=== PATIENT | male | born 1950 | race Caucasian/White ===

== ENCOUNTER → 2016-07-23 | Outpatient (CLI) | payer BC ==
[~2016-07-23] MED LIST: IOPAMIDOL (ISOVUE-300) 100 ML BTL IV ONE
[2016-07-23 15:09] LABS: CREATININE 1.2 mg/dL (0.7-1.3); GLOMERULAR FILTRATION RATE > 60
== END ==
LOC: FIMAGING 14:29
PROVIDERS: ATTEND Surgery
DX: K57.32 Diverticulitis of large intestine without perforation or abscess without bleeding (principal)
CPT/HCPCS: Q9967

== ENCOUNTER 2016-08-06 07:21 | Day surgery (SDC) | payer BC ==
[2016-08-06] MEDS ORDERED: LIDOCAINE 1% 5 ML SDV ONE (07:43)
[2016-08-06] MEDS ORDERED: fentaNYL 100 MCG/2 ML INJ ONE (08:21)
[2016-08-06] MEDS ORDERED: MIDAZOLAM 2 MG/2 ML VIAL ONE (08:21)
--- NOTE | 2016-09-04 05:10 | GOP ---
[f rep st] OPERATIVE REPORT DATE OF OPERATION: 08/06/2016 SURGEON: Lj Matias MD PREOPERATIVE DIAGNOSIS: Diverticulitis status post colostomy. POSTOPERATIVE DIAGNOSIS: Diverticulitis status post colostomy. PROCEDURE PERFORMED: Flexible sigmoidoscopy. FINDINGS: Patient was found to have an adequate rectum with no evidence of ongoing diverticulitis f or the anastomosis. DESCRIPTION OF PROCEDURE: Patient was taken to the special procedure room where he received IV bridgette tion with fentanyl and Versed. He was placed in left lateral decubitus position. The anus was well lubricated, and a flexible sig was introduced and passed approximately 15 cm. Mucosa appeared to b e intact with no evidence of ongoing active disease. Scope was removed. He tolerated procedure wel l, was taken to the recovery room in good condition. There were no complications. /[id number]/MODL
== END 2016-08-06 09:33 | disposition home health service (06) ==
LOC: FSGY 07:21
PROVIDERS: ATTEND Surgery
PROC: 0DJD8ZZ Inspection of Lower Intestinal Tract, Via Natural or Artificial Opening Endoscopic (ICD-10-PCS; principal; 2016-08-06 08:15)
DX: K57.92 Diverticulitis of intestine, part unspecified, without perforation or abscess without bleeding (principal)
CPT/HCPCS: J2250; J3010

== ENCOUNTER 2016-08-07 09:49 | Inpatient (IN) | payer BC ==
[~2016-08-07 09:49] MED LIST changes: +BUPIVACAINE 0.5% 30 ML SDV ONE; -IOPAMIDOL (ISOVUE-300) 100 ML BTL IV ONE; +cefOXitin SODIUM 1 GM in D5W 50 ML IV ONE
[2016-08-07] MEDS ORDERED: LIDOCAINE 1% 5 ML SDV ONE (10:17)
[2016-08-07] MEDS ORDERED: LIDOCAINE 1% 5 ML SDV ID PRN (10:30)
[2016-08-07] MEDS ORDERED: LR 1,000 ML IV ONE (10:30)
[2016-08-07] MEDS ORDERED: MIDAZOLAM 2 MG/2 ML VIAL ONE (12:53)
[2016-08-07] MEDS ORDERED: ROCURONIUM 100 MG/10 ML VIAL ONE (13:06)
[2016-08-07] MEDS ORDERED: LIDOCAINE 2% 100 MG/5 ML SYR ONE (13:06)
[2016-08-07] MEDS ORDERED: PROPOFOL 200 MG/20 ML VIAL ONE (13:06)
[2016-08-07] MEDS ORDERED: METOCLOPRAMIDE 10 MG/2 ML VIAL ONE (13:06)
[2016-08-07] MEDS ORDERED: fentaNYL 250 MCG/5 ML INJ ONE (13:06)
[2016-08-07] MEDS ORDERED: morphINE *ANESTHESIA ONLY* 10 MG/ML VIAL ONE (13:06)
[2016-08-07] MEDS ORDERED: DEXAMETHASONE 4 MG/ML VIAL ONE ×2 (13:06)
[2016-08-07] MEDS ORDERED: fentaNYL 100 MCG/2 ML INJ ONE ×3 (14:53→17:18)
[2016-08-07] MEDS ORDERED: SKIN ADHESIVE (DERMABOND) 1 EACH TP ONE (16:00)
[2016-08-07] MEDS ORDERED: SUGAMMADEX SODIUM 200 MG/2 ML VIAL IVP ONE (16:06)
[2016-08-07] MEDS ORDERED: hydrALAZINE 20 MG/ML VIAL ONE (16:11)
--- NOTE | 2016-08-07 16:43 | POSTOPPROG ---
Post Op Note Date of Operation: 08/07/16 Surgeon: Lj Matias Cytology Manager: Brenda Monsalve PA-C, SONDRA Peterson MS, Jennifer Mora MS Anesthesiologist: Girma Nolasco MD Anesthesia: GET(General Endotracheal) Pre-op Diagnosis: diverting colostomy, history of diverticulitis Post-op Diagnosis: same Procedure: Ex laparotomy, colostomy takedown Inf/Abcess present in the surg proc area at time of surgery?: No EBL: Minimal Complications: none Drains: Darron Rico, [place] Specimen(s): colostomy sent to pathology
[2016-08-07] MEDS ORDERED: NALOXONE HCL 0.4 MG/ML INJ IVP PRN (16:44)
[2016-08-07] MEDS ORDERED: MEPERIDINE 25 MG/ML SYR ONE (16:55)
[2016-08-07] MEDS ORDERED: HYDROmorphONE/DILAUDID 1 MG/ML SYR ONE (17:41)
[2016-08-07] MEDS: NS W/ 20 KCl/L 1,000 ML IV SCH (18:47)
[2016-08-07] MEDS: HYDROmorphONE/DILAUDID 6 MG/30 ML PCA IV PRN (18:48)
[2016-08-07] MEDS: cefOXitin SODIUM 2 GM in D5W 100 ML IV SCH ×2 (18:52→23:49)
[2016-08-07] MEDS: diphenhydrAMINE 25 MG CAP PO PRN (20:23)
[2016-08-08] MEDS: diphenhydrAMINE 25 MG CAP PO PRN ×3 (01:57→15:31)
[2016-08-08] MEDS: cefOXitin SODIUM 2 GM in D5W 100 ML IV SCH ×4 (05:31→23:54)
[2016-08-08 05:35] LABS: HEMATOCRIT 42.7 % (40.0-51.0); MEAN CELL HEMOGLOBIN 32.1 pg (27.9-34.1); MEAN CELL HEMOGLOBIN CONCENTR. 35.1 g/dL (32.4-36.7); MEAN CELL VOLUME 91.4 fL (81.5-99.8); RED BLOOD CELL COUNT 4.67 10^6/uL (4.40-6.38); RED CELL DISTRIBUTION WIDTH 12.5 % (11.5-15.2)
[2016-08-08 05:41] LABS: ANION GAP 9 mEq/L (8-16); CALCIUM 8.6 mg/dL (8.5-10.4); CARBON DIOXIDE 22 mEq/l (22-31); CHLORIDE 103 mEq/L (97-110); CREATININE 1.2 mg/dL (0.7-1.3); GLOMERULAR FILTRATION RATE > 60; GLUCOSE 109 mg/dL (70-100); POTASSIUM 4.7 mEq/L (3.5-5.2); SODIUM 134 mEq/L (134-144)
[2016-08-08] MEDS: HYDROmorphONE/DILAUDID 6 MG/30 ML PCA IV PRN (07:42)
[2016-08-08] MEDS: ENOXAPARIN 40 MG/0.4 ML SYR SC SCH (07:59)
[2016-08-08] MEDS: NS W/ 20 KCl/L 1,000 ML IV SCH (11:18)
[2016-08-08] MEDS: ACETAMINOPHEN 325 MG TAB PO PRN ×2 (15:30→23:56)
--- NOTE | 2016-08-08 17:13 | SOAPPROG ---
SOAP Progress Note Assessment/Plan: Assessment/plan: 66 Y M s/p colostomy takedown, POD#1. Pain controlled, +itching. Benedryl helping. Does not want to try morphine--didn 't help in past. Cr 1.2, cannot give toradol. Ok to add PO tylenol. Afebrile. Wounds intact. Drainage and uop ok. Continue routine post op care. Consider advancing to clears later today. S: Itchy. Pain mostly controlled. No n/v. O: alert, nad mmm no wob, clear anteriorly rrr abd soft, +BS, inc dried sanguinous drainage inferiorly, MIREYA serosanguinous 08/08/16 17:08 Objective: Vital Signs Temp Pulse Resp BP Pulse Ox 37.3 C 109 H 20 156/83 H 91 L 08/08/16 15:38 08/08/16 15:38 08/08/16 15:38 08/08/16 15:38 08/08/16 15:38 Laboratory Results 08/08/16 05:02 08/08/16 05:02 08/07/16 08/08/16 08/09/16 05:59 05:59 05:59 Intake Total 1650 Output Total 1740 1510 Balance -90 -1510 ICD10 Worksheet Patient Problems: Problems Problem Status Onset Diverticulitis large intestine Acute
[2016-08-08] MEDS ORDERED: PNEUMOC 13-VAL CONJ-DIP CRM/PF 0.5 ML SYR IM ONE (18:13)
[2016-08-08] MEDS: ONDANSETRON 4 MG/2 ML VIAL IVP PRN (18:36)
[2016-08-09] MEDS: HYDROmorphONE/DILAUDID 6 MG/30 ML PCA IV PRN (04:24)
[2016-08-09] MEDS: cefOXitin SODIUM 2 GM in D5W 100 ML IV SCH ×4 (05:44→23:14)
[2016-08-09] MEDS: ACETAMINOPHEN 325 MG TAB PO PRN (05:50)
[2016-08-09] MEDS: ENOXAPARIN 40 MG/0.4 ML SYR SC SCH (08:12)
[2016-08-09] MEDS ORDERED: KETOROLAC 15 MG/1 ML SDV IVP SCH (12:00)
[2016-08-09] MEDS ORDERED: NAPROXEN SODIUM 220 MG TAB PO PRN (12:28)
--- NOTE | 2016-08-09 12:30 | SOAPPROG ---
SOAP Progress Note Assessment/Plan: Assessment: 66yo male s/p colostomy takedown, laparotomy (extensive adhesions) Still having some itching likely secondary to pain meds. Tolerating small amount of clears/sips PE awake alert comfortable abdomen drain in place with serosag drainage, nondistended, soft Plan: awaiting further bowel function saw pt with Dr Matias 08/09/16 12:28 Objective: Vital Signs Temp Pulse Resp BP Pulse Ox 37.2 C 98 16 134/83 H 96 08/09/16 11:43 08/09/16 11:43 08/09/16 11:43 08/09/16 11:43 08/09/16 11:43 Laboratory Results 08/08/16 05:02 08/08/16 05:02 08/08/16 08/09/16 08/10/16 05:59 05:59 05:59 Intake Total 1650 4960 300 Output Total 1740 2790 970 Balance -90 2170 -670 ICD10 Worksheet Patient Problems: Problems Problem Status Onset Diverticulitis large intestine Acute
[2016-08-09] MEDS ORDERED: KETOROLAC 15 MG/1 ML SDV IVP ONE (13:00)
[2016-08-09] MEDS: NS W/ 20 KCl/L 1,000 ML IV SCH ×2 (14:22→23:07)
[2016-08-09] MEDS: KETOROLAC 15 MG/1 ML SDV IVP SCH ×2 (18:51→23:14)
[2016-08-09] MEDS: ONDANSETRON 4 MG/2 ML VIAL IVP PRN (22:25)
[2016-08-09] MEDS: diphenhydrAMINE 25 MG CAP PO PRN (22:31)
[2016-08-10] MEDS: KETOROLAC 15 MG/1 ML SDV IVP SCH (05:47)
[2016-08-10] MEDS: cefOXitin SODIUM 2 GM in D5W 100 ML IV SCH ×2 (05:47→12:47)
[2016-08-10] MEDS: ONDANSETRON 4 MG/2 ML VIAL IVP PRN ×2 (05:50→10:40)
[2016-08-10] MEDS: ENOXAPARIN 40 MG/0.4 ML SYR SC SCH (08:14)
[2016-08-10] MEDS ORDERED: NAPROXEN SODIUM 220 MG TAB PO PRN (12:00)
--- NOTE | 2016-08-10 12:04 | SOAPPROG ---
SOAP Progress Note Assessment/Plan: Assessment: DOING WELL POSTOP/ AFEBRILE/ +FLATUS/ WOUND OK Plan:HOME 1-2 DAYS/ ADVANCE DIET 09/03/16 20:48 Objective: Vital Signs Temp Pulse Resp BP Pulse Ox 37 C 99 16 127/78 H 93 08/10/16 10:00 08/10/16 10:00 08/10/16 10:00 08/10/16 10:00 08/10/16 10:00 Laboratory Results 08/08/16 05:02 08/08/16 05:02 08/09/16 08/10/16 08/11/16 05:59 05:59 05:59 Intake Total 3046 5700 Output Total 7530 0874 Balance 2174 794 ICD10 Worksheet Patient Problems: Problems Problem Status Onset Anastomotic leak of intestine Acute Complication of colostomy Acute Diverticulitis large intestine Acute
[2016-08-10] MEDS ORDERED: ONDANSETRON DISINTEGRATING 4 MG TAB PO PRN (12:28)
[2016-08-10] MEDS ORDERED: OXYCODONE/APAP 5/325 TAB PO PRN (12:28)
[2016-08-10] MEDS: HYDROCODONE/APAP 5/325 TAB PO PRN (12:59)
--- NOTE | 2016-08-10 13:07 | SOAPPROG ---
SOAP Progress Note Assessment/Plan: Assessment: 66yo male s/p colostomy takedown, laparotomy (extensive adhesions) Patient is out of bed, sitting in chair comfortably. Was able to walk the hallways this morning with his . Has been able to pass gas. Did remark that he has some difficulty sleeping and would like to start taking Trazodone. PE awake, alert, nad ctab rrr abdominal incisions CDI, no erythema or drainage Plan: Catheter may be removed. Can take home med of trazodone 100 mg po to help him sleep. Percocet and [place] PO prn pain if needed. Possible discharge on Saturday. 08/10/16 12:59 Objective: Vital Signs Temp Pulse Resp BP Pulse Ox 37 C 95 16 118/62 98 08/10/16 12:00 08/10/16 12:00 08/10/16 12:00 08/10/16 12:00 08/10/16 12:00 Laboratory Results 08/08/16 05:02 08/08/16 05:02 08/09/16 08/10/16 08/11/16 05:59 05:59 05:59 Intake Total 4960 3437 Output Total 5682 0118 Balance 2170 792 ICD10 Worksheet Patient Problems: Problems Problem Status Onset Diverticulitis large intestine Acute
[2016-08-10] MEDS ORDERED: BISACODYL 10 MG SUPP PR PRN (13:19)
[2016-08-10] MEDS ORDERED: MAGNESIUM HYDROXIDE 30 ML UDCUP PO PRN (13:19)
[2016-08-10] MEDS ORDERED: POLYETHYLENE GLYCOL 3350 17 GM PKT PO PRN (13:19)
[2016-08-10] MEDS ORDERED: LACTULOSE 20 GM/30 ML UDCUP PO PRN (13:19)
[2016-08-10] MEDS: SENNOSIDES/DOCUSATE SODIUM TAB PO SCH (20:45)
[2016-08-10] MEDS: traZODone 100 MG TAB PO PRN (20:45)
[2016-08-11] MEDS: NS W/ 20 KCl/L 1,000 ML IV SCH ×2 (00:12→08:11)
[2016-08-11] MEDS: HYDROCODONE/APAP 5/325 TAB PO PRN ×4 (04:59→14:54)
[2016-08-11 06:47] LABS: % IMMATURE GRANULYOCYTES 0.5 % (0.0-1.1); ABSOLUTE IMMATURE GRANULOCYTES 0.04 10^3/uL (0.00-0.10); ADD DIFF? NO; ADD MORPH? NO; ADD SCAN? NO; ATYPICAL LYMPHOCYTE FLAG 20 (0-99); FRAGMENT RBC FLAG 0 (0-99); HEMATOCRIT 36.4 % (40.0-51.0); HEMOGLOBIN 13.1 g/dL (13.7-17.5); LEFT SHIFT FLG 0 (0-99); LIPEMIA HEMOLYSIS FLAG 90 (0-99); MEAN CELL HEMOGLOBIN 32.4 pg (27.9-34.1); MEAN CELL VOLUME 90.1 fL (81.5-99.8); MEAN PLATELET VOLUME 9.1 fL (8.7-11.7); PLATELET CLUMPS FLAG 10 (0-99); PLATELET COUNT 160 10^3/uL (150-400); RED BLOOD CELL COUNT 4.04 10^6/uL (4.40-6.38); RED CELL DISTRIBUTION WIDTH 12.2 % (11.5-15.2)
[2016-08-11 06:51] LABS: INR 1.14 (0.83-1.16); PROTIME(PATIENT) 14.5 SEC (12.0-15.0)
[2016-08-11 06:52] LABS: APTT 33.1 SEC (23.0-38.0)
[2016-08-11 07:04] LABS: ANION GAP 10 mEq/L (8-16); CALCIUM 7.9 mg/dL (8.5-10.4); CARBON DIOXIDE 19 mEq/l (22-31); CHLORIDE 106 mEq/L (97-110); CREATININE 0.8 mg/dL (0.7-1.3); GLOMERULAR FILTRATION RATE > 60; GLUCOSE 94 mg/dL (70-100); POTASSIUM 4.3 mEq/L (3.5-5.2); SODIUM 135 mEq/L (134-144)
[2016-08-11] MEDS: ENOXAPARIN 40 MG/0.4 ML SYR SC SCH (08:20)
[2016-08-11] MEDS: SENNOSIDES/DOCUSATE SODIUM TAB PO SCH ×2 (08:21→21:03)
--- NOTE | 2016-08-11 12:42 | SOAPPROG ---
SOAP Progress Note Assessment/Plan: Assessment: s/p colostomy takedown. Flatus but no BM yet. Regular diet Maybe home tomorrow S: Pain controlled O: Sitting in chair. CTAB no increased work of breathing Regular rate BS present. Incision cdi Plan: 08/11/16 12:41 Objective: Vital Signs Temp Pulse Resp BP Pulse Ox 36.8 C 93 16 125/75 H 92 08/11/16 10:54 08/11/16 10:54 08/11/16 10:54 08/11/16 10:54 08/11/16 10:54 Laboratory Results 08/11/16 06:30 08/11/16 06:30 08/10/16 08/11/16 08/12/16 05:59 05:59 05:59 Intake Total 3326 0722 Output Total 6912 6897 Balance 792 454 PT 14.5 SEC (12.0-15.0) 08/11/16 06:30 INR 1.14 (0.83-1.16) 08/11/16 06:30 ICD10 Worksheet Patient Problems: Problems Problem Status Onset Diverticulitis large intestine Acute
[2016-08-11] MEDS: traZODone 100 MG TAB PO PRN (21:03)
[2016-08-12 07:54] VITALS: BP 138/84; PULSE 94; RESP 14; TEMP 98.1; O2SAT 94
[2016-08-12] MEDS: ENOXAPARIN 40 MG/0.4 ML SYR SC SCH (08:20)
[2016-08-12] MEDS: SENNOSIDES/DOCUSATE SODIUM TAB PO SCH (08:22)
--- NOTE | 2016-08-12 09:56 | SOAPPROG ---
SOAP Progress Note Assessment/Plan: Assessment: s/p colostomy takedown. Flatus and BM Regular diet Home today S: Pain controlled O: Sitting in chair. CTAB no increased work of breathing Regular rate BS present. Incision cdi MIREYA with serosang fluid [place] in place Plan: 08/11/16 12:41 08/12/16 09:56 Objective: Vital Signs Temp Pulse Resp BP Pulse Ox 36.7 C 94 14 138/84 H 94 08/12/16 07:53 08/12/16 07:53 08/12/16 07:53 08/12/16 07:53 08/12/16 07:53 Laboratory Results 08/11/16 06:30 08/11/16 06:30 08/11/16 08/12/16 08/13/16 05:59 05:59 05:59 Intake Total 3939 1360 Output Total 3485 2930 75 Balance 454 -1570 -75 PT 14.5 SEC (12.0-15.0) 08/11/16 06:30 INR 1.14 (0.83-1.16) 08/11/16 06:30 ICD10 Worksheet Patient Problems: Problems Problem Status Onset Diverticulitis large intestine Acute
[2016-08-12] MEDS: HYDROCODONE/APAP 5/325 TAB PO PRN (11:33)
--- NOTE | 2016-08-13 21:32 | GDS ---
[f rep st] DISCHARGE SUMMARY REASON FOR ADMISSION: Elective surgery for colostomy takedown. HOSPITAL COURSE: The patient is a pleasant 66-year-old male who came in for elective colostomy take down surgery. He had previous surgery for diverticulitis. He underwent surgery with Dr. Matias on 0 08/07/2016, laparotomy with ostomy takedown. The patient tolerated the surgery well, and his hospita l course was fairly unremarkable, as he eventually regained bowel function. He is instructed to follow up at our office in approximately 10 days. No heavy lifting for 6 weeks. Regular diet. Pathology from the surgery was benign. /[id number]/MODL
--- NOTE | 2016-09-04 05:20 | GOP ---
[f rep st] OPERATIVE REPORT DATE OF OPERATION: 08/07/2016 SURGEON: Lj Matias MD RELIGIOUS HEALER: JULIA Cabral. ANESTHESIOLOGIST: Dr. Micah Nolasco. PREOPERATIVE DIAGNOSIS: Status post perforated diverticulitis with diverting colostomy. POSTOPERATIVE DIAGNOSIS: Status post perforated diverticulitis with diverting colostomy. PROCEDURE PERFORMED: 1. Laparoscopy, exploratory laparotomy with colostomy takedown and low anterior anastomosis. 2. Splenic flexure mobilization. FINDINGS: Patient was found with extensive adhesions preventing a laparoscopic approach and viable colon that would reach to the pelvis. The rectal stump, however, was quite fixed in the pelvis and difficult to dissect free. DESCRIPTION OF PROCEDURE: Patient was taken to the operating room where he received satisfactory ge neral endotracheal anesthesia by Dr. Nolasco, placed in supine position in low stirrups, prepped an d draped in the usual sterile fashion. A short incision was made in the left lower quadrant. A Titi ess needle was inserted. Pneumoperitoneum was established. A trocar was introduced. Adequate visu alization was obtained. As the adhesions were quite extensive in the abdomen it was elected to proc eed with laparotomy. Midline incision was made through the previous old scar and carried carefully through the linea alba. Multiple adhesions were taken down until the pelvis was freed of small nereida l which could be retracted up to the upper abdomen. The colostomy was freed up internally and the l ateral attachments of the descending colon were mobilized up around the splenic flexure. A circulat ion skin incision was then made freeing up the colostomy from the skin level and down through the melendez bcutaneous tissue down to the fascia where it was freed up and dissected free and then reduced into the abdomen. The distal portion of the colon was excised with a LULA stapler and the proximal colon was then mobilized down to the pelvis and appeared to reach adequately. The rectal stump was then f cris up. It was dissected free as best we could from the pelvic area where it was frozen to both la teral monae. Both ureters were identified and spared from injury. As much of the stump as possible was freed up, it did not appear that we could reach it transanally with the EEA stapler. At that p oint, it was elected to open the stump and to a hand-sewn end-to-end anastomosis. This was then com pleted with interrupted single layer of 3-0 silk sutures around the entire circumference of the anas tomosis which was then covered with some adjacent fatty tissue and some tissue glue. The anastomosi s was tested under water and appeared to be quite airtight with no particular difficulties. At that point, a 15 mm MIREYA drain was brought out through one of the trocar sites and placed in the pelvis. The linea alba was closed with a running #1 PDS suture. Wound was infiltrated with 0.5% Marcaine. Skin was closed with skin aaliyah. The colostomy site was closed in 2 layers with 0 Vicryl for the peritoneal layer and #1 PDS for the fascial layer. Skin was closed over a MIREYA drain with skin staple s. That wound was also infiltrated with 0.5% Marcaine. He tolerated procedure well, was taken to [facility] recovery room in satisfactory condition. Blood loss was negligible. /[id number]/MODL
== END 2016-08-12 11:56 | disposition home or self-care (01) | DRG 346 ==
LOC: F3N 09:49 → F3E 15:00
PROVIDERS: ADMIT Surgery; ATTEND Surgery
PROC: 0DSM0ZZ Reposition Descending Colon, Open Approach (ICD-10-PCS; principal; 2016-08-07 14:00)
DX: Z43.3 Encounter for attention to colostomy (principal); L29.8 Other pruritus; T40.605A Adverse effect of unspecified narcotics, initial encounter; Z53.31 Laparoscopic surgical procedure converted to open procedure
CPT/HCPCS: G0009; J0360; J0694; J0697; J1100; J1170; J1200; J1650; J1885; J2001; J2250; J2405; J2704; J2765; J3010

== ENCOUNTER 2016-08-16 09:19 | Inpatient (IN) | payer BC ==
--- NOTE | 2016-08-16 09:27 | EDPHY ---
H & P HPI/ROS: CHIEF COMPLAINT: Stool coming out of colostomy reversal incision. HISTORY OF PRESENT ILLNESS: The patient is a 66-year-old male status-post colostomy reversal on 08/07 who presents with stool exuding from the colostomy incision. He reports that he noticed a small amount of stool coming out of the incision this morning during breakfast. Colostomy had been performed for diverticulitis. When he sat down to go to the bathroom "a bunch of stool started puking out." He admits associated abdominal pain. He denies fever, vomiting. He had a small bowel movement yesterday. He drank Miralax today as he felt constipated. REVIEW OF SYSTEMS: A ten point review of systems was performed and is negative with the exception of the items mentioned in the HPI. 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 psh: Colostomy reversal, Colostomy for diverticulitis, BACK [id number], LEFT PELVIS FX, L ORIF elbow, - Social History Smoking Status: Former smoker Additional Social History: 1. Former smoker 2. Lives with - Physical Exam Exam: General Appearance: Alert. Vital signs reviewed. HR 120. Blood pressure 159/ 91. Afebrile. He appears ill. Eyes: Pupils equal and round, no conjunctival injection, no discharge. Anicteric. ENT, Mouth: Mucous membranes are moist, no oropharyngeal erythema or edema. Neck: No lymphadenopathy, supple. Respiratory: Lungs are clear to auscultation; no wheezes, rales, or rhonchi. Slightly increased respiratory rate. Cardiovascular: Tachycardic. Gastrointestinal: Abdomen is soft and mildly tender tender, no masses or organomegaly, bowel sounds present. Stool from midline vertical abdominal incision, aaliyah intact. Skin: Warm and dry, no rashes on exposed skin, normal color. Back: Nontender to palpation over the thoracolumbar spine. No CVAT. Extremities: No lower extremity edema, no calf tenderness or swelling. Neurological: Alert and oriented. Moving all four extremities easily and equally. Psychiatric: Normal affect. Constitutional: Initial Vital Signs Temperature (C) 36.5 C 08/16/16 09:20 Heart Rate 125 H 08/16/16 09:20 Respiratory Rate 24 H 08/16/16 09:20 Blood Pressure 159/91 H 08/16/16 09:20 O2 Sat (%) 99 08/16/16 09:20 O2 Delivery Mode Nasal Cannula O2 (L/minute) 1 Allergies/Adverse Reactions: gluten Allergy (Severe, Verified 08/02/16 14:14) Other-Enter Comments codeine Allergy (Verified 08/02/16 14:14) Rash Home Medications: Medication Instructions Recorded traZODone [traZODONE 100MG (*)] 100 mg PO HS PRN 03/27/16 Naproxen Sodium [Aleve 220 MG (*)] 220 - 440 mg PO DAILY PRN 08/02/16 Hydrocodone/APAP 5/325 [[place] 1 - 2 tab PO Q4HRS PRN 08/16/16 5/325 (*)] Medical Decision Making ED Course/Re-evaluation: I reviewed the patient's past medical records. He initially had surgery 2015 for perforated diverticulitis and had a colostomy placed. He had the colostomy reversed 08/07 and was discharged from the hospital 08/13. Patient surgical incision appears intact, without dehiscence, but he has stool oozing from his abdominal incision, indicative of anastomotic breakdown and intra-abdominal contamination. The differential diagnosis is limited in this setting, as it is clear what has occurred. He will require surgery. 0955: Consulted with Dr. Matias, surgery. He is on his way to visit the patient. 1023: Dr. Matias is in the ED and has completed his evaluation of the patient. Surgery planned. - Data Points Laboratory Results: Laboratory Results 08/16/16 09:50 08/16/16 09:50 08/16/16 08/16/16 08/16/16 09:50 09:50 09:50 WBC 13.91 10^3/uL H 10^3/uL (3.80-9.50) RBC 4.22 10^6/uL L 10^6/uL (4.40-6.38) Hgb 13.9 g/dL g/dL (13.7-17.5) Hct 37.6 % L % (40.0-51.0) MCV 89.1 fL fL (81.5-99.8) MCH 32.9 pg pg (27.9-34.1) MCHC 37.0 g/dL H g/dL (32.4-36.7) RDW 12.3 % % (11.5-15.2) Plt Count 350 10^3/uL 10^3/uL (150-400) MPV 8.8 fL fL (8.7-11.7) Neut % (Auto) 92.4 % H % (39.3-74.2) Lymph % (Auto) 2.7 % L % (15.0-45.0) [place] % (Auto) 3.8 % L % (4.5-13.0) Eos % (Auto) 0.2 % L % (0.6-7.6) Baso % (Auto) 0.3 % % (0.3-1.7) Nucleat RBC Rel Count 0.0 % % (0.0-0.2) Absolute Neuts (auto) 12.85 10^3/uL H 10^3/uL (1.70-6.50) Absolute Lymphs (auto) 0.37 10^3/uL L 10^3/uL (1.00-3.00) Absolute Monos (auto) 0.53 10^3/uL 10^3/uL (0.30-0.80) Absolute Eos (auto) 0.03 10^3/uL 10^3/uL (0.03-0.40) Absolute Basos (auto) 0.04 10^3/uL 10^3/uL (0.02-0.10) Absolute Nucleated RBC 0.00 10^3/uL 10^3/uL (0-0.01) Immature Gran % 0.6 % % (0.0-1.1) Seg Neutrophils % 85 % % Band Neutrophils % 6 % % Lymphocytes % 6 % % Monocytes % 3 % % Immature Gran # 0.09 10^3/uL 10^3/uL (0.00-0.10) Absolute Seg Neuts 11.82 10^/uL H 10^/uL (1.70-6.50) Absolute Band Neuts 0.83 10^3/uL H 10^3/uL (0.00-0.70) Absolute Lymphocytes 0.83 10^3/uL L 10^3/uL (1.00-3.00) Absolute Monocytes 0.42 10^3/uL 10^3/uL (0.30-0.80) RBC/WBC/PLT Morphology NORMAL (NORMAL) Toxic Granulation PRESENT H Platelet Estimate ADEQUATE (ADEQ) Sodium 131 mEq/L L mEq/L (134-144) Potassium 3.9 mEq/L mEq/L (3.5-5.2) Chloride 96 mEq/L L mEq/L (97-110) Carbon Dioxide 17 mEq/l L mEq/l (22-31) Anion Gap 18 mEq/L H mEq/L (8-16) BUN 16 mg/dL mg/dL (7-23) Creatinine 1.0 mg/dL mg/dL (0.7-1.3) Estimated GFR > 60 Glucose 118 mg/dL H mg/dL (70-100) Calcium 8.8 mg/dL mg/dL (8.5-10.4) Total Bilirubin 1.6 mg/dL H mg/dL (0.1-1.4) AST 39 IU/L IU/L (17-59) ALT 47 IU/L IU/L (21-72) Alkaline Phosphatase 144 IU/L H IU/L (38-126) Total Protein 7.5 g/dL g/dL (6.3-8.2) Albumin 3.6 g/dL g/dL (3.5-5.0) Patient ABO/Rh O POSITIVE Antibody Screen NEGATIVE Medications Given: Discontinued Medications Sodium Chloride (Ns) 1,000 mls @ 0 mls/hr IV ONCE ONE PRN Reason: Wide Open Stop: 08/16/16 10:02 Last Admin: 08/16/16 09:20 Dose: 1,000 mls Sodium Chloride (Ns) 1,000 mls @ 0 mls/hr IV ONCE ONE PRN Reason: Wide Open Stop: 08/16/16 10:30 Last Admin: 08/16/16 10:36 Dose: 1,000 mls Morphine Sulfate (Morphine) 6 mg IVP EDNOW ONE Stop: 08/16/16 09:56 Last Admin: 08/16/16 10:00 Dose: 6 mg Departure - Departure Disposition: [facility] Inpatient Acute Clinical Impression: Complication of colostomy, Anastomotic leak of intestine Condition: Fair Report Scribed for: Kate Aguilera Report Scribed by: Ronni Claudio Date of Report: 08/16/16 Time of Report: 09:35 Physician Review and Approval Statement: 08/16/16 09:27 Portions of this note were transcribed by the medical cost consultant. I, Dr. Kate Aguilera, personally performed the history, physical exam, and medical decision- making; and confirmed the accuracy of the information in the transcribed note.
[2016-08-16] MEDS ORDERED: NS 1,000 ML IV ONE ×2 (10:01→10:29)
[2016-08-16 10:07] LABS: % IMMATURE GRANULYOCYTES 0.6 % (0.0-1.1); ABSOLUTE IMMATURE GRANULOCYTES 0.09 10^3/uL (0.00-0.10); ADD DIFF? NO; ADD MORPH? NO; ADD SCAN? YES; ATYPICAL LYMPHOCYTE FLAG 20 (0-99); FRAGMENT RBC FLAG 0 (0-99); HEMATOCRIT 37.6 % (40.0-51.0); HEMOGLOBIN 13.9 g/dL (13.7-17.5); LIPEMIA HEMOLYSIS FLAG 90 (0-99); MEAN CELL HEMOGLOBIN 32.9 pg (27.9-34.1); MEAN CELL VOLUME 89.1 fL (81.5-99.8); MEAN PLATELET VOLUME 8.8 fL (8.7-11.7); PLATELET CLUMPS FLAG 0 (0-99); PLATELET COUNT 350 10^3/uL (150-400); RED BLOOD CELL COUNT 4.22 10^6/uL (4.40-6.38); RED CELL DISTRIBUTION WIDTH 12.3 % (11.5-15.2)
[2016-08-16 10:16] LABS: LEFT SHIFT FLG 170 (0-99)
[2016-08-16 10:19] LABS: ALANINE AMINOTRANSFERASE 47 IU/L (21-72); ALBUMIN 3.6 g/dL (3.5-5.0); ALKALINE PHOSPHATASE 144 IU/L (38-126); ANION GAP 18 mEq/L (8-16); ASPARTATE AMINOTRANSFERASE 39 IU/L (17-59); BILIRUBIN,TOTAL 1.6 mg/dL (0.1-1.4); CALCIUM 8.8 mg/dL (8.5-10.4); CARBON DIOXIDE 17 mEq/l (22-31); CHLORIDE 96 mEq/L (97-110); GLOMERULAR FILTRATION RATE > 60; GLUCOSE 118 mg/dL (70-100); POTASSIUM 3.9 mEq/L (3.5-5.2); SODIUM 131 mEq/L (134-144); TOTAL PROTEIN 7.5 g/dL (6.3-8.2)
[2016-08-16] MEDS ORDERED: ERTAPENEM 1 GM in NS 100 ML IV ONE (10:29)
[2016-08-16 10:42] LABS: SCAN POSITIVE
[2016-08-16] MEDS ORDERED: OXYCODONE/APAP 5/325 TAB PO PRN (10:57)
[2016-08-16] MEDS ORDERED: HYDROCODONE/APAP 5/325 TAB PO PRN ×2 (10:57→14:22)
[2016-08-16] MEDS ORDERED: ACETAMINOPHEN 325 MG TAB PO PRN ×2 (10:57→14:22)
[2016-08-16] MEDS ORDERED: HYDROmorphONE/DILAUDID 1 MG/ML SYR IVP PRN (10:57)
[2016-08-16] MEDS ORDERED: ONDANSETRON 4 MG/2 ML VIAL IVP PRN ×2 (10:57→14:22)
[2016-08-16] MEDS ORDERED: NS 1,000 ML IV SCH (11:00)
[2016-08-16] MEDS ORDERED: NALOXONE HCL 0.4 MG/ML INJ IVP PRN ×3 (11:03→17:10)
[2016-08-16 11:21] LABS: PLATELET ESTIMATE ADEQUATE (ADEQ)
[2016-08-16 11:29] LABS: TOXIC GRANULATION PRESENT
[2016-08-16] MEDS ORDERED: MIDAZOLAM 2 MG/2 ML VIAL ONE (12:10)
[2016-08-16] MEDS ORDERED: morphINE *ANESTHESIA ONLY* 10 MG/ML VIAL ONE (12:20)
[2016-08-16] MEDS ORDERED: DEXAMETHASONE 4 MG/ML VIAL ONE (12:21)
[2016-08-16] MEDS ORDERED: fentaNYL 100 MCG/2 ML INJ ONE ×2 (12:21→15:27)
[2016-08-16] MEDS ORDERED: ONDANSETRON 4 MG/2 ML VIAL ONE (12:21)
[2016-08-16] MEDS ORDERED: PROPOFOL/EMULSION 500 MG/50 ML BOTTLE IV ONE (12:21)
[2016-08-16] MEDS ORDERED: LIDOCAINE 2% 100 MG/5 ML SYR ONE (12:21)
[2016-08-16] MEDS ORDERED: ROCURONIUM 50 MG/5 ML VIAL ONE ×2 (12:21→13:24)
[2016-08-16] MEDS ORDERED: LIDOCAINE 2% JELLY 5 ML TUBE ONE (12:50)
[2016-08-16] MEDS ORDERED: LIDOCAINE HCL 160 MG/4 ML LTA KIT TP ONE (12:50)
[2016-08-16] MEDS ORDERED: PHENYLEPHRINE 0.5% NASAL 15 ML SPRAY ONE (12:55)
[2016-08-16] MEDS ORDERED: PROPOFOL 200 MG/20 ML VIAL ONE (14:03)
[2016-08-16] MEDS ORDERED: SUGAMMADEX SODIUM 200 MG/2 ML VIAL IVP ONE (14:25)
--- NOTE | 2016-08-16 14:43 | POSTOPPROG ---
Post Op Note Date of Operation: 08/16/16 Surgeon: Lj Matias Guest Relations Executive: Hitesh Torres MD, SONDRA Peterson MS Anesthesiologist: NANDINI ALDRIDGE Anesthesia: GET(General Endotracheal) Pre-op Diagnosis: perforated colon Post-op Diagnosis: same with anastomotic breakdown Indication: peritonitis Procedure: lapartomy, colostomy, wound vac placement Findings: anastomotic breakdown, gross fecal contamination Inf/Abcess present in the surg proc area at time of surgery?: Yes Depth: Organ Space EBL: Minimal Complications: none Drains: Darron Rico, Wound Vac Specimen(s): colon sent to pathology
[2016-08-16] MEDS ORDERED: HYDROmorphONE/DILAUDID 1 MG/ML SYR ONE (15:27)
[2016-08-16] MEDS: HYDROmorphONE/DILAUDID 6 MG/30 ML PCA IV PRN (17:24)
--- NOTE | 2016-08-16 20:27 | SOAPPROG ---
SOAP Progress Note Assessment/Plan: Assessment: POSTOP DOING WELL WITH ADEQUATE URINE OUTPUT AND MINIMAL MIREYA DRAINAGE WOUND OKAY / AFEBRILE / OSTOMY 0 K Plan: JACQUE PERKINS AND A.MJames 08/16/16 20:26 Objective: Vital Signs Temp Pulse Resp BP Pulse Ox 37 C 112 H 16 123/76 H 96 08/16/16 19:53 08/16/16 19:53 08/16/16 19:53 08/16/16 19:53 08/16/16 19:53 08/15/16 08/16/16 08/17/16 05:59 05:59 05:59 Intake Total 2000 Output Total 330 Balance 1670 ICD10 Worksheet Patient Problems: Problems Problem Status Onset Anastomotic leak of intestine Acute Complication of colostomy Acute Diverticulitis large intestine Acute
[2016-08-17] MEDS: HYDROmorphONE/DILAUDID 6 MG/30 ML PCA IV PRN ×2 (01:03→07:46)
[2016-08-17 05:17] LABS: % IMMATURE GRANULYOCYTES 0.4 % (0.0-1.1); ABSOLUTE IMMATURE GRANULOCYTES 0.04 10^3/uL (0.00-0.10); ADD DIFF? NO; ADD MORPH? NO; ADD SCAN? YES; ATYPICAL LYMPHOCYTE FLAG 0 (0-99); FRAGMENT RBC FLAG 0 (0-99); HEMATOCRIT 31.1 % (40.0-51.0); HEMOGLOBIN 10.7 g/dL (13.7-17.5); LIPEMIA HEMOLYSIS FLAG 90 (0-99); MEAN CELL HEMOGLOBIN 31.9 pg (27.9-34.1); MEAN CELL HEMOGLOBIN CONCENTR. 34.4 g/dL (32.4-36.7); MEAN CELL VOLUME 92.8 fL (81.5-99.8); MEAN PLATELET VOLUME 8.8 fL (8.7-11.7); PLATELET CLUMPS FLAG 0 (0-99); PLATELET COUNT 341 10^3/uL (150-400); RED BLOOD CELL COUNT 3.35 10^6/uL (4.40-6.38); RED CELL DISTRIBUTION WIDTH 12.8 % (11.5-15.2)
[2016-08-17 05:22] LABS: LEFT SHIFT FLG 300 (0-99)
[2016-08-17 05:26] LABS: ANION GAP 10 mEq/L (8-16); CALCIUM 7.8 mg/dL (8.5-10.4); CARBON DIOXIDE 20 mEq/l (22-31); CHLORIDE 105 mEq/L (97-110); CREATININE 0.9 mg/dL (0.7-1.3); GLOMERULAR FILTRATION RATE > 60; GLUCOSE 115 mg/dL (70-100); POTASSIUM 4.6 mEq/L (3.5-5.2); SODIUM 135 mEq/L (134-144)
[2016-08-17 06:38] LABS: SCAN NEGATIVE
[2016-08-17] MEDS: NS 1,000 ML IV SCH ×2 (08:54→18:00)
[2016-08-17] MEDS ORDERED: ERTAPENEM 1 GM in NS 100 ML IV SCH (09:00)
[2016-08-17] MEDS: ERTAPENEM 1 GM in NS 100 ML IV SCH (09:08)
[2016-08-17] MEDS ORDERED: NALOXONE HCL 0.4 MG/ML INJ IVP PRN (10:56)
[2016-08-17] MEDS: morphINE PCA 30 MG/30 ML PCA IV PRN ×2 (11:13→23:48)
--- NOTE | 2016-08-17 12:55 | SOAPPROG ---
SOAP Progress Note Assessment/Plan: Assessment: 66yo male s/p laparotomy for leak/breakdown from recent colostomy takedown, new colostomy placed. Hx of diverticulitis. Pain controlled but itching continues, a problem pt has had after each surgery, wants to try morhine TRAP PULLER instead of dilaudid PE awake alert abdomen VAC in place, ostomy in place, abdomen soft Plan: keep NPO for now will discuss with Dr Matias 08/17/16 12:50 Objective: Vital Signs Temp Pulse Resp BP Pulse Ox 36.6 C 97 16 120/72 93 08/17/16 10:00 08/17/16 10:00 08/17/16 10:00 08/17/16 10:00 08/17/16 10:00 Laboratory Results 08/17/16 04:32 08/17/16 04:32 08/16/16 08/17/16 08/18/16 05:59 05:59 05:59 Intake Total 1999 Output Total 1790 Balance 210 ICD10 Worksheet Patient Problems: Problems Problem Status Onset Anastomotic leak of intestine Acute Complication of colostomy Acute Diverticulitis large intestine Acute
[2016-08-17] MEDS: FAMOTIDINE 20 MG TAB PO SCH (20:46)
[2016-08-17] MEDS: traZODone 100 MG TAB PO PRN (21:50)
[2016-08-18] MEDS: NS 1,000 ML IV SCH ×3 (02:05→18:13)
[2016-08-18] MEDS: FAMOTIDINE 20 MG TAB PO SCH (07:50)
[2016-08-18] MEDS: ERTAPENEM 1 GM in NS 100 ML IV SCH (07:50)
--- NOTE | 2016-08-18 09:52 | SOAPPROG ---
SOAP Progress Note Assessment/Plan: Assessment: 66yo male s/p laparotomy for leak/breakdown from recent colostomy takedown, new colostomy placed. Hx of diverticulitis. Pain controlled but itching improves on Morphine CONTINUOUS PROCESS TANNER ROTARY DRUM --- a problem pt has had after each surgery, wants to try clear liquids, reports some gas coming out of ostomy PE awake alert chest CTA B/L abdomen VAC in place, ostomy in place, abdomen soft, no significant bowel sounds , MIREYA drain with small amount of serosag drainage Plan: keep NPO for now might try trial if small amount of clears but will discuss with Dr Matias 08/17/16 12:50 08/18/16 09:51 Objective: Vital Signs Temp Pulse Resp BP Pulse Ox 36.9 C 92 16 133/71 H 96 08/18/16 08:00 08/18/16 08:00 08/18/16 08:00 08/18/16 08:00 08/18/16 08:00 Laboratory Results 08/17/16 04:32 08/17/16 04:32 08/17/16 08/18/16 08/19/16 05:59 05:59 05:59 Intake Total 1999 3097 Output Total 1790 1315 200 Balance 210 1782 -200 ICD10 Worksheet Patient Problems: Problems Problem Status Onset Anastomotic leak of intestine Acute Complication of colostomy Acute Diverticulitis large intestine Acute
[2016-08-18] MEDS: morphINE PCA 30 MG/30 ML PCA IV PRN (12:18)
[2016-08-18] MEDS: traZODone 100 MG TAB PO PRN (20:36)
[2016-08-18] MEDS ORDERED: POLYETHYLENE GLYCOL 3350 17 GM PKT PO PRN (21:15)
[2016-08-18] MEDS ORDERED: MAGNESIUM HYDROXIDE 30 ML UDCUP PO PRN (21:15)
[2016-08-18] MEDS ORDERED: BISACODYL 10 MG SUPP PR PRN (21:15)
[2016-08-19] MEDS: NS 1,000 ML IV SCH ×3 (02:18→17:24)
[2016-08-19] MEDS: morphINE PCA 30 MG/30 ML PCA IV PRN ×2 (04:29→16:55)
[2016-08-19] MEDS: SENNOSIDES/DOCUSATE SODIUM TAB PO SCH ×2 (08:35→20:41)
[2016-08-19] MEDS: FAMOTIDINE 20 MG TAB PO SCH (08:35)
[2016-08-19] MEDS: ERTAPENEM 1 GM in NS 100 ML IV SCH (08:36)
--- NOTE | 2016-08-19 11:15 | SOAPPROG ---
SOAP Progress Note Assessment/Plan: Assessment: 66yo male s/p laparotomy for leak/breakdown from recent colostomy takedown, new colostomy placed. Hx of diverticulitis. Pain controlled but itching improves on Morphine QUILLER HAND --- a problem pt has had after each surgery, on clear liquids, reports some gas coming out of ostomy. Nervous about having further surgery down the line in 6-12 months. PE awake alert chest CTA B/L abdomen VAC in place, ostomy in place, abdomen soft, no significant bowel sounds , MIREYA drain with small amount of serosag drainage Plan: keep clears for now until ostomy output. wound vac change Saturday, ordered wound care consult. will discuss with Dr Matias 08/17/16 12:50 08/18/16 09:51 08/19/16 11:13 Objective: Vital Signs Temp Pulse Resp BP Pulse Ox 36.7 C 99 16 144/82 H 95 08/19/16 09:58 08/19/16 09:58 08/19/16 09:58 08/19/16 09:58 08/19/16 09:58 Laboratory Results 08/17/16 04:32 08/17/16 04:32 08/18/16 08/19/16 08/20/16 05:59 05:59 05:59 Intake Total 0080 58727 Output Total 4288 2164 700 Balance 1782 9742 -700 ICD10 Worksheet Patient Problems: Problems Problem Status Onset Anastomotic leak of intestine Acute Complication of colostomy Acute Diverticulitis large intestine Acute
[2016-08-19] MEDS: traZODone 100 MG TAB PO PRN (20:42)
[2016-08-20 05:04] LABS: % IMMATURE GRANULYOCYTES 1.2 % (0.0-1.1); ABSOLUTE IMMATURE GRANULOCYTES 0.08 10^3/uL (0.00-0.10); ADD DIFF? NO; ADD MORPH? NO; ADD SCAN? YES; FRAGMENT RBC FLAG 0 (0-99); HEMATOCRIT 27.1 % (40.0-51.0); HEMOGLOBIN 9.7 g/dL (13.7-17.5); LEFT SHIFT FLG 30 (0-99); LIPEMIA HEMOLYSIS FLAG 90 (0-99); MEAN CELL HEMOGLOBIN 32.3 pg (27.9-34.1); MEAN CELL HEMOGLOBIN CONCENTR. 35.8 g/dL (32.4-36.7); MEAN CELL VOLUME 90.3 fL (81.5-99.8); MEAN PLATELET VOLUME 8.5 fL (8.7-11.7); PLATELET CLUMPS FLAG 0 (0-99); PLATELET COUNT 405 10^3/uL (150-400); RED CELL DISTRIBUTION WIDTH 12.6 % (11.5-15.2)
[2016-08-20 05:06] LABS: ATYPICAL LYMPHOCYTE FLAG 120 (0-99)
[2016-08-20 05:30] LABS: ANION GAP 8 mEq/L (8-16); CALCIUM 7.7 mg/dL (8.5-10.4); CARBON DIOXIDE 23 mEq/l (22-31); CHLORIDE 102 mEq/L (97-110); CREATININE 0.8 mg/dL (0.7-1.3); GLOMERULAR FILTRATION RATE > 60; GLUCOSE 86 mg/dL (70-100); SODIUM 133 mEq/L (134-144)
[2016-08-20 06:02] LABS: SCAN NEGATIVE
[2016-08-20] MEDS: SENNOSIDES/DOCUSATE SODIUM TAB PO SCH ×2 (08:44→21:18)
[2016-08-20] MEDS: ERTAPENEM 1 GM in NS 100 ML IV SCH (08:44)
[2016-08-20] MEDS: FAMOTIDINE 20 MG TAB PO SCH (08:44)
[2016-08-20] MEDS: NS 1,000 ML IV SCH ×2 (10:05→17:40)
[2016-08-20] MEDS ORDERED: LIDOCAINE 2% JELLY 5 ML TUBE ONE (11:46)
[2016-08-20] MEDS: morphINE PCA 30 MG/30 ML PCA IV PRN (11:48)
--- NOTE | 2016-08-20 12:21 | SOAPPROG ---
SOAP Progress Note Assessment/Plan: Assessment/Plan: 66 Y M s/p colostomy takedown with subsequent anastomotic leak , now with diverting colostomy and washout. Continue IV abx for peritonitis/anastomotic leak. Bernal is out. Pain control with Morphine DENTAL LAB TECHNICIAN. Not as effective as dilaudid, but this is patient's preference due to sever itching with dilaudid. No ostomy output. Continue clears only. Vac change today. S: afebrile. sore. O: alert, nontoxic but tired appearing no jaundice, mmm ctab rrr abd soft, rare BS, wound with vac to suction. drains scant serosanguinous 08/20/16 12:16 Objective: Vital Signs Temp Pulse Resp BP Pulse Ox 37.1 C 90 16 134/75 H 96 08/20/16 07:09 08/20/16 10:00 08/20/16 10:00 08/20/16 10:00 08/20/16 10:00 Laboratory Results 08/20/16 04:41 08/20/16 04:41 08/19/16 08/20/16 08/21/16 05:59 05:59 05:59 Intake Total 74412 2627 1920 Output Total 3625 4035 895 Balance 9742 -1408 1025 ICD10 Worksheet Patient Problems: Problems Problem Status Onset Anastomotic leak of intestine Acute Complication of colostomy Acute Diverticulitis large intestine Acute
--- NOTE | 2016-08-20 18:41 | WOCRNPDOC ---
[facility] Advanced Assessment Note - Skin Integrity Problem, Advanced Assess Midline Abdomen Surgical Wound/Incision Dressing Type: Black Vac Foam, Wound Vac Dressing Description: Clean/Dry, Intact Exudate Amount: Excessive Exudate Color: Reddish/Yellow Exudate Characteristic(s): Cloudy, Sanguinopurulent Integumentary Issue Intervention: Dressing Changed Susan Wound Tissue: Erythema (mild, at margin) Susan Wound Swelling: Mild Wound Bed Color: Red Wound Bed Constitution: Granulation Tissue, Subcutaneous Fat (minimally present) Wound Edges: Well Defined Site Odor: None (contained by VAC canister) Site Measurement - Head-to-Toe Length X Width X Depth (cm): 21 x 6 x 4 Skin Integrity Problem Comment: VAC dressing change per request to Dr. Matias via JULIA Carmona. 400cc sanguinopurulent drainage in original canister placed in OR: New canister placed in conjunction with dressing change. Education about tx provided verbally/discussion w/Patient and prior to and during care. Patient verbalized anxiety and pain during care, necesitating very slow, careful removal of original dressing drape and foam. RANDEE Francis in room providing additional assistance with pain medication during care. RANDEE Marcum ( float) assisted, clipped abd hair to reduce pulling during dressing removal, in addition to use of adhesive remover and subsequent application of skin prep. Communicated with JULIA Gutierrez proactively for 08/22 dressing change. Resumed tx at standard 125mm Hg neg pressure, continuous settings. - Colostomy Assessment, Advanced Left Abdomen Colostomy Stoma Colostomy Appliance Intact: Yes Colostomy Appliance Currently in Use: 2 07/14, Moldable Stoma Color: Red Stoma Turgor: Moist, Shiny Stoma Shape: Oval Stoma Height: Protruding Slightly Mucocutaneus Junction: Intact Colostomy Effluent: Serosangenous, Thin Colostomy Size - Head-to-Toe Length X Width X Depth (cm): 2.5 x 4.0 x 0.6 protuding profile Colostomy Details: End Peristomal Skin: Intact, Erythematic (mildly) Peristomal Skin Complications: Irritant Contact Dermatitis (mild: Applied skin prep for additional protection.) Colostomy Comment/Treatment Details: VAC drape was placed underneath skin barrier wafer. Removal of drape necessitated replacement of colostomy appliance. Modified medial margin of skin barrier tape to provide for separation between new VAC dressing and new appliance. Patient and verbalize confidence with pouching procedure at home and access to supplies, established following original surgery 4 months ago.
[2016-08-20] MEDS: traZODone 100 MG TAB PO PRN (21:18)
[2016-08-21] MEDS: NS 1,000 ML IV SCH (02:00)
[2016-08-21] MEDS: FAMOTIDINE 20 MG TAB PO SCH (07:56)
[2016-08-21] MEDS: ERTAPENEM 1 GM in NS 100 ML IV SCH (07:56)
[2016-08-21] MEDS ORDERED: HYDROmorphONE/DILAUDID 1 MG/ML SYR IVP ONE (10:27)
[2016-08-21] MEDS ORDERED: LORazepam 0.5 MG TAB PO PRN (10:27)
[2016-08-21] MEDS ORDERED: LIDOCAINE HCL 4% TOPICAL SOLN 50ML MM ONE (10:29)
[2016-08-21] MEDS ORDERED: LORazepam 2 MG/ML INJ IVP ONE ×2 (10:29→13:30)
[2016-08-21] MEDS: SENNOSIDES/DOCUSATE SODIUM TAB PO SCH ×2 (10:45→19:53)
--- NOTE | 2016-08-21 10:45 | SOAPPROG ---
SOAP Progress Note Assessment/Plan: Assessment/Plan: 66 Y M s/p colostomy takedown with subsequent anastomotic leak , now with diverting colostomy and washout. Continue IV abx for peritonitis/anastomotic leak. Ileus resolved. Regular diet. Buff cap IV. Transition to PO pain meds. Vac change tomorrow. Was difficult yesterday. He is anxious about tomorrow. Ativan, dilaudid, and viscous lidocaine ordered. Dispo: Might go home with vac after vac change on Saturday if wound not looking good enough for delayed closure. S: afebrile. +ostomy output. No n/v. vac change was painful yesterday. O: alert, nontoxic but tired appearing no jaundice, mmm ctab rrr abd soft, rare BS, wound with vac to suction. drains scant serosanguinous, soft brown stool in bag 08/21/16 10:42 Objective: Vital Signs Temp Pulse Resp BP Pulse Ox 36.8 C 92 16 140/78 H 96 08/21/16 10:00 08/21/16 10:00 08/21/16 10:00 08/21/16 10:00 08/21/16 10:00 Laboratory Results 08/20/16 04:41 08/20/16 04:41 08/20/16 08/21/16 08/22/16 05:59 05:59 05:59 Intake Total 2627 4197 1060 Output Total 4035 4035 270 Balance -1408 162 790 ICD10 Worksheet Patient Problems: Problems Problem Status Onset Anastomotic leak of intestine Acute Complication of colostomy Acute Diverticulitis large intestine Acute
[2016-08-21] MEDS: morphINE PCA 30 MG/30 ML PCA IV PRN (11:35)
--- NOTE | 2016-08-21 19:00 | SOAPPROG ---
SOAP Progress Note Assessment/Plan: Assessment: POSTOP DOING WELL WITH ADEQUATE URINE OUTPUT AND MINIMAL MIREYA DRAINAGE WOUND OKAY / AFEBRILE / OSTOMY 0 K Plan: JACQUE PERKINS AND A.MJames 08/16/16 20:26 08/21/16 18:59 AFEBRILE / EATING WELL/ OSTOMY OKAY WITH GOOD OUTPUT / HOME 1-2 DAYS Objective: Vital Signs Temp Pulse Resp BP Pulse Ox 36.6 C 99 16 155/88 H 96 08/21/16 18:00 08/21/16 18:00 08/21/16 18:00 08/21/16 18:00 08/21/16 18:00 Laboratory Results 08/20/16 04:41 08/20/16 04:41 08/20/16 08/21/16 08/22/16 05:59 05:59 05:59 Intake Total 2627 4197 1420 Output Total 4035 4035 2030 Balance -1408 162 -610 ICD10 Worksheet Patient Problems: Problems Problem Status Onset Anastomotic leak of intestine Acute Complication of colostomy Acute Diverticulitis large intestine Acute
[2016-08-21] MEDS: traZODone 100 MG TAB PO PRN (20:47)
[2016-08-22] MEDS: ERTAPENEM 1 GM in NS 100 ML IV SCH (08:00)
[2016-08-22] MEDS: FAMOTIDINE 20 MG TAB PO SCH (08:00)
[2016-08-22] MEDS: SENNOSIDES/DOCUSATE SODIUM TAB PO SCH ×2 (08:25→21:45)
--- NOTE | 2016-08-22 11:05 | SOAPPROG ---
SOAP Progress Note Assessment/Plan: Assessment/Plan: 66 Y M s/p colostomy takedown with subsequent anastomotic leak , now with diverting colostomy and washout. Continue IV abx for peritonitis/anastomotic leak. Ileus resolved. Regular diet. Buff cap IV. Transition to PO pain meds. Vac change today. Ativan, dilaudid, and viscous lidocaine ordered. Dispo: Pending appearance of wound at vac change today. Outpatient vac arrangements made if needed. S: afebrile. +ostomy output. No n/v. O: alert, nad no jaundice, mmm ctab rrr abd soft, rare BS, wound with vac to suction. drains serosanguinous with debri, soft brown stool in bag 08/22/16 11:04 Objective: Vital Signs Temp Pulse Resp BP Pulse Ox 36.7 C 92 16 138/74 H 94 08/22/16 10:00 08/22/16 10:00 08/22/16 10:00 08/22/16 10:00 08/22/16 10:00 Laboratory Results 08/20/16 04:41 08/20/16 04:41 08/21/16 08/22/16 08/23/16 05:59 05:59 05:59 Intake Total 4197 1920 Output Total 4035 3430 5 Balance 162 1510 -2024 ICD10 Worksheet Patient Problems: Problems Problem Status Onset Anastomotic leak of intestine Acute Complication of colostomy Acute Diverticulitis large intestine Acute
[2016-08-22] MEDS ORDERED: LORazepam 2 MG/ML INJ IVP ONE (12:00)
[2016-08-22] MEDS ORDERED: LIDOCAINE HCL 4% TOPICAL SOLN 50ML MM ONE (12:00)
[2016-08-22] MEDS ORDERED: HYDROmorphONE/DILAUDID 1 MG/ML SYR IVP ONE (13:30)
--- NOTE | 2016-08-22 13:57 | WOCRNPDOC ---
GUERRERO Advanced Assessment Note - Skin Integrity Problem, Advanced Assess Midline Abdomen Surgical Wound/Incision Dressing Type: Black Vac Foam, Wound Vac Dressing Description: Clean/Dry, Intact Exudate Amount: Minimal Exudate Characteristic(s): Serosanguinous Integumentary Issue Intervention: Dressing Changed Fariha Wound Swelling: Mild Wound Bed Constitution: Granulation Tissue (90%), Loose Slough (10%) Wound Edges: Attached Skin Integrity Problem Comment: Flushed with ns. Hair fariha wound clipped with clippers. Drape and skin prep applied fariha wound. x4 pieces of medium black foam used to fill wound bed. Vac restarted at -125 mm Hg continuous suction without leaks. Patient reported less pain than previous change with 25 ml of lidocain pre-treatment into vac foam. Student Arielle in room for care. Will round again Saturday. - Colostomy Assessment, Advanced Left Abdomen Colostomy Stoma Colostomy Appliance Intact: Yes Colostomy Appliance Currently in Use: Two Piece Flat, 2 3/4, Moldable Stoma Color: Red Stoma Turgor: Moist Stoma Shape: Oval Stoma Height: Protruding Mucocutaneus Junction: Intact Colostomy Effluent: Fecal Colostomy Size - Head-to-Toe Length X Width X Depth (cm): 2 3/4 Peristomal Skin: Intact
[2016-08-22] MEDS: morphINE PCA 30 MG/30 ML PCA IV PRN (21:41)
[2016-08-22] MEDS: traZODone 100 MG TAB PO PRN (21:45)
[2016-08-23] MEDS: NS 1,000 ML IV SCH (06:25)
[2016-08-23] MEDS: SENNOSIDES/DOCUSATE SODIUM TAB PO SCH ×2 (08:37→21:34)
[2016-08-23] MEDS: ERTAPENEM 1 GM in NS 100 ML IV SCH (08:37)
[2016-08-23] MEDS: FAMOTIDINE 20 MG TAB PO SCH (08:37)
--- NOTE | 2016-08-23 09:40 | SOAPPROG ---
SOAP Progress Note Assessment/Plan: Assessment: 66 Y M s/p colostomy takedown with subsequent anastomotic leak, now with diverting colostomy and washout. S: Comfortable in bed reading. Eating well. Gen: awake, alert, nad HEENT: mmm, nonicteric sclera Chest: ctab anteriorly, no wob; wearing NC at 2 L COR: rrr, no murmurs Abd: soft, non-distended; minimal soft brown stool in ostomy, wv with serosang output Plan: Continue regular diet. PO pain meds. Possible abd wound closure in the OR for tomorrow pending wound check in the AM. 08/23/16 09:41 08/23/16 12:35 Objective: Vital Signs Temp Pulse Resp BP Pulse Ox 36.6 C 98 18 126/72 H 95 08/23/16 07:39 08/23/16 07:39 08/23/16 07:39 08/23/16 07:39 08/23/16 07:39 Laboratory Results 08/20/16 04:41 08/20/16 04:41 08/22/16 08/23/16 08/24/16 05:59 05:59 05:59 Intake Total 1920 2500 420 Output Total 3430 4083 300 Balance -1510 1588 120 ICD10 Worksheet Patient Problems: Problems Problem Status Onset Anastomotic leak of intestine Acute Complication of colostomy Acute Diverticulitis large intestine Acute
[2016-08-23] MEDS: OXYCODONE/APAP 5/325 TAB PO PRN ×2 (12:42→16:50)
[2016-08-23] MEDS: diphenhydrAMINE 25 MG CAP PO PRN ×2 (12:42→18:26)
--- NOTE | 2016-08-23 12:44 | SOAPPROG ---
SOAP Progress Note Assessment/Plan: Assessment: 66 Y M s/p colostomy takedown with subsequent anastomotic leak, now with diverting colostomy and washout. S: Comfortable in bed reading. Eating well. Gen: awake, alert, nad HEENT: mmm, nonicteric sclera Chest: ctab anteriorly, no wob; wearing NC at 2 L COR: rrr, no murmurs Abd: soft, non-distended; minimal soft brown stool in ostomy, wv with serosang output Plan: Continue regular diet. PO pain meds. Possible abd wound closure in the OR for tomorrow pending wound check in the AM. 08/23/16 09:41 08/23/16 12:35 08/23/16 12:44 WOUND OKAY AFEBRILE/ OSTOMY OKAY/ POSITIVE BM/ PLAN IS THE WOUND CLOSURE IN THE A.M. Objective: Vital Signs Temp Pulse Resp BP Pulse Ox 36.7 C 88 16 105/65 97 08/23/16 11:31 08/23/16 11:31 08/23/16 11:31 08/23/16 11:31 08/23/16 11:31 Laboratory Results 08/20/16 04:41 08/20/16 04:41 08/22/16 08/23/16 08/24/16 05:59 05:59 05:59 Intake Total 1920 2500 420 Output Total 5800 4085 520 Balance -1510 -1585 -100 ICD10 Worksheet Patient Problems: Problems Problem Status Onset Anastomotic leak of intestine Acute Complication of colostomy Acute Diverticulitis large intestine Acute
[2016-08-23] MEDS: traZODone 100 MG TAB PO PRN (21:35)
[2016-08-24] MEDS: OXYCODONE/APAP 5/325 TAB PO PRN ×4 (01:16→21:12)
[2016-08-24] MEDS: diphenhydrAMINE 25 MG CAP PO PRN (01:19)
[2016-08-24] MEDS ORDERED: HYDROmorphONE/DILAUDID 1 MG/ML SYR ONE (07:41)
[2016-08-24] MEDS ORDERED: HYDROmorphONE/DILAUDID 1 MG/ML SYR IVP PRN (07:43)
[2016-08-24] MEDS ORDERED: HYDROmorphONE/DILAUDID 1 MG/ML SYR IVP ONE (08:00)
[2016-08-24] MEDS: ERTAPENEM 1 GM in NS 100 ML IV SCH (09:50)
[2016-08-24] MEDS: FAMOTIDINE 20 MG TAB PO SCH (09:50)
[2016-08-24] MEDS: SENNOSIDES/DOCUSATE SODIUM TAB PO SCH ×2 (09:50→21:12)
--- NOTE | 2016-08-24 10:26 | SOAPPROG ---
SOAP Progress Note Assessment/Plan: Assessment: 66 Y M s/p colostomy takedown with subsequent anastomotic leak, now with diverting colostomy and washout. S: Comfortable in bed reading. Eating well. Gen: awake, alert, nad HEENT: mmm, nonicteric sclera Chest: ctab anteriorly, no wob; wearing NC at 2 L COR: rrr, no murmurs Abd: soft, non-distended; minimal soft brown stool in ostomy, wv with serosang output Plan: Continue regular diet. PO pain meds. Possible abd wound closure in the OR for tomorrow pending wound check in the AM. 08/23/16 09:41 08/23/16 12:35 08/23/16 12:44 WOUND OKAY AFEBRILE/ OSTOMY OKAY/ POSITIVE BM/ PLAN IS THE WOUND CLOSURE IN THE A.M. 08/24/16 10:25 afebrile/ wound vac removed/ wound clean and grnulating well/ risks and options fully discussed/ will proceed with DPC Objective: Vital Signs Temp Pulse Resp BP Pulse Ox 36.8 C 89 16 127/79 H 93 08/24/16 07:56 08/24/16 07:56 08/24/16 07:56 08/24/16 07:56 08/24/16 07:56 Laboratory Results 08/20/16 04:41 08/20/16 04:41 08/23/16 08/24/16 08/25/16 05:59 05:59 05:59 Intake Total 2500 1660 Output Total 6195 2770 450 Balance -1585 -1110 -450 ICD10 Worksheet Patient Problems: Problems Problem Status Onset Anastomotic leak of intestine Acute Complication of colostomy Acute Diverticulitis large intestine Acute
[2016-08-24] MEDS ORDERED: BUPIVACAINE 0.5% 30 ML SDV ONE (11:54)
[2016-08-24] MEDS ORDERED: fentaNYL 250 MCG/5 ML INJ ONE (12:24)
[2016-08-24] MEDS ORDERED: PROPOFOL/EMULSION 500 MG/50 ML BOTTLE IV ONE (12:24)
[2016-08-24] MEDS ORDERED: MIDAZOLAM 2 MG/2 ML VIAL ONE (12:54)
[2016-08-24] MEDS ORDERED: CALCIUM CHLORIDE 1 GM/10 ML INJ ONE (13:21)
[2016-08-24] MEDS ORDERED: ONDANSETRON 4 MG/2 ML VIAL ONE (13:21)
[2016-08-24] MEDS ORDERED: ROCURONIUM 50 MG/5 ML VIAL ONE (13:21)
[2016-08-24] MEDS ORDERED: SUGAMMADEX SODIUM 200 MG/2 ML VIAL IVP ONE (13:21)
--- NOTE | 2016-08-24 13:59 | POSTOPPROG ---
Post Op Note Date of Operation: 08/24/16 Surgeon: Lj Matias Thermite Welder: SONDRA Peterson MS, Jennifer Mora MS Anesthesiologist: Meka Vargas MD Anesthesia: GET(General Endotracheal) Pre-op Diagnosis: Abdominal wound Post-op Diagnosis: same Procedure: Delayed primary abdominal wound closure Findings: Well-granulating wound Inf/Abcess present in the surg proc area at time of surgery?: Yes Depth: Superfical (Skin SQ) EBL: Minimal Complications: none Drains: Darron Rico Specimen(s): none
[2016-08-24] MEDS ORDERED: fentaNYL 100 MCG/2 ML INJ ONE (14:15)
[2016-08-24] MEDS ORDERED: OXYCODONE/APAP 5/325 TAB ONE (14:17)
--- NOTE | 2016-08-24 14:43 | GOP ---
[f rep st] OPERATIVE REPORT DATE OF OPERATION: 08/24/2016 SURGEON: Lj Matias MD ANESTHESIOLOGIST: Meka Vargas MD PREOPERATIVE DIAGNOSIS: Open abdominal wound. POSTOPERATIVE DIAGNOSIS: Open abdominal wound. PROCEDURE PERFORMED: Delayed primary wound closure. FINDINGS: DESCRIPTION OF PROCEDURE: Patient was taken to the operating room where he received satisfactory ge neral endotracheal anesthesia by Dr. Vargas. He was placed in supine position and prepped and drape d in usual sterile fashion. The wound was debrided. There was excellent granulation tissue through out. The skin edges were elevated up with electrocautery, and a 15 round MIREYA drain was brought out t hrough separate stab incision and placed in the base of the wound. The wound was infiltrated with 0 .5% Marcaine, and the wound was then closed with interrupted 2-0 Vicryl sutures. Skin was then adva nced and closed with skin aaliyah and interrupted 3-0 Prolene sutures. The drain was secured to the skin with a silk suture. He tolerated the procedure well. He was taken to the recovery room in go od condition. There were no complications. /[id number]/MODL
[2016-08-24] MEDS: traZODone 100 MG TAB PO PRN (21:12)
[2016-08-25] MEDS: OXYCODONE/APAP 5/325 TAB PO PRN ×4 (01:09→12:21)
[2016-08-25 05:26] VITALS: RESP 16
[2016-08-25] MEDS: FAMOTIDINE 20 MG TAB PO SCH (08:53)
[2016-08-25] MEDS: ERTAPENEM 1 GM in NS 100 ML IV SCH (08:53)
[2016-08-25] MEDS: SENNOSIDES/DOCUSATE SODIUM TAB PO SCH (08:53)
[2016-08-25 09:08] VITALS: BP 105/80; PULSE 111; TEMP 99.8; O2SAT 94
--- NOTE | 2016-08-25 10:27 | SOAPPROG ---
SOAP Progress Note Assessment/Plan: Assessment: s/p ostomy and wound closure for anastomotic breakdown pain controlled with percocet can dc home f/u office in 5 days for drain removal S: Feeling well, good return of bowel function O: Sitting in chair BS present Ostomy pink incision cdi ctab rrr Plan: 08/25/16 10:22 Objective: Vital Signs Temp Pulse Resp BP Pulse Ox 37.7 C 111 H 16 105/80 94 08/25/16 08:00 08/25/16 08:00 08/25/16 08:00 08/25/16 08:00 08/25/16 08:00 Laboratory Results 08/20/16 04:41 08/20/16 04:41 08/24/16 08/25/16 08/26/16 05:59 05:59 05:59 Intake Total 1660 750 Output Total 5340 1310 Balance -1110 -560 ICD10 Worksheet Patient Problems: Problems Problem Status Onset Anastomotic leak of intestine Acute Complication of colostomy Acute Diverticulitis large intestine Acute
--- NOTE | 2016-08-29 11:53 | GDS ---
[f rep st] DISCHARGE SUMMARY DISCHARGE DIAGNOSES: 1. Anastomotic breakdown with peritonitis. 2. Recent colostomy takedown. 3. History of diverting colostomy and sigmoid colectomy for acute diverticulitis. OTHER DIAGNOSES: 1. History of methicillin-resistant Staphylococcus aureus in 2013. 2. Celiac disease. 3. Lumbar spine surgery. 4. Left pelvic fracture. 5. Left elbow surgery. PROCEDURES: 1. Laparotomy and colostomy, with washout and wound VAC placement. 2. Delayed wound closure. HOSPITAL COURSE: The patient is a 66-year-old male with a history of a diverting colostomy and sigm oid colectomy for acute diverticulitis, who underwent a recent colostomy takedown. His postoperativ e course from that surgery was uneventful, and he was discharged to home in stable condition. He re turned to the emergency department with complaints of abdominal pain and feculent drainage from his wounds. He was brought to the operating room and underwent a laparotomy with washout of abdomen and a diverting colostomy. He was, in fact, found to have peritonitis and an anastomotic breakdown. T his procedure was uncomplicated and he tolerated well. He was left with an open wound, and a wound VAC was placed intraoperatively. The patient's postoperative course was relatively uneventful. He did have a difficult time with his first wound VAC change. He was premedicated with Ativan and Dilaudid for his second wound VAC kraft , which he tolerated well. His wound was granulating very well, and it was decided to take him ba ck to the operating room for delayed closure. This procedure was also uncomplicated and he tolerate d it well. DISCHARGE INSTRUCTIONS: Patient was discharged to home in stable condition, with plans for outpatie nt followup. He was discharged with his drain in place. Limitations were discussed prior to him go ing home. He is familiar with colostomy care. Please see medicine reconciliation for accurate disc harge medications . /[id number]/MODL
--- NOTE | 2016-09-22 12:52 | GOP ---
[f rep st] OPERATIVE REPORT DATE OF OPERATION: 08/16/2016 SURGEON: Lj Matias MD ON AIR PERSONALITY: Hitesh Torres MD. ANESTHESIOLOGIST: Shay Soliman MD. PREOPERATIVE DIAGNOSIS: Perforated colon. POSTOPERATIVE DIAGNOSIS: Perforated colon and anastomotic breakdown. PROCEDURE PERFORMED: Laparotomy with end colostomy and wound VAC placement, drainage of abscess, an d wound debridement. FINDINGS: The patient was found to have gross fecal contamination in the subcutaneous and subfascia l level of the pelvis. There was no gross intraabdominal contamination. The area was well walled o ff by the omentum, but it appeared to be the result of disruption of the anterolateral aspect to the suture line. INDICATIONS: The patient was developing localized peritonitis. DESCRIPTION OF PROCEDURE: The patient was taken to the operating room where he received satisfactor y general endotracheal anesthesia by Dr. Soliman. He was placed in a supine position, prepped and matt ped in the usual sterile fashion. A midline abdominal incision was opened and carried down to the s ubcutaneous tissue where contaminated fluid was encountered. The fascia was opened, the abdomen was entered, and a large amount of fecal contamination was encountered. This was suctioned clear and i rrigated clear until it completely resolved. Dissection extended down into the abdomen. The pelvis was walled off by the omentum down to the previous anastomosis. This appeared to have dehisced on the anterolateral side. This was all suctioned clear. The omentum was freed up and freed away. A portion of the omentum was resected for debridement's sake. The proximal colon was cross clamped wi th an atraumatic bowel clamp. Because of the gross contamination, it was not elected to try to repa ir this and the remaining portion of the anastomosis was opened and the bowel was retracted away for formation of a colostomy. A rectal stump was then oversewn with a running 3-0 Prolene suture. Bot h ends of the bowel appeared to have adequate blood supply and there was no obvious tension on the i ncision. The reason for the dehiscence is unclear. The majority of the suture line was intact. It had a single-layer interrupted suture anastomosis. Previous old colostomy site was opened back up, extended through the rectus sheath and the fascia. A 2 fingerbreadth opening was created. The pro ximal colon was brought up through this area and secured to the peritoneum with 3-0 Vicryl sutures a nd secured at the fascia with 3-0 Vicryl sutures. The abdominal wound was then heavily irrigated. The subcutaneous tissue was sharply debrided back to good clean tissue. A 15 round silicone MIREYA drai n was brought out through a separate stab incision and placed in the pelvis. The fascia was closed with a running #1 PDS suture. The wound was then packed open. /[id number]/MODL
== END 2016-08-25 12:33 | disposition home health service (06) | DRG 330 ==
LOC: EDUNIT# → FSGY 10:46 → F3E 16:33
PROVIDERS: ADMIT Surgery; ATTEND Surgery
PROC: 0D1K0Z4 Bypass Ascending Colon to Cutaneous, Open Approach (ICD-10-PCS; principal; 2016-08-16 14:15)
PROC: 0HQ7XZZ Repair Abdomen Skin, External Approach (ICD-10-PCS; 2016-08-24)
DX: K91.89 Other postprocedural complications and disorders of digestive system (principal); K57.20 Diverticulitis of large intestine with perforation and abscess without bleeding; Z86.14 Personal history of Methicillin resistant Staphylococcus aureus infection; Z87.891 Personal history of nicotine dependence
CPT/HCPCS: 96374; J1100; J1170; J1200; J1335; J2001; J2060; J2250; J2270; J2405; J2704; J3010

== ENCOUNTER 2016-09-06 02:35 | Inpatient (IN) | payer BC, OTHER ==
--- NOTE | 2016-09-06 02:58 | EDPHY ---
H & P Stated Complaint: Abdomial pain X 3 days post surgery Time Seen by Provider: 09/06/16 02:42 HPI/ROS: Chief complaint: Abdominal pain and wound discharged HPI: 66-year-old male had a complicated course after in ostomy placement for a complicated diverticulitis in March. Patient had a takedown of his ostomy August 07 but then developed a ostomy week. He is back in the hospital beginning of this month had a wound VAC placed and discharged home on the . He is having increasing bulging and pain at the lower aspect of his incision for the last 2 days. This morning he got up and noticed some drainage from the site. His pain is about a 5/10. No fevers or chills. No nausea or vomiting. Has had normal ostomy output. No urinary symptoms. ROS: 10 point Review of Systems is negative except as noted in the HPI. PMH: Diverticulitis status post ileostomy Medications: Naproxen trazodone Allergies: Codeine and gluten Social History: No smoking, occasional alcohol, occasional at able marijuana Family History: non-contributory Physical Exam: Gen: Awake, Alert, No Distress HEENT: Nose: no rhinorrhea Eyes: PERRLA, EOMI Mouth: Moist mucosa Neck: Supple, no JVD Chest: nontender, lungs clear to auscultation Heart: S1, S2 normal, no murmur Abd: Soft, has a stapled laparotomy scar with moderate crusting and some discharged in the inferior aspect. There is no surrounding erythema. It is tender to touch on the inferior aspect. Mild guarding around the incision. Back: no CVA tenderness, no midline tenderness Ext: no edema, non-tender Skin: no rash Neuro: CN II-XII intact, Sensation grossly intact, Strength 5/5 in bilateral upper and lower extremities - Personal History Current Tetanus/Diphtheria Vaccine: Yes Current Tetanus Diphtheria and Acellular Pertussis (TDAP): Yes Tetanus Vaccine Date: < 10 YRS - Medical/Surgical History Hx Asthma: No Hx Chronic Respiratory Disease: No Hx Diabetes: No Hx Cardiac Disease: No Hx Renal Disease: No Hx Cirrhosis: No Hx Alcoholism: No Hx HIV/AIDS: No Hx Splenectomy or Spleen Trauma: No Other PMH: pmh: MRSA IN LEG(OPEN WOUND)2013, CELIAC, diverticulitis. psh: Colostomy reversal, Colostomy for diverticulitis, BACK [id number], LEFT PELVIS FX, L ORIF elbow, - Social History Smoking Status: Former smoker Constitutional: Initial Vital Signs Temperature (C) 36.5 C 09/06/16 02:36 Heart Rate 103 H 09/06/16 02:36 Respiratory Rate 16 09/06/16 02:36 Blood Pressure 121/72 H 09/06/16 02:36 O2 Sat (%) 98 09/06/16 02:36 O2 Delivery Mode Room Air Allergies/Adverse Reactions: gluten Allergy (Severe, Verified 09/06/16 02:45) Other-Enter Comments codeine Allergy (Verified 09/06/16 02:45) Rash Home Medications: Medication Instructions Recorded traZODone [traZODONE 100MG (*)] 100 mg PO HS PRN 03/27/16 Naproxen Sodium [Aleve 220 MG (*)] 220 - 440 mg PO DAILY PRN 08/02/16 Medical Decision Making - Diagnostics Imaging Results: CT scan shows an abscess measuring 3.5 cm which is deep to the rectus and communicating through to the incision. There is also a small collection subcutaneous air in the upper abdomen which is not contiguous. Imaging: Discussed imaging studies w/ call center analyst Radiologist ED Course/Re-evaluation: Patient with an abscess of his surgery site. I have discussed with Dr. Kwadwo Matias, patient's surgeon. Will admit to his service for further care and planned drainage. Patient's pain is improved after IV pain medications. Will give him IV fluids. He will remain NPO. Patient is not septic or toxic in appearance at this time. - Data Points Laboratory Results: Laboratory Results 09/06/16 02:40 09/06/16 02:40 09/06/16 09/06/16 02:40 02:40 WBC 12.59 10^3/uL H 10^3/uL (3.80-9.50) RBC 3.93 10^6/uL L 10^6/uL (4.40-6.38) Hgb 12.2 g/dL L g/dL (13.7-17.5) Hct 36.2 % L % (40.0-51.0) MCV 92.1 fL fL (81.5-99.8) MCH 31.0 pg pg (27.9-34.1) MCHC 33.7 g/dL g/dL (32.4-36.7) RDW 13.8 % % (11.5-15.2) Plt Count 362 10^3/uL 10^3/uL (150-400) MPV 9.3 fL fL (8.7-11.7) Neut % (Auto) 78.3 % H % (39.3-74.2) Lymph % (Auto) 14.4 % L % (15.0-45.0) [place] % (Auto) 6.0 % % (4.5-13.0) Eos % (Auto) 0.5 % L % (0.6-7.6) Baso % (Auto) 0.2 % L % (0.3-1.7) Nucleat RBC Rel Count 0.0 % % (0.0-0.2) Absolute Neuts (auto) 9.87 10^3/uL H 10^3/uL (1.70-6.50) Absolute Lymphs (auto) 1.81 10^3/uL 10^3/uL (1.00-3.00) Absolute Monos (auto) 0.75 10^3/uL 10^3/uL (0.30-0.80) Absolute Eos (auto) 0.06 10^3/uL 10^3/uL (0.03-0.40) Absolute Basos (auto) 0.03 10^3/uL 10^3/uL (0.02-0.10) Absolute Nucleated RBC 0.00 10^3/uL 10^3/uL (0-0.01) Immature Gran % 0.6 % % (0.0-1.1) Immature Gran # 0.07 10^3/uL 10^3/uL (0.00-0.10) Sodium 139 mEq/L mEq/L (134-144) Potassium 4.3 mEq/L mEq/L (3.5-5.2) Chloride 104 mEq/L mEq/L (97-110) Carbon Dioxide 22 mEq/l mEq/l (22-31) Anion Gap 13 mEq/L mEq/L (8-16) BUN 17 mg/dL mg/dL (7-23) Creatinine 1.1 mg/dL mg/dL (0.7-1.3) Estimated GFR > 60 Glucose 121 mg/dL H mg/dL (70-100) Calcium 9.0 mg/dL mg/dL (8.5-10.4) Total Bilirubin 0.8 mg/dL mg/dL (0.1-1.4) Conjugated Bilirubin 0.5 mg/dL mg/dL (0.0-0.5) Unconjugated Bilirubin 0.3 mg/dL mg/dL (0.0-1.1) AST 24 IU/L IU/L (17-59) ALT 27 IU/L IU/L (21-72) Alkaline Phosphatase 131 IU/L H IU/L (38-126) Total Protein 7.3 g/dL g/dL (6.3-8.2) Albumin 3.4 g/dL L g/dL (3.5-5.0) Lipase 47.0 IU/L IU/L (23-300) Medications Given: Discontinued Medications Morphine Sulfate (Morphine) 4 mg IVP ONCE ONE Stop: 09/06/16 03:02 Last Admin: 09/06/16 03:08 Dose: 4 mg Departure - Departure Disposition: [facility] Inpatient Acute Clinical Impression: Incisional abscess Condition: Fair Referrals: Rupal Arriaga MD [Primary Care Provider] - As per Instructions
[2016-09-06 03:03] LABS: % IMMATURE GRANULYOCYTES 0.6 % (0.0-1.1); ABSOLUTE IMMATURE GRANULOCYTES 0.07 10^3/uL (0.00-0.10); ADD DIFF? NO; ADD MORPH? NO; ADD SCAN? NO; ATYPICAL LYMPHOCYTE FLAG 0 (0-99); FRAGMENT RBC FLAG 0 (0-99); HEMATOCRIT 36.2 % (40.0-51.0); HEMOGLOBIN 12.2 g/dL (13.7-17.5); LEFT SHIFT FLG 80 (0-99); LIPEMIA HEMOLYSIS FLAG 80 (0-99); MEAN CELL HEMOGLOBIN CONCENTR. 33.7 g/dL (32.4-36.7); MEAN CELL VOLUME 92.1 fL (81.5-99.8); MEAN PLATELET VOLUME 9.3 fL (8.7-11.7); PLATELET CLUMPS FLAG 0 (0-99); PLATELET COUNT 362 10^3/uL (150-400); RED BLOOD CELL COUNT 3.93 10^6/uL (4.40-6.38); RED CELL DISTRIBUTION WIDTH 13.8 % (11.5-15.2)
[2016-09-06 03:08] LABS: ALANINE AMINOTRANSFERASE 27 IU/L (21-72); ALBUMIN 3.4 g/dL (3.5-5.0); ALKALINE PHOSPHATASE 131 IU/L (38-126); ANION GAP 13 mEq/L (8-16); ASPARTATE AMINOTRANSFERASE 24 IU/L (17-59); BILIRUBIN,TOTAL 0.8 mg/dL (0.1-1.4); BILIRUBIN-CONJUGATED 0.5 mg/dL (0.0-0.5); BILIRUBIN-UNCONJUGATED 0.3 mg/dL (0.0-1.1); CARBON DIOXIDE 22 mEq/l (22-31); CHLORIDE 104 mEq/L (97-110); CREATININE 1.1 mg/dL (0.7-1.3); GLOMERULAR FILTRATION RATE > 60; GLUCOSE 121 mg/dL (70-100); POTASSIUM 4.3 mEq/L (3.5-5.2); SODIUM 139 mEq/L (134-144); TOTAL PROTEIN 7.3 g/dL (6.3-8.2)
[2016-09-06] MEDS ORDERED: IOPAMIDOL (ISOVUE-300) 100 ML BTL IV ONE (03:13)
[2016-09-06] MEDS: NS 1,000 ML IV SCH ×3 (04:01→17:17)
[2016-09-06] MEDS ORDERED: ONDANSETRON 4 MG/2 ML VIAL IVP ONE (04:03)
[2016-09-06] MEDS ORDERED: NALOXONE HCL 0.4 MG/ML INJ IVP PRN (05:10)
[2016-09-06] MEDS ORDERED: ONDANSETRON 4 MG/2 ML VIAL IVP PRN ×2 (05:10→10:12)
[2016-09-06] MEDS ORDERED: HYDROmorphONE/DILAUDID 6 MG/30 ML PCA IV ONE (05:18)
[2016-09-06] MEDS: HYDROmorphONE/DILAUDID 6 MG/30 ML PCA IV PRN ×2 (05:20→05:27)
[2016-09-06] MEDS ORDERED: ERTAPENEM 1 GM in NS 100 ML IV ONE (05:30)
[2016-09-06] MEDS: diphenhydrAMINE 25 MG CAP PO PRN ×2 (06:39→22:07)
[2016-09-06] MEDS: morphINE PCA 30 MG/30 ML PCA IV PRN ×2 (08:24→22:06)
[2016-09-06] MEDS ORDERED: HYDROCODONE/APAP 5/325 TAB PO PRN (10:12)
[2016-09-06] MEDS: CETIRIZINE 10 MG TAB PO SCH (10:30)
--- NOTE | 2016-09-06 11:52 | SOAPPROG ---
SOAP Progress Note Assessment/Plan: Assessment: 66yo male s/p recent laparotomy for leak after takedown, ostomy placement. Now with incisional abscess. Drainage started during night, pt came to ED. No fevers, pain over drainage site. PE pale, awake alert Chest CTA B/L Abdomen midline stapled incision with inferior portion draining pus. ostomy in place. Plan: opened incision/removed 3 aaliyah and copious amount of pus, used suction. Placed flaquito drain, sutured in place. will consider new imaging over next few days depending on drainage, overall clinical course. regular diet. seen and examined by Dr Matias 09/06/16 11:51 09/06/16 11:53 09/06/16 11:56 Objective: Vital Signs Temp Pulse Resp BP Pulse Ox 36.5 C 86 16 105/70 95 09/06/16 10:22 09/06/16 10:22 09/06/16 10:22 09/06/16 10:22 09/06/16 10:22 Microbiology 09/06/16 07:55 Gram Stain - Final Abdomen - Swab 09/05/16 09/06/16 09/07/16 05:59 05:59 05:59 Intake Total 100 Balance 100 ICD10 Worksheet Patient Problems: Problems Problem Status Onset Incisional abscess Acute Anastomotic leak of intestine Acute Complication of colostomy Acute Diverticulitis large intestine Acute
--- NOTE | 2016-09-06 19:43 | GOP ---
[f rep st] OPERATIVE REPORT DATE OF OPERATION: 09/06/2016 SURGEON: Lj Matias MD PREOPERATIVE DIAGNOSIS: Wound infection POSTOPERATIVE DIAGNOSIS: same PROCEDURE PERFORMED: I and D of wound infection FINDINGS: copious amount of purulent material in the subcutaneous area DESCRIPTION OF PROCEDURE: The patient appears with obvious wound infection. The aaliyah were removed. The wound was opened up. The cavity was entered. Much purulent material was washed away and suctioned out. No connection to below the fascia was easily identifiable. A 1/2-inch Briseida drain was placed in the incision and secured in place with Prolene suture. He tolerated the procedure well. There were no complications. The wound was dressed. /[id number]/MODL MTDD
[2016-09-06] MEDS ORDERED: MAGNESIUM HYDROXIDE 30 ML UDCUP PO PRN (21:41)
[2016-09-06] MEDS ORDERED: BISACODYL 10 MG SUPP PR PRN (21:41)
[2016-09-06] MEDS ORDERED: POLYETHYLENE GLYCOL 3350 17 GM PKT PO PRN (21:41)
[2016-09-06] MEDS ORDERED: LACTULOSE 20 GM/30 ML UDCUP PO PRN (21:41)
[2016-09-06] MEDS: traZODone 100 MG TAB PO SCH (22:06)
[2016-09-07] MEDS ORDERED: IOPAMIDOL (ISOVUE-300) 100 ML BTL IV ONE (09:00)
[2016-09-07] MEDS: diphenhydrAMINE 25 MG CAP PO PRN ×3 (09:30→21:42)
[2016-09-07] MEDS: morphINE PCA 30 MG/30 ML PCA IV PRN (10:27)
--- NOTE | 2016-09-07 10:40 | SOAPPROG ---
SOAP Progress Note Assessment/Plan: Assessment: 66yo male s/p recent laparotomy for leak after takedown, ostomy placement. Now with incisional abscess. Drainage persisted but decreased during night, tolerating regular diet, feels better overall. No fevers, pain over drainage site. PE awake alert Chest CTA B/L Abdomen midline stapled incision with inferior portion draining very small amount of serosag discharge, lfaquito in place. ostomy in place. Plan: will review CT findings with Dr Matias later today and return to explain results to patient. seen and examined by Dr Matias 09/06/16 11:51 09/06/16 11:53 09/06/16 11:56 09/07/16 10:39 Objective: Vital Signs Temp Pulse Resp BP Pulse Ox 36.9 C 85 18 97/60 L 97 09/07/16 08:00 09/07/16 08:00 09/07/16 08:00 09/07/16 08:00 09/07/16 08:00 Microbiology 09/06/16 07:55 Gram Stain - Final Abdomen - Swab 09/06/16 09/07/16 09/08/16 05:59 05:59 05:59 Intake Total 100 3653 Output Total 1650 Balance 100 2002 ICD10 Worksheet Patient Problems: Problems Problem Status Onset Incisional abscess Acute Anastomotic leak of intestine Acute Complication of colostomy Acute Diverticulitis large intestine Acute
[2016-09-07] MEDS: CETIRIZINE 10 MG TAB PO SCH ×2 (10:43→10:45)
[2016-09-07 10:56] LABS: % IMMATURE GRANULYOCYTES 0.6 % (0.0-1.1); ABSOLUTE IMMATURE GRANULOCYTES 0.04 10^3/uL (0.00-0.10); ADD DIFF? NO; ADD MORPH? NO; ADD SCAN? NO; ATYPICAL LYMPHOCYTE FLAG 0 (0-99); FRAGMENT RBC FLAG 0 (0-99); HEMATOCRIT 29.6 % (40.0-51.0); LEFT SHIFT FLG 10 (0-99); LIPEMIA HEMOLYSIS FLAG 90 (0-99); MEAN CELL HEMOGLOBIN 31.6 pg (27.9-34.1); MEAN CELL HEMOGLOBIN CONCENTR. 33.8 g/dL (32.4-36.7); MEAN CELL VOLUME 93.7 fL (81.5-99.8); MEAN PLATELET VOLUME 8.8 fL (8.7-11.7); PLATELET CLUMPS FLAG 0 (0-99); PLATELET COUNT 262 10^3/uL (150-400); RED BLOOD CELL COUNT 3.16 10^6/uL (4.40-6.38); RED CELL DISTRIBUTION WIDTH 14.1 % (11.5-15.2)
[2016-09-07] MEDS: ENOXAPARIN 80 MG/0.8 ML SYR SC SCH ×2 (15:06→21:25)
[2016-09-07] MEDS: WARFARIN SODIUM 5 MG TAB PO SCH (15:14)
[2016-09-07] MEDS: SENNOSIDES/DOCUSATE SODIUM TAB PO SCH ×2 (15:15→21:25)
[2016-09-07] MEDS: NS 1,000 ML IV SCH ×2 (15:18→21:43)
--- NOTE | 2016-09-07 16:39 | SOAPPROG ---
SOAP Progress Note Assessment/Plan: Assessment: afebrile /much decreased drainage / follow-up CT scan shows adequately drained abscess areas Plan: continue IV antibiotics 09/07/16 16:37 Objective: Vital Signs Temp Pulse Resp BP Pulse Ox 36.4 C 85 16 106/65 94 09/07/16 16:00 09/07/16 16:00 09/07/16 16:00 09/07/16 16:00 09/07/16 16:00 Microbiology 09/06/16 07:55 Gram Stain - Final Abdomen - Swab Laboratory Results 09/07/16 10:44 09/06/16 09/07/16 09/08/16 05:59 05:59 05:59 Intake Total 100 3653 Output Total 1650 300 Balance 100 2002 - ICD10 Worksheet Patient Problems: Problems Problem Status Onset Incisional abscess Acute Anastomotic leak of intestine Acute Complication of colostomy Acute Diverticulitis large intestine Acute
[2016-09-07] MEDS: traZODone 100 MG TAB PO SCH (21:26)
[2016-09-08] MEDS: KETOROLAC 15 MG/1 ML SDV IVP SCH ×5 (04:07→23:41)
[2016-09-08] MEDS: NS 1,000 ML IV SCH (08:52)
[2016-09-08] MEDS: ENOXAPARIN 80 MG/0.8 ML SYR SC SCH ×2 (09:18→21:29)
[2016-09-08] MEDS: SENNOSIDES/DOCUSATE SODIUM TAB PO SCH ×2 (09:19→21:30)
[2016-09-08] MEDS: CETIRIZINE 10 MG TAB PO SCH (09:20)
[2016-09-08] MEDS: ERTAPENEM 1 GM in NS 100 ML IV SCH (10:32)
[2016-09-08] MEDS ORDERED: KETOROLAC 15 MG/1 ML SDV IVP SCH (12:00)
--- NOTE | 2016-09-08 14:09 | SOAPPROG ---
SOAP Progress Note Assessment/Plan: Assessment: afebrile /much decreased drainage / follow-up CT scan shows adequately drained abscess areas Plan: continue IV antibiotics 09/07/16 16:37 09/08/16 14:08 AFEBRILE AND LOOKING BETTER/ STILL SOME WOUND DRAINAGE/ ENERGY LEVEL IMPROVING / PLAN IS TO CONTINUE IV ANTIBIOTICS POSSIBLY HOME AND 2 TO 3 DAYS ON ORAL ANTIBIOTICS Objective: Vital Signs Temp Pulse Resp BP Pulse Ox 37.1 C 81 18 121/76 H 94 09/08/16 12:00 09/08/16 12:00 09/08/16 12:00 09/08/16 12:00 09/08/16 12:00 Microbiology 09/06/16 07:55 Gram Stain - Final Abdomen - Swab Laboratory Results 09/07/16 10:44 09/07/16 09/08/16 09/09/16 05:59 05:59 05:59 Intake Total 6053 704 Output Total 0695 9184 Balance 2002 -1585 ICD10 Worksheet Patient Problems: Problems Problem Status Onset Incisional abscess Acute Anastomotic leak of intestine Acute Complication of colostomy Acute Diverticulitis large intestine Acute
[2016-09-08] MEDS: WARFARIN SODIUM 5 MG TAB PO SCH (16:41)
[2016-09-08] MEDS: traZODone 100 MG TAB PO SCH (21:29)
[2016-09-09 05:40] LABS: INR 1.29 (0.83-1.16); PROTIME(PATIENT) 16.1 SEC (12.0-15.0)
[2016-09-09] MEDS: KETOROLAC 15 MG/1 ML SDV IVP SCH ×4 (06:10→23:02)
[2016-09-09] MEDS: ERTAPENEM 1 GM in NS 100 ML IV SCH (09:53)
[2016-09-09] MEDS: SENNOSIDES/DOCUSATE SODIUM TAB PO SCH ×2 (09:53→20:06)
[2016-09-09] MEDS: ENOXAPARIN 80 MG/0.8 ML SYR SC SCH ×2 (09:54→20:06)
[2016-09-09] MEDS: CETIRIZINE 10 MG TAB PO SCH (10:02)
--- NOTE | 2016-09-09 12:45 | SOAPPROG ---
SOIVY Progress Note Assessment/Plan: Assessment: afebrile /much decreased drainage / follow-up CT scan shows adequately drained abscess areas Plan: continue IV antibiotics 09/07/16 16:37 09/08/16 14:08 AFEBRILE AND LOOKING BETTER/ STILL SOME WOUND DRAINAGE/ ENERGY LEVEL IMPROVING / PLAN IS TO CONTINUE IV ANTIBIOTICS POSSIBLY HOME AND 2 TO 3 DAYS ON ORAL ANTIBIOTICS 09/09/16 12:44 AFEBRILE AND COMFORTABLE / WOUND OKAY WITH THE DECREASED DRAINAGE / WOUND CULTURE SHOWS E COLI SENSITIVE TO EVERYTHING / EATING OKAY WE WILL START COUMADIN FOR HIS SPLENIC VEIN THROMBUS / HOME IN 1-2 DAYS ON ORAL ANTIBIOTICS Objective: Vital Signs Temp Pulse Resp BP Pulse Ox 37.0 C 91 16 124/72 H 95 09/09/16 11:35 09/09/16 11:35 09/09/16 11:35 09/09/16 11:35 09/09/16 11:35 Microbiology 09/06/16 07:55 Gram Stain - Final Abdomen - Swab Wound Culture - Final Escherichia Coli Laboratory Results 09/07/16 10:44 09/08/16 09/09/16 09/10/16 05:59 05:59 05:59 Intake Total 950 Output Total 2535 Balance -1585 PT 16.1 SEC (12.0-15.0) H 09/09/16 04:52 INR 1.29 (0.83-1.16) H 09/09/16 04:52 ICD10 Worksheet Patient Problems: Problems Problem Status Onset Incisional abscess Acute Anastomotic leak of intestine Acute Complication of colostomy Acute Diverticulitis large intestine Acute
[2016-09-09] MEDS: WARFARIN SODIUM 5 MG TAB PO SCH (16:13)
[2016-09-09] MEDS: OXYCODONE/APAP 5/325 TAB PO PRN (18:25)
[2016-09-09] MEDS: traZODone 100 MG TAB PO SCH (20:55)
[2016-09-10] MEDS: KETOROLAC 15 MG/1 ML SDV IVP SCH ×4 (05:16→23:31)
[2016-09-10 05:22] LABS: INR 1.67 (0.83-1.16); PROTIME(PATIENT) 19.7 SEC (12.0-15.0)
[2016-09-10 05:23] LABS: APTT 47.5 SEC (23.0-38.0)
[2016-09-10] MEDS ORDERED: LORazepam 2 MG/ML INJ IVP ONE (09:34)
[2016-09-10] MEDS ORDERED: HYDROmorphONE/DILAUDID 1 MG/ML SYR IVP ONE (09:34)
[2016-09-10] MEDS: ENOXAPARIN 80 MG/0.8 ML SYR SC SCH ×2 (09:38→20:04)
[2016-09-10] MEDS: SENNOSIDES/DOCUSATE SODIUM TAB PO SCH ×2 (09:41→20:04)
[2016-09-10] MEDS: CETIRIZINE 10 MG TAB PO SCH (09:42)
--- NOTE | 2016-09-10 09:52 | SOAPPROG ---
SOIVY Progress Note Assessment/Plan: Assessment/Plan: 66 Y M hx perforated diverticulitis, s/p colectomy and diverting colostomy, colostomy takedown and subsequent leak, washout and repeat diverting colostomy, now s/p I&D of abdominal wall wound infection. splenic vein thrombosis. Seen and examined with Dr. Matias. Wound cultures +e coli, susceptible to Levaquin, which pt is tolerating well. Continue IV and plan to change to PO upon d/c. Briseida drain removed. Fascia intact. +tunneling cephalad. +seropurulent drainage without increase upon pressure. Will need to watch in case of subfascial component to abscess/infection, but appears to be adequately drained right now. Packed wound. Removed aaliyah. Splenic v. thrombosis. Coumadin started. INR 1.67 today. Dispo: possibly home tomorrow if continues to do well. S: Increased abdominal pain last evening after lots of walking. O: alert, nad mmm, no jaundice or pallor ctab rrr abd soft wounds: +seropurulent drainage, +granulation, +tunneling cephalad 5 cm. No obvious fascial weakness. no erythema. upper inc cdi. ostomy with soft contents 09/10/16 11:53 Objective: Vital Signs Temp Pulse Resp BP Pulse Ox 37.0 C 86 18 128/90 H 96 09/10/16 08:00 09/10/16 08:00 09/10/16 08:00 09/10/16 08:00 09/10/16 08:00 Laboratory Results 09/07/16 10:44 PT 19.7 SEC (12.0-15.0) H 09/10/16 05:02 INR 1.67 (0.83-1.16) H 09/10/16 05:02 ICD10 Worksheet Patient Problems: Problems Problem Status Onset Incisional abscess Acute Anastomotic leak of intestine Acute Complication of colostomy Acute Diverticulitis large intestine Acute
[2016-09-10] MEDS: WARFARIN SODIUM 5 MG TAB PO SCH (16:21)
[2016-09-10] MEDS: OXYCODONE/APAP 5/325 TAB PO PRN (17:47)
[2016-09-10] MEDS: traZODone 100 MG TAB PO SCH (21:27)
[2016-09-11 05:23] LABS: INR 2.1 (0.83-1.16); PROTIME(PATIENT) 23.7 SEC (12.0-15.0)
[2016-09-11 05:24] LABS: APTT 50.3 SEC (23.0-38.0)
[2016-09-11] MEDS: KETOROLAC 15 MG/1 ML SDV IVP SCH ×2 (05:24→11:35)
[2016-09-11 08:16] VITALS: BP 120/71; PULSE 91; RESP 16; TEMP 98.6; O2SAT 95
[2016-09-11] MEDS: CETIRIZINE 10 MG TAB PO SCH (09:38)
[2016-09-11] MEDS: SENNOSIDES/DOCUSATE SODIUM TAB PO SCH (09:38)
[2016-09-11] MEDS: ENOXAPARIN 80 MG/0.8 ML SYR SC SCH (09:38)
--- NOTE | 2016-09-11 13:36 | PDIAF ---
- Diagnosis Diagnosis: hx diverticulitis, anastomotic leak, abdominal wall abscess Code Status: Full Code - Medication Management Discharge Medications: Medications to Continue on Transfer traZODone [traZODONE 100MG (*)] 100 mg PO HS 03/27/16 [Last Taken 09/05/16] Naproxen Sodium [Aleve 220 MG (*)] 220 - 440 mg PO DAILY PRN 08/02/16 [Last Taken 09/05/16 21:00] Multivitamins [Multivitamin (*)] 1 each PO DAILY 09/06/16 [Last Taken 09/05/16] Warfarin Sodium [Coumadin 5MG (*)] 5 mg PO DAILY AT 4PM #30 tab 09/11/16 [Last Taken Unknown] levOFLOXACIN [Levaquin] 750 mg PO DAILY #14 tablet 09/11/16 [Last Taken Unknown] oxyCODONE/APAP 5/325 [Percocet 5/325 (*)] 2 tab PO Q4HRS PRN #0 tab 09/11/16 [ Last Taken Unknown] Top Cutter Antibiotics: Levaquin 750 mg i PO daily, #14 Discharge Medications: Refer to the Discharge Home Medication list for PRN reason. PICC Care - Routine: N/A - Orders Services needed: Home Care, Registered Nurse Home Care Face to Face: I certify that this patient was under my care and that I had the required [id number] encounter meeting the encounter requirements on the discharge day. My findings support the fact that the patient is homebound as defined in CMS Chapter 7 Medicare Benefits Manual 30.1.1, The condition of the patient is such that there exists a normal inability to leave home and consequently, leaving home would require a considerable and taxing effort. Diet Recommendation: no restrictions on diet Diet Texture: Regular Texture Diet Wound Care Instructions: Please pack wound daily with 1/2 inch iodoform or plain gauze daily. The wound tunnels cephalad. Cover with gauze or abd and tape. Routine ostomy care (patient familiar with this). - Labs/Radiology PT/INR Date: 09/13/16 (please cc Dr. Matias and pt's PCP Dr. Arriaga) - Follow Up Care Current Providers and Referrals: Lj Matias MD [Medical Doctor] - (call for an appointment for either or saturday.) Rupal Arriaga MD [Primary Care Provider] - As per Instructions
--- NOTE | 2016-09-11 14:25 | SOAPPROG ---
SOAP Progress Note Assessment/Plan: Assessment/Plan: 66 Y M hx perforated diverticulitis, s/p colectomy and diverting colostomy, colostomy takedown and subsequent leak, washout and repeat diverting colostomy, now s/p I&D of abdominal wall wound infection. splenic vein thrombosis. Seen and examined with Dr. Matias. Doing well. Less wound drainage. INR 2.10. D/c to home today with home nurse. Plan for daily wound packing, INR labs on , and f/u c Fl[place]io on Saturday. Rx levaquin, warfarin. discussed effects of vit K. S: ready to go home today O: alert, nad mmm, no jaundice or pallor ctab rrr abd soft wounds: min serous drainage +granulation, +tunneling cephalad 5 cm. No obvious fascial weakness. no erythema. upper inc cdi. ostomy with soft contents 09/11/16 14:21 Objective: Vital Signs Temp Pulse Resp BP Pulse Ox 37 C 91 16 120/71 95 09/11/16 08:00 09/11/16 08:00 09/11/16 08:00 09/11/16 08:00 09/11/16 08:00 Laboratory Results 09/07/16 10:44 09/10/16 09/11/16 09/12/16 05:59 05:59 05:59 Intake Total 400 Output Total 300 Balance -300 400 PT 23.7 SEC (12.0-15.0) H 09/11/16 04:55 INR 2.10 (0.83-1.16) H 09/11/16 04:55 ICD10 Worksheet Patient Problems: Problems Problem Status Onset Incisional abscess Acute Anastomotic leak of intestine Acute Complication of colostomy Acute Diverticulitis large intestine Acute
[2016-09-11] MEDS: WARFARIN SODIUM 5 MG TAB PO SCH (15:06)
== END 2016-09-11 15:11 | disposition home health service (06) | DRG 863 ==
LOC: EDUNIT# → F3E 04:49
PROVIDERS: ADMIT Surgery; ATTEND Surgery
PROC: 0H97XZZ Drainage of Abdomen Skin, External Approach (ICD-10-PCS; principal; 2016-09-06)
DX: T81.4XXA Infection following a procedure, initial encounter (principal); B96.20 Unspecified Escherichia coli [E. coli] as the cause of diseases classified elsewhere; I82.890 Acute embolism and thrombosis of other specified veins; Z86.14 Personal history of Methicillin resistant Staphylococcus aureus infection; Z87.891 Personal history of nicotine dependence
CPT/HCPCS: 96374; 97161-GP; 97165-GO; G8978-GP-CI; G8979-GP-CI; G8980-GP-CI; G8987-GO-CI; G8988-GO-CI; G8989-GO-CI; J1170; J1335; J1650; J1885; J1956; J2060; J2270; Q9967

== ENCOUNTER → 2016-12-07 | Outpatient (CLI) | payer BC, OTHER ==
[~2016-12-07] MED LIST changes: -BUPIVACAINE 0.5% 30 ML SDV ONE; +IOPAMIDOL (ISOVUE-300) 100 ML BTL ONE; -cefOXitin SODIUM 1 GM in D5W 50 ML IV ONE
== END ==
LOC: FIMAGING 14:10
PROVIDERS: ATTEND Surgery
DX: Z93.3 Colostomy status (principal); K57.30 Diverticulosis of large intestine without perforation or abscess without bleeding; R91.8 Other nonspecific abnormal finding of lung field
CPT/HCPCS: Q9967

== ENCOUNTER 2016-12-21 07:35 | Day surgery (SDC) | payer BC, OTHER ==
--- NOTE | 2016-12-21 08:45 | CPEKG ---
Heart Rate: 70 RR Interval: 857 P-R Interval: 180 QRSD Interval: 90 QT Interval: 392 QTC Interval: 423 P Venice: 50 QRS Venice: 48 T Wave Venice: 54 EKG Severity - OTHERWISE NORMAL ECG - EKG Impression: SINUS RHYTHM Electronically Signed By: Rohan Souza 24-Dec-2016 05:36:28
[2016-12-21] MEDS ORDERED: LIDOCAINE 1% 2 ML INJ ONE (08:53)
--- NOTE | 2016-12-21 08:57 | GHP ---
[f rep st] PREOP HISTORY AND PHYSICAL DATE OF ADMISSION: 12/21/2016 HISTORY OF PRESENT ILLNESS: Noe is a 66 yo male with a PMH of diverticulitis who underwent abdominal surgery for a perforated colon and subsequently developed an abscess at the inferior portion of his midline incisional wound that underwent I&D and was left open to drain. He was prescribed bactrim. He underwent an abdominal CT scan with contrast to assess the extent of the potential abscess. Because he has had a complicated course, he is concerned about the future Donald's pouch reversal surgery. The patient is ready for a colostomy closure, but needs to have a flexible sigmoidoscopy prior to surgery as well as a CT scan of the abdomen and pelvis. REVIEW OF SYSTEMS: A 10-point review of systems is negative except for as noted above in the HPI. PMH: abdominal pain, celiacs, chronic gastritis, colovesical fistula, diverticulitis, low back pain, MRSA Past Surgical Hx: Colon resection, multiple orthopedic surgeries, tonsillectomy and adenoidectomy. Meds: Flagyl, Levofloxacin, Percocet, Trazadone, Hydroxyzine HCL ALLERGIES: Codeine products, hydromorphone PHYSICAL EXAMINATION: GENERAL: Patient is a pleasant male in no apparent distress. HEAD AND NECK: Normocephalic, atraumatic. CHEST: Clear to auscultation bilaterally. CARDIAC: Regular rate and rhythm. ABDOMEN: Midline incision well healed. Left colostomy in place. Abdomen is soft and nontender throughout 4 quadrants. EXTREMITIES: No lower extremity edema. Normal dorsalis pedis pulses to palpation. ASSESSMENT: Diverticulitis, patient ready for a colostomy closure. PLAN: The patient was seen and examined by Dr. Matias. The patient will have a flexible sigmoidoscopy prior to surgery to evaluate. /[id number]/MODL MTDD
[2016-12-21 09:00] VITALS: PULSE 74; RESP 16
--- NOTE | 2016-12-21 09:03 | PDHPUP ---
History & Physical Update H&P update statement: This history and physical update is based on an assessment of the patient which was completed after admission or registration (within 24 hours), but prior to the surgery/procedure. H&P update: H&P reviewed & patient examined, no change in patient's condition since H&P completed
[2016-12-21] MEDS ORDERED: LR 1,000 ML IV ONE (09:04)
[2016-12-21] MEDS ORDERED: LIDOCAINE 1% 2 ML INJ ID PRN (09:04)
[2016-12-21] MEDS ORDERED: MIDAZOLAM 2 MG/2 ML VIAL IVP ONE (10:10)
--- NOTE | 2016-12-21 10:11 | PDANEPAE ---
ANE Past Medical History - Cardiovascular History Hx Hypertension: No Hx Arrhythmias: No Hx Chest Pain: No Hx Coronary Artery / Peripheral Vascular Disease: No Hx CHF / Valvular Disease: No Hx Palpitations: No - Pulmonary History Hx COPD: No Hx Asthma/Reactive Airway Disease: No Hx Recent Upper Respiratory Infection: No Hx Oxygen in Use at Home: No Hx Sleep Apnea: No Sleep Apnea Screening Result - Last Documented: Negative - Neurologic History Hx Cerebrovascular Accident: No Hx Seizures: No Hx Dementia: No Neurologic History Comment: PREV BACK SURGERY X3 L4-5 - Endocrine History Hx Diabetes: No Hypothyroid: No Hyperthyroid: No Obesity: mild - Renal History Hx Renal Disorders: No - Liver History Hx Hepatic Disorders: No - Neurological & Psychiatric Hx Hx Neurological and Psychiatric Disorders: No - Cancer History Hx Cancer: No - Congenital Disorder History Hx Congenital Disorders: No - GI History Hx Gastrointestinal Disorders: Yes Gastrointestinal History Comment: COLOSTOMY. CELIAC DX. HX OF DIVERTICULITIS. HX OF COLON RESECTION REMOVAL OF 12 INCHES - Other Health History Other Health History: WEARS GLASSES - Chronic Pain History Chronic Pain: No - Surgical History Prior Surgeries: LAPAROTOMY WITH ANASTOMOTIC LEAK RECREATION OF COLOSTOMY WOUND VAC RELATED TO N 08/2016. COLOSTOMY TAKE DOWN 07/2016. LAP, COLON RESECTION, COLOSTOMY . EGD/ COLONOSCOPY 03/2016. BACK SURGERY X3 L4-5. BILATERAL HERNIA REPAIR. LEFT ELBOW ORIF ANE Review of Systems - Exercise capacity METS (RN): 4 METS ANE Patient History - Allergies Allergies/Adverse Reactions: gluten Allergy (Severe, Verified 09/06/16 02:45) Other-Enter Comments codeine Allergy (Verified 09/06/16 02:45) Rash - Home Medications Home Medications: traZODone [traZODONE 100MG (*)] 100 mg PO HS 03/27/16 [Last Taken 12/20/16 21:00 ] Bactrim DS BID 12/20/16 [Last Taken 12/20/16 21:00] Probiotic DAILY 12/20/16 [Last Taken 12/20/16 07:30] Xarelto HS 12/20/16 [Last Taken 12/20/16 21:00] - NPO status NPO Since - Liquids (Date): 12/20/16 NPO Since - Liquids (Time): 22:00 NPO Since - Solids (Date): 08/10/17 NPO Since - Solids (Time): 21:00 - Smoking Hx Smoking Status: Former smoker - Family Anes Hx Family Hx Anesthesia Complications: NONE ANE Labs/Vital Signs - Vital Signs Blood Pressure: 105/76 Heart Rate: 74 Respiratory Rate: 16 O2 Sat (%): 96 Height: 172.72 cm Weight: 77.111 kg ANE Physical Exam - Airway Neck exam: FROM Mallampati Score: Class 1 Mouth exam: normal dental/mouth exam - Pulmonary Pulmonary: no respiratory distress - Cardiovascular Cardiovascular: regular rate and rhythym - ASA Status ASA Status: II ANE Anesthesia Plan Anesthesia Plan: GA w LMA
[2016-12-21] MEDS ORDERED: fentaNYL 100 MCG/2 ML INJ ONE ×3 (10:29→13:42)
[2016-12-21] MEDS ORDERED: PROPOFOL 200 MG/20 ML VIAL ONE ×2 (10:30→10:46)
[2016-12-21] MEDS ORDERED: METHYLENE BLUE 0.5% 50 MG/10 ML AMP ONE (10:32)
[2016-12-21] MEDS ORDERED: epHEDrine SULFATE 10 MG/ML SYR ONE (10:36)
[2016-12-21] MEDS ORDERED: PHENYLEPHRINE HCL 100 MCG/ML SYR ONE (10:36)
[2016-12-21] MEDS ORDERED: THROMBIN(HUM PLAS)/FIBRINOG/CA 5 ML VIAL TP ONE ×2 (11:08→11:47)
[2016-12-21] MEDS ORDERED: BUPIVACAINE/EPI 0.5% 30 ML SDV ONE (11:43)
[2016-12-21] MEDS ORDERED: IOTHALAMATE MEG (CONRAY) 50 ML VIAL IV ONE (11:45)
--- NOTE | 2016-12-21 12:33 | POSTOPPROG ---
Post Op Note Date of Operation: 12/21/16 Surgeon: Lj Matias Consumer Banker: Macrina Morin Anesthesiologist: Librado Anesthesia: GET(General Endotracheal) Pre-op Diagnosis: Fistula, diverticulitis Post-op Diagnosis: Same Indication: Pre colostomy take down Procedure: Mini expl laparotomy, fistula repair with glue, fluoroscopy, flex sig Findings: Colonic fistula Inf/Abcess present in the surg proc area at time of surgery?: No Depth: Deep Incisional (Fascial) EBL: Minimal
[2016-12-21] MEDS ORDERED: MEPERIDINE 25 MG/ML SYR IVP PRN (12:56)
[2016-12-21] MEDS ORDERED: fentaNYL 100 MCG/2 ML INJ IVP PRN (12:56)
[2016-12-21] MEDS ORDERED: LR 500 ML IV PRN (12:56)
[2016-12-21] MEDS ORDERED: HYDROCODONE/APAP 5/325 TAB PO PRN ×2 (12:56→15:27)
[2016-12-21] MEDS ORDERED: PROMETHAZINE HCL 25 MG/ML INJ IVP PRN (12:56)
[2016-12-21] MEDS ORDERED: NALOXONE HCL 0.4 MG/ML INJ IVP PRN (12:56)
[2016-12-21 13:23] VITALS: TEMP 97.7
[2016-12-21] MEDS ORDERED: HYDROCODONE/APAP 5/325 TAB ONE (15:22)
[2016-12-21 16:51] VITALS: BP 78/64; O2SAT 94
[2016-12-22] MEDS ORDERED: ENOXAPARIN 40 MG/0.4 ML SYR SC SCH (09:00)
== END 2016-12-21 16:50 | disposition home or self-care (01) ==
LOC: FSGY 07:35
PROVIDERS: ATTEND Surgery
DX: K57.32 Diverticulitis of large intestine without perforation or abscess without bleeding (principal); K63.2 Fistula of intestine; K29.50 Unspecified chronic gastritis without bleeding; Z90.49 Acquired absence of other specified parts of digestive tract
CPT/HCPCS: J1200; J1956; J2250; J2370; J2704; J3010; Q9961; Q9968

== ENCOUNTER → 2017-01-18 | Outpatient (CLI) | payer BC | LOC: EDSTATUS 11:23 → FIMAGING 12:26 → FLAB 12:26 | PROVIDERS: ATTEND Surgery | DX: T81.4XXA Infection following a procedure, initial encounter (principal) ==

== ENCOUNTER 2017-02-05 10:06 | Inpatient (IN) | payer OTHER, BC ==
--- NOTE | 2017-02-01 15:47 | GHP ---
[f rep st] HISTORY AND PHYSICAL DATE OF ADMISSION: 02/05/2017 CHIEF COMPLAINT: Midline incisional wound, with a history of diverticulitis requiring colostomy. HISTORY OF PRESENT ILLNESS: The patient is a 66-year-old male who is following up for wound care sta tus post mini exploratory laparotomy, colonic fistula repair, and flex sigmoidoscopy for an open abdo genet wound secondary to failed colostomy takedown and anastomotic leak, status post partial colectom y with colostomy for diverticulitis earlier this year. He has been treated with wound VAC for about 4 weeks now. As of 01/18/2017, his wound was not healing well, as well as we had hoped for, and ther e was concern for recurrent fistula, which prompted a wound culture that grew out corynebacterium, an d an x-ray fluoroscopy that revealed a mild trickle of contrast dye from the left posterior aspect of the wound down into the pelvis anterior to the Donald's pouch. The patient was prescribed Levaqui n at the time for bacterial infection. At his last followup visit for this wound, the wound presente d with copious drainage of mucousy and purulent material. Given this, we discussed the possibility o f needing an additional laparotomy with fistula repair, discontinuing his wound VAC, and replacing th e wound with gauze. At this time, doxycycline was added to his antibiotic regimen to cover the cultu red organism. Today, the wound no longer displayed copious drainage. There was some granulation tis argelia present in the wound bed, but it is still recommended that the patient undergo an exploratory lap arotomy. PAST MEDICAL HISTORY: Abdominal pain, celiac disease, chronic gastritis, colon polyps, colovesicular fistula, diverticulitis, low back pain, migraine, MRSA, splenic vein thrombosis. PAST SURGICAL HISTORY: Colon resection, colostomy takedown, incision and drainage of wound in abdome n, multiple orthopedic surgeries. MEDICATIONS: Aleve, doxycycline, trazodone, Xarelto. ALLERGIES: Codeine, hydromorphone. SOCIAL HISTORY: He is a former tobacco user. REVIEW OF SYSTEMS: Ten-point review of systems is negative, except for as noted above in the HPI. PHYSICAL EXAM: GENERAL: Well-groomed, nontoxic, pleasant male. SKIN: Warm, dry. ABDOMEN: Open m idline wound has contracted only minimally, shows granulating tissue in the wound bed that is sparse. There is minimal drainage, and the wound still tracks inferiorly and posteriorly for about 1-2 cm w hen probed with a Q-tip. Fascia appears intact. No erythema or warmth surrounding the wound. ASSESSMENT: The patient has an open abdominal incisional wound with minimal granulation tissue and a possible fistula. PLAN: We are planning for an exploratory laparotomy. There is a small chance that we could take corazon n the colostomy at the same time as the exploratory laparotomy, but I explained that this depends ent irely what is seen when we open him up. The granulation tissue that is present in the wound bed does not look completely healthy, as it does not appear pink and proliferative. These signs may indicate that the healing has slowed down by an underlying infection. He will stay on his antibiotics at thi s time. /[id number]/MODL
[2017-02-05] MEDS ORDERED: LIDOCAINE 1% 2 ML INJ ID PRN (10:22)
[2017-02-05] MEDS ORDERED: LR 1,000 ML IV ONE (10:22)
[2017-02-05] MEDS ORDERED: BUPIVACAINE 0.5% 30 ML SDV ONE (10:38)
[2017-02-05 10:54] LABS: % IMMATURE GRANULYOCYTES 0.2 % (0.0-1.1); ABSOLUTE IMMATURE GRANULOCYTES 0.01 10^3/uL (0.00-0.10); ADD DIFF? NO; ADD MORPH? NO; ADD SCAN? NO; ATYPICAL LYMPHOCYTE FLAG 20 (0-99); FRAGMENT RBC FLAG 0 (0-99); HEMATOCRIT 43.6 % (40.0-51.0); HEMOGLOBIN 15.2 g/dL (13.7-17.5); LEFT SHIFT FLG 0 (0-99); LIPEMIA HEMOLYSIS FLAG 90 (0-99); MEAN CELL HEMOGLOBIN 31.9 pg (27.9-34.1); MEAN CELL HEMOGLOBIN CONCENTR. 34.9 g/dL (32.4-36.7); MEAN CELL VOLUME 91.6 fL (81.5-99.8); PLATELET CLUMPS FLAG 0 (0-99); PLATELET COUNT 197 10^3/uL (150-400); RED BLOOD CELL COUNT 4.76 10^6/uL (4.40-6.38); RED CELL DISTRIBUTION WIDTH 13.4 % (11.5-15.2)
[2017-02-05] MEDS ORDERED: fentaNYL 100 MCG/2 ML INJ ONE ×4 (10:57→13:48)
[2017-02-05] MEDS ORDERED: MIDAZOLAM 2 MG/2 ML VIAL ONE (10:57)
[2017-02-05] MEDS ORDERED: PROPOFOL/EMULSION 500 MG/50 ML BOTTLE IV ONE (10:58)
[2017-02-05 11:17] LABS: ANION GAP 10 mEq/L (8-16); CALCIUM 9.4 mg/dL (8.5-10.4); CARBON DIOXIDE 23 mEq/l (22-31); CHLORIDE 104 mEq/L (97-110); CREATININE 1.1 mg/dL (0.7-1.3); GLOMERULAR FILTRATION RATE > 60; GLUCOSE 94 mg/dL (70-100); POTASSIUM 4.4 mEq/L (3.5-5.2); SODIUM 137 mEq/L (134-144)
[2017-02-05] MEDS ORDERED: METOCLOPRAMIDE 10 MG/2 ML VIAL ONE (11:28)
[2017-02-05] MEDS ORDERED: PHENYLEPHRINE HCL 100 MCG/ML SYR ONE (11:28)
[2017-02-05] MEDS ORDERED: KETOROLAC 30 MG/1 ML SDV ONE (11:28)
[2017-02-05] MEDS ORDERED: SUGAMMADEX SODIUM 200 MG/2 ML VIAL IVP ONE (11:28)
[2017-02-05] MEDS ORDERED: LIDOCAINE 2% 5 ML SDV ONE (11:28)
[2017-02-05] MEDS ORDERED: ONDANSETRON 4 MG/2 ML VIAL ONE (11:28)
[2017-02-05] MEDS ORDERED: RANITIDINE 50 MG/2 ML VIAL ONE (11:28)
[2017-02-05] MEDS ORDERED: ROCURONIUM 50 MG/5 ML VIAL ONE ×2 (11:28→11:48)
[2017-02-05] MEDS ORDERED: NALOXONE HCL 0.4 MG/ML INJ IVP PRN ×2 (11:43→13:51)
[2017-02-05] MEDS ORDERED: DEXAMETHASONE 4 MG/ML VIAL IVP PRN (11:43)
[2017-02-05] MEDS ORDERED: MEPERIDINE 25 MG/ML SYR IVP PRN (11:43)
[2017-02-05] MEDS ORDERED: PROMETHAZINE HCL 25 MG/ML INJ IVP PRN (11:43)
[2017-02-05] MEDS ORDERED: LR 500 ML IV PRN (11:43)
[2017-02-05] MEDS ORDERED: ONDANSETRON 4 MG/2 ML VIAL IVP PRN (11:43)
[2017-02-05] MEDS ORDERED: ALBUTEROL 3 ML DEYVIAL IH PRN (11:43)
[2017-02-05] MEDS ORDERED: METOCLOPRAMIDE 10 MG/2 ML VIAL IVP PRN (11:43)
--- NOTE | 2017-02-05 11:43 | PDANEPAE ---
ANE Past Medical History - Cardiovascular History Hx Hypertension: No Hx Arrhythmias: No Hx Chest Pain: No Hx Coronary Artery / Peripheral Vascular Disease: No Hx CHF / Valvular Disease: No Hx Palpitations: No - Pulmonary History Hx COPD: No Hx Asthma/Reactive Airway Disease: No Hx Recent Upper Respiratory Infection: No Hx Oxygen in Use at Home: No Hx Sleep Apnea: No Sleep Apnea Screening Result - Last Documented: Negative - Neurologic History Hx Cerebrovascular Accident: No Hx Seizures: No Hx Dementia: No Neurologic History Comment: PREV BACK SURGERY X3 L4-5 - Endocrine History Hx Diabetes: No - Renal History Hx Renal Disorders: No - Liver History Hx Hepatic Disorders: No Hepatic History Comment: SMALL CLOT FOUND - SPLEEN - Neurological & Psychiatric Hx Hx Neurological and Psychiatric Disorders: No - Cancer History Hx Cancer: No - Congenital Disorder History Hx Congenital Disorders: No - GI History Hx Gastrointestinal Disorders: Yes Gastrointestinal History Comment: COLOSTOMY. CELIAC DX. HX OF DIVERTICULITIS. HX OF COLON RESECTION REMOVAL OF 12 INCHES - Other Health History Other Health History: WEARS GLASSES - Chronic Pain History Chronic Pain: No - Surgical History Prior Surgeries: 12/21/2016FLEX SIG W/EXP LAP,FISTULECTOMY. LAPAROTOMY WITH ANASTOMOTIC LEAK RECREATION OF COLOSTOMY WOUND VAC RELATED TO N 08/2016. COLOSTOMY TAKE DOWN 07/2016. LAP, COLON RESECTION, COLOSTOMY . EGD/ COLONOSCOPY 03/2016. BACK SURGERY X3 L4-5. BILATERAL HERNIA REPAIR. LEFT ELBOW ORIF ANE Review of Systems Review of Systems: - Exercise capacity METS (RN): 4 METS ANE Patient History - Allergies Allergies/Adverse Reactions: gluten Allergy (Severe, Verified 09/06/16 02:45) Other-Enter Comments codeine Allergy (Verified 09/06/16 02:45) Rash hydromorphone Allergy (Verified 02/04/17 16:32) - Home Medications Home Medications: traZODone [traZODONE 100MG (*)] 100 mg PO HS 03/27/16 [Last Taken 02/04/17] Doxycycline Hyclate [Vibramycin 100 MG (*)] 100 mg PO BID 02/04/17 [Last Taken 02/04/17] Herbals/Supplements -Info Only 1 ea PO DAILY 02/04/17 [Last Taken Unknown] Naproxen Sodium [Aleve 220 MG (*)] 220 mg PO BID PRN 02/04/17 [Last Taken ] Rivaroxaban [Xarelto 10mg (*)] 20 mg PO DAILY 02/04/17 [Last Taken 02/03/17] - NPO status NPO Since - Liquids (Date): 02/04/17 NPO Since - Liquids (Time): 21:00 NPO Since - Solids (Date): 02/04/17 NPO Since - Solids (Time): 19:00 - Smoking Hx Smoking Status: Former smoker - Family Anes Hx Family Hx Anesthesia Complications: NONE ANE Labs/Vital Signs - Labs Result Diagrams: 02/05/17 10:40 02/05/17 10:40 - Vital Signs Blood Pressure: 118/86 Heart Rate: 85 Respiratory Rate: 16 O2 Sat (%): 95 Height: 175.26 cm Weight: 77.111 kg ANE Physical Exam - Airway Mallampati Score: Class 1 Mouth exam: normal dental/mouth exam - Pulmonary Pulmonary: no respiratory distress, no rales or rhonchi, clear to auscultation - Cardiovascular Cardiovascular: regular rate and rhythym - ASA Status ASA Status: III ANE Anesthesia Plan Anesthesia Plan: general endotracheal anesthesia
[2017-02-05] MEDS ORDERED: HYDROmorphONE/DILAUDID 1 MG/ML INJ IVP PRN (12:28)
[2017-02-05] MEDS ORDERED: PROPOFOL 200 MG/20 ML VIAL ONE (12:34)
[2017-02-05] MEDS: fentaNYL 100 MCG/2 ML INJ IVP PRN ×4 (13:35→14:03)
[2017-02-05] MEDS ORDERED: OXYCODONE/APAP 5/325 TAB PO PRN (13:56)
--- NOTE | 2017-02-05 14:02 | POSTOPPROG ---
Post Op Note Date of Operation: 02/05/17 Surgeon: Lj Matias Word Processing Machine Operator: Brenda Monsalve Anesthesiologist: Jadyn Vargas Anesthesia: GET(General Endotracheal) Pre-op Diagnosis: nonhealing abd wound, diverting colostomy status, suspected fistula Post-op Diagnosis: enterocutaneous fistula Procedure: laparotomy c fistulous tract excision c closure of rectal stump Findings: fistulous tract to rectal stump, adjacent to bladder, sutures, adhesions Inf/Abcess present in the surg proc area at time of surgery?: Yes Depth: Organ Space EBL: Minimal Complications: none Drains: Darron Rico, Wound Vac Specimen(s): to pathology
[2017-02-05] MEDS ORDERED: HYDROmorphONE/DILAUDID 1 MG/ML INJ ONE (14:34)
[2017-02-05] MEDS ORDERED: cefOXitin SODIUM 2 GM in D5W 100 ML IV ONE (15:00)
[2017-02-05] MEDS: morphINE PCA 30 MG/30 ML PCA IV PRN (16:49)
[2017-02-05] MEDS: KETOROLAC 15 MG/1 ML SDV IVP SCH ×2 (18:21→23:46)
[2017-02-05] MEDS: D5W 1/2 NS 1,000 ML IV SCH (18:21)
[2017-02-05] MEDS: diphenhydrAMINE 25 MG CAP PO PRN (20:24)
[2017-02-05] MEDS: traZODone 100 MG TAB PO SCH (20:24)
[2017-02-06] MEDS: D5W 1/2 NS 1,000 ML IV SCH ×3 (01:24→18:00)
[2017-02-06 05:05] LABS: HEMOGLOBIN 12.7 g/dL (13.7-17.5)
[2017-02-06 05:19] LABS: ANION GAP 8 mEq/L (8-16); CALCIUM 8.3 mg/dL (8.5-10.4); CARBON DIOXIDE 24 mEq/l (22-31); CHLORIDE 103 mEq/L (97-110); CREATININE 1.2 mg/dL (0.7-1.3); GLOMERULAR FILTRATION RATE > 60; GLUCOSE 110 mg/dL (70-100); POTASSIUM 3.9 mEq/L (3.5-5.2); SODIUM 135 mEq/L (134-144)
[2017-02-06] MEDS: KETOROLAC 15 MG/1 ML SDV IVP SCH ×3 (05:59→18:02)
[2017-02-06] MEDS: diphenhydrAMINE 25 MG CAP PO PRN ×2 (08:22→20:15)
[2017-02-06] MEDS: RIVAROXABAN 10 MG TAB PO SCH (08:22)
[2017-02-06] MEDS ORDERED: FLU VACC QS 2017-18 (3YR+)/PF 0.5 ML SYR (FLUARIX QUAD) IM ONE ×2 (08:38→11:00)
[2017-02-06] MEDS ORDERED: ENOXAPARIN 40 MG/0.4 ML SYR SC SCH (09:00)
--- NOTE | 2017-02-06 10:28 | SOAPPROG ---
SOAP Progress Note Assessment/Plan: Assessment/Plan: 66 Y M complicated past abdominal surgical history now s/p laparotomy with resection of rectocutaneous fistula. Doing well this am. Continue wilkes catheter due to proximity of surgical repair and need for bladder decompression. Advance diet, regular. Buff cap IVF. Plan for vac change on Saturday. Wound care consulted. IV abx for contamination. Dispo: pending. Possibly home after vac change on Saturday pending course. Patient does have a wound vac at home but will need home health care nurse. S: about to get OOB for first time this am. Pain about a 3. O: alert, nad mmm no wob abd soft vac to good suction 02/06/17 10:22 Objective: Vital Signs Temp Pulse Resp BP Pulse Ox 37.2 C 95 16 107/63 94 02/06/17 07:23 02/06/17 09:30 02/06/17 09:30 02/06/17 09:30 02/06/17 09:30 Laboratory Results 02/06/17 04:39 02/06/17 04:39 02/05/17 02/06/17 02/07/17 05:59 05:59 05:59 Intake Total 900 Output Total 510 Balance 390 ICD10 Worksheet Patient Problems: Problems Problem Status Onset Anastomotic leak of intestine Acute Complication of colostomy Acute Diverticulitis large intestine Acute Incisional abscess Acute
[2017-02-06] MEDS: ERTAPENEM 1 GM in NS 100 ML IV SCH (11:24)
--- NOTE | 2017-02-06 13:11 | ASMTCMCOM ---
CM Note CM Note Notes: Pt has complicated past abd surg history. Had expl lap w/resection of fistula on 02/05, currently w/wound vac in place. Plan is to have wound vac change on saturday. He will likely dc home w/ when med stable. Per progress notes, pt has vac at home. He will need C RN. Met w/pt to discuss; he has had [facility] (Jocelyn Faustin RN) in past and would like to use again. Notified Magy at [facility]. Also spoke w/Jocelyn who said they are happy to see him again as long as he can agree to be homebound as this became difficult in past. BARBARA w/f. Date Signed: 02/06/2017 01:10 PM Electronically Signed By:Mildred Alan RN
[2017-02-06] MEDS: traZODone 100 MG TAB PO SCH (20:15)
[2017-02-06] MEDS: morphINE PCA 30 MG/30 ML PCA IV PRN (21:56)
[2017-02-07] MEDS: KETOROLAC 15 MG/1 ML SDV IVP SCH ×5 (00:14→23:47)
[2017-02-07] MEDS: D5W 1/2 NS 1,000 ML IV SCH ×3 (02:09→17:38)
[2017-02-07] MEDS: ERTAPENEM 1 GM in NS 100 ML IV SCH (07:47)
[2017-02-07] MEDS ORDERED: ONDANSETRON DISINTEGRATING 4 MG TAB PO PRN (08:15)
[2017-02-07] MEDS: ONDANSETRON 4 MG/2 ML VIAL IVP PRN ×2 (08:50→17:39)
[2017-02-07] MEDS: RIVAROXABAN 10 MG TAB PO SCH (09:55)
--- NOTE | 2017-02-07 17:10 | SOAPPROG ---
SOAP Progress Note Assessment/Plan: Assessment: 66 Y M complicated past abdominal surgical history now s/p laparotomy with resection of rectocutaneous fistula. Doing well this morning aside from nausea. Cont Zofran for nausea Cont pain management Continue would vac to suction. Will change Vac tomorrow. D/c Bernal Cont regular diet Cont IV abx Dispo: possibly home tomorrow after vac change if tolerating regular diet without N/V. Will need home healthcare nurse Discussed c Dr. Matias S: Feeling nauseous this morning. No vomiting. Pain is well controlled. O: Lying in bed, NAD, alert and oriented MMM Lungs CTAB RRR Abd soft, appropriately TTP near incision, + BS Vac to suction with serosang output Objective: Vital Signs Temp Pulse Resp BP Pulse Ox 37.5 C 99 20 128/79 H 91 L 02/07/17 15:17 02/07/17 15:17 02/07/17 15:17 02/07/17 15:17 02/07/17 15:17 Laboratory Results 02/06/17 04:39 02/06/17 04:39 02/06/17 02/07/17 02/08/17 05:59 05:59 05:59 Intake Total 900 4983 50 Output Total 510 2370 1015 Balance 390 7767 -693 ICD10 Worksheet Patient Problems: Problems Problem Status Onset Anastomotic leak of intestine Acute Complication of colostomy Acute Diverticulitis large intestine Acute Incisional abscess Acute
[2017-02-07] MEDS: traZODone 100 MG TAB PO SCH (21:20)
[2017-02-07] MEDS: diphenhydrAMINE 25 MG CAP PO PRN (21:20)
[2017-02-08] MEDS: D5W 1/2 NS 1,000 ML IV SCH ×3 (01:42→19:42)
[2017-02-08] MEDS: KETOROLAC 15 MG/1 ML SDV IVP SCH ×3 (06:01→17:37)
[2017-02-08] MEDS: ERTAPENEM 1 GM in NS 100 ML IV SCH (08:57)
[2017-02-08] MEDS: RIVAROXABAN 10 MG TAB PO SCH (10:16)
[2017-02-08] MEDS ORDERED: LIDOCAINE HCL 4% TOPICAL SOLN 50ML TP ONE (11:00)
[2017-02-08] MEDS: diphenhydrAMINE 25 MG CAP PO PRN ×2 (11:56→13:15)
--- NOTE | 2017-02-08 12:05 | SOAPPROG ---
SOAP Progress Note Assessment/Plan: Assessment: 66 Y M complicated past abdominal surgical history now s/p laparotomy with resection of rectocutaneous fistula. Cont Zofran for nausea Cont pain management Wound Vac change today by wound care team Cont regular diet Cont IV abx Dispo: possibly home today after vac change or tomorrow. Will need home healthcare nurse Discussed c Dr. Matias S: Experiencing some increased pain this morning after having walked around on the floors. Passing gas and having bowel movements. Denies N/V/D/C O: Lying in bed, NAD, alert and oriented MMM Lungs CTAB RRR Abd soft, appropriately TTP near incision, + BS Vac to suction with serosang output 02/08/17 12:02 Objective: Vital Signs Temp Pulse Resp BP Pulse Ox 37.3 C 91 16 123/72 H 93 02/08/17 08:00 02/08/17 08:00 02/08/17 08:00 02/08/17 08:00 02/08/17 08:00 Laboratory Results 02/06/17 04:39 02/06/17 04:39 02/07/17 02/08/17 02/09/17 05:59 05:59 05:59 Intake Total 4983 850 Output Total 8072 2270 Balance 2613 -2584 ICD10 Worksheet Patient Problems: Problems Problem Status Onset Anastomotic leak of intestine Acute Complication of colostomy Acute Diverticulitis large intestine Acute Incisional abscess Acute
--- NOTE | 2017-02-08 12:55 | PDIAF ---
- Diagnosis Diagnosis: EC fistula Code Status: Full Code - Medication Management Discharge Medications: Medications to Continue on Transfer traZODone [traZODONE 100MG (*)] 100 mg PO HS 03/27/16 [Last Taken 02/04/17] Doxycycline Hyclate [Vibramycin 100 MG (*)] 100 mg PO BID 02/04/17 [Last Taken 02/04/17] Herbals/Supplements -Info Only 1 ea PO DAILY 02/04/17 [Last Taken Unknown] Naproxen Sodium [Aleve 220 MG (*)] 220 mg PO BID PRN 02/04/17 [Last Taken ] Rivaroxaban [Xarelto 10mg (*)] 20 mg PO DAILY 02/04/17 [Last Taken 02/03/17] Ondansetron Odt [Zofran Odt 4 mg (*)] 4 mg PO Q4HRS PRN #14 tab 02/08/17 [Last Taken Unknown] oxyCODONE/APAP 5/325 [Percocet 5/325 (*)] 1 - 2 tab PO Q4 PRN #30 tab 02/08/17 [ Last Taken Unknown] Discharge Medications: Refer to the Discharge Home Medication list for PRN reason. - Orders Services needed: Home Care, Registered Nurse Home Care Face to Face: I certify that this patient was under my care and that I had the required [id number] encounter meeting the encounter requirements on the discharge day. My findings support the fact that the patient is homebound as defined in Home Care Face to Face Continued: CMS Chapter 7 Medicare Benefits Manual 30.1.1 , The condition of the patient is such that there exists a normal inability to leave home and consequently, leaving home would require a considerable and taxing effort. Diet Recommendation: no restrictions on diet Diet Texture: Regular Texture Diet - Follow Up Care Current Providers and Referrals: Lj Matias MD [Medical Doctor] - follow up in 1 week Rupal Arraiga MD [Primary Care Provider] -
--- NOTE | 2017-02-08 14:13 | WOCRNPDOC ---
WOCRN Advanced Assessment Note - Skin Integrity Problem, Advanced Assess Lower Medial Abdomen Dressing Type: Black Vac Foam, Wound Vac Dressing Description: Intact Exudate Amount: Minimal Exudate Color: Reddish/Yellow Exudate Characteristic(s): Serosanguinous Integumentary Issue Intervention: Dressing Changed Fariha Wound Swelling: None Wound Bed Color: Red Wound Bed Constitution: Granulation Tissue, Undermining (1cm from 8-9 o'clock) Wound Edges: Well Defined Site Odor: None Site Measurement - Head-to-Toe Length X Width X Depth (cm): 10.8cm x 4.4cmx1.5cm Skin Integrity Problem Comment: Due to patient report of intense pain w/ previous NPWT dressing changes, order obtained for 4% topical Lidociane solution ; this was instilled using an 18 gauge needle through the vac drape and into the vac sponge, then allowed to take effect for 15 minutes. Lower midline abdominal wound w/ 100% granulation tissue, no apparent necrosis. Trimmed hair from fariha-wound skin to facilitate future dressing changes and to mitgate patient's pain. Wound cleansed w/ NS and gauze, and fraiha-wound skin prepped and draped, and wound repacked w/ 2 pieces of black vac foam. Settings resume at - 125mmHG, low, continuous suction. Patient has had a wound vac at home before, and is ready to DC from a wound care perspective w/ home care as soon as he is medically able. Report given to operations research director Linda.
--- NOTE | 2017-02-08 14:26 | ASMTCMCOM ---
CM Note CM Note Notes: Chart reviewed. Spoke to RN, patient's wound vac and supplies in room. Likely dc to home tomorrow with HC. Call to [facility] relaying discharge date of tomorrow likely. CM to follow should further needs arise. Date Signed: 02/08/2017 02:25 PM Electronically Signed By:Kerri Garcia RN
[2017-02-08 19:19] VITALS: RESP 18
[2017-02-08] MEDS: traZODone 100 MG TAB PO SCH (21:15)
[2017-02-09] MEDS: KETOROLAC 15 MG/1 ML SDV IVP SCH ×3 (01:11→12:37)
[2017-02-09] MEDS: D5W 1/2 NS 1,000 ML IV SCH (03:33)
[2017-02-09 08:29] VITALS: PULSE 83
[2017-02-09] MEDS: RIVAROXABAN 10 MG TAB PO SCH (09:11)
[2017-02-09 10:03] VITALS: BP 141/86; TEMP 98.6; O2SAT 96
[2017-02-09] MEDS: ERTAPENEM 1 GM in NS 100 ML IV SCH (10:12)
--- NOTE | 2017-02-09 11:50 | ASMTCMCOM ---
CM Note CM Note Notes: Pt. ready for d/c today. Met with Pt. and in room. Pt. and familiar with wound vac from the past and are ready to resume [facility] homecare. The family requests Jocelyn Faustin RN for lobsterman follow up since they have been working with her for a long time at [facility]. Confirmed w/ [facility] today that they will resume care tomorrow and Carin Analisa will initially see Pt. Carin states that she will get d/c paperwork off system in office. Date Signed: 02/09/2017 11:49 AM Electronically Signed By:Kalyn Tejada LCSW
--- NOTE | 2017-02-09 15:03 | ASDISCHSUM ---
Discharge Information Plan Status:Home with Home Health Medically Cleared to Leave: Discharge Date:02/09/2017 01:05 PM CM D/C Disposition:Home Health Service ADT D/C Disposition:Home Health Service Projected Discharge Date:02/09/2017 01:05 PM Transportation at D/C:Family Discharge Delay Reason: Follow-Up Date:02/09/2017 01:05 PM Discharge Slot: Final Diagnosis: Placement Information Patient Contact Information Contact Name:MED Relationship: Address:[address] City:[place] Phone: [facility]/Zip Code:[place] [address] Email: Financial Information Financial Class: Primary Plan Desc:MEDICARE INPATIENT Primary Plan Number:[id number] Secondary Plan Desc: OUT OF STATE [facility] Secondary Plan Number:[id number] Assessment Information [facility] CM Progress Note CM Note CM Note Notes: Pt has complicated past abd surg history. Had expl lap w/resection of fistula on 02/05, currently w/wound vac in place. Plan is to have wound vac change on saturday. He will likely dc home w/ when med stable. Per progress notes, pt has vac at home. He will need [facility] RN. Met w/pt to discuss; he has had [facility] (Jocelyn Faustin RN) in past and would like to use again. Notified Magy at [facility]. Also spoke w/Jocelyn who said they are happy to see him again as long as he can agree to be homebound as this became difficult in past. CM w/f. Date Signed: 02/06/2017 01:10 PM Electronically Signed By:Mildred Alan RN [facility] CM Progress Note CM Note CM Note Notes: Chart reviewed. Spoke to RN, patient's wound vac and supplies in room. Likely dc to home tomorrow with [facility]. Call to [facility] relaying discharge date of tomorrow likely. CM to follow should further needs arise. Date Signed: 02/08/2017 02:25 PM Electronically Signed By:Kerri Garcia RN [facility] CM Progress Note CM Note CM Note Notes: Pt. ready for d/c today. Met with Pt. and in room. Pt. and familiar with wound vac from the past and are ready to resume [facility] homecare. The family requests Jocelyn Faustin RN for long term care social worker follow up since they have been working with her for a long time at [facility]. Confirmed w/ [facility] today that they will resume care tomorrow and Carin Hauser will initially see Pt. Carin states that she will get d/c paperwork off system in office. Date Signed: 02/09/2017 11:49 AM Electronically Signed By:Kalyn Tejada LCSW Intervention Information
--- NOTE | 2017-02-13 05:33 | GOP ---
[f rep st] OPERATIVE REPORT DATE OF OPERATION: 02/05/2017 SURGEON: Lj Matias MD ACCESS REPRESENTATIVE: JONNA Winchester ANESTHESIOLOGIST: Dr. Vargas PREOPERATIVE DIAGNOSIS: Colocutaneous fistula status post perforated diverticulitis. POSTOPERATIVE DIAGNOSIS: PROCEDURE PERFORMED: Laparotomy with resection of colocutaneous fistula. FINDINGS: The patient was found to have a nonhealing abdominal wound. He had a diverting colostomy and a colocutaneous fistula arising from the rectal stump. There were some old sutures found in the area, and there was some evidence of an inguinal hernia mesh associated with the incision. It is unc lear if this could be a possible cause of the persistent fistula. ESTIMATED BLOOD LOSS: Less than 100 cc. DESCRIPTION OF PROCEDURE: Patient was taken to the operating room where he received satisfactory gen eral endotracheal anesthesia by Dr. Vargas, placed in a supine position, prepped and draped in usual sterile fashion. An elliptical skin incision was made to excise the midline abdominal wound. Dissec tion was then carried down through the fascia, and carefully down with electrocautery all the way corazon n into essentially the preperitoneal space. This tissue was followed all the way down to the rectal stump wall. At that point multiple sutures were removed. These appeared to be old sutures from the previous closure of the rectum. Some mesh was encountered in the inguinal area and this was resected as well. The entire specimen was removed out to the rectal stump and there was opening and communic ation there, and that was resected along with the fistula track. This was all sent to Pathology. Hemostasis was assured. A portion of the rectal stump was oversewn with a 2-0 Vicryl running suture and then imbricated with a second layer of 3-0 Vicryl interrupted sutures. A [address] hines was brought out through separate stab incision, and placed adjacent to the rectum. The fascia wa s then closed with a running #1 PDS suture, reinforced periodically with 0 Vicryl interrupted sutures , and the skin and subcutaneous tissue were left open, a wound VAC was placed on the incision. He to lerated procedure well, was taken to recovery room in satisfactory condition. There were no complica tions. /[id number]/MODL
== END 2017-02-09 13:05 | disposition home health service (06) | DRG 909 ==
LOC: F3E 10:06
PROVIDERS: ADMIT Surgery; ATTEND Surgery
DX: T81.83XA Persistent postprocedural fistula, initial encounter (principal); K60.4 Rectal fistula; Z93.3 Colostomy status; K90.0 Celiac disease; Z90.49 Acquired absence of other specified parts of digestive tract; Z23 Encounter for immunization
CPT/HCPCS: G0008; J0694; J1170; J1200; J1335; J1885; J2250; J2270; J2370; J2405; J2704; J2765; J2780; J3010

== ENCOUNTER → 2017-08-30 | Outpatient (CLI) | payer BC | LOC: FIMAGING 08:20 | PROVIDERS: ATTEND Surgery | DX: Z43.3 Encounter for attention to colostomy (principal) ==

== ENCOUNTER 2017-10-29 08:53 | Inpatient (IN) | payer BC, OTHER ==
[2017-10-29] MEDS ORDERED: LIDOCAINE 1% 2 ML INJ ID PRN (09:15)
[2017-10-29] MEDS ORDERED: LR 1,000 ML IV ONE (09:15)
[2017-10-29] MEDS ORDERED: cefOXitin SODIUM 2 GM in NS 100 ML IV ONE (09:47)
[2017-10-29 10:14] LABS: PLATELET COUNT 190 10^3/uL (150-400)
[2017-10-29] MEDS ORDERED: MIDAZOLAM 2 MG/2 ML VIAL IVP ONE (10:40)
[2017-10-29] MEDS ORDERED: BUPIVACAINE 0.25% 30 ML SDV ONE ×4 (10:53→14:32)
[2017-10-29] MEDS ORDERED: fentaNYL 100 MCG/2 ML INJ ONE ×2 (10:56→15:45)
[2017-10-29] MEDS ORDERED: PROPOFOL/EMULSION 500 MG/50 ML BOTTLE IV ONE ×2 (10:56→12:58)
[2017-10-29] MEDS ORDERED: morphINE PF 5 MG/10 ML INJ ONE (10:59)
[2017-10-29] MEDS ORDERED: ROCURONIUM 100 MG/10 ML VIAL ONE (11:00)
[2017-10-29] MEDS ORDERED: KETOROLAC 30 MG/1 ML SDV ONE (11:00)
[2017-10-29] MEDS ORDERED: ONDANSETRON 4 MG/2 ML VIAL ONE (11:00)
[2017-10-29] MEDS ORDERED: DEXAMETHASONE 4 MG/ML VIAL ONE ×2 (11:00)
[2017-10-29] MEDS ORDERED: LIDOCAINE HCL 160 MG/4 ML LTA KIT TP ONE (11:19)
[2017-10-29] MEDS ORDERED: PHENYLEPHRINE HCL 100 MCG/ML SYR ONE (11:46)
--- NOTE | 2017-10-29 12:20 | PDANEPAE ---
ANE History of Present Illness ex lap for 1) colostomy takedown 2) temporary ileostomy 3) ventral hernia repair s/p colostomy and repeat surgery for diverticulitis ANE Past Medical History - Cardiovascular History Hx Hypertension: No Hx Arrhythmias: No Hx Chest Pain: No Hx Coronary Artery / Peripheral Vascular Disease: No Hx CHF / Valvular Disease: No Hx Palpitations: No - Pulmonary History Hx COPD: No Hx Asthma/Reactive Airway Disease: No Hx Recent Upper Respiratory Infection: No Hx Oxygen in Use at Home: No Hx Sleep Apnea: No Sleep Apnea Screening Result - Last Documented: Negative - Neurologic History Hx Cerebrovascular Accident: No Hx Seizures: No Hx Dementia: No Neurologic History Comment: PREV BACK SURGERY X3 L4/L5. CURRENT MUSCLULAR PAIN -LOW BACK - Endocrine History Hx Diabetes: No - Renal History Hx Renal Disorders: No - Liver History Hx Hepatic Disorders: No Hepatic History Comment: SMALL CLOT FOUND - SPLEEN. TREATED W/ COUMADIN-WAS D/C' D. - Neurological & Psychiatric Hx Hx Neurological and Psychiatric Disorders: No - Cancer History Hx Cancer: No - Congenital Disorder History Hx Congenital Disorders: No - GI History Hx Gastrointestinal Disorders: Yes Gastrointestinal History Comment: COLOSTOMY. CELIAC DX. HX OF DIVERTICULITIS. HX OF COLON RESECTION REMOVAL OF 14 INCHES - Other Health History Other Health History: WEARS GLASSES - Chronic Pain History Chronic Pain: No - Surgical History Prior Surgeries: 02-05-17 LAPAROTOMY, ABD WALL FISTULA W/COLOSTOMY. 2016FLEX SIG W/EXP LAP,FISTULECTOMY. LAPAROTOMY WITH ANASTOMOTIC LEAK RECREATION OF COLOSTOMY WOUND VAC RELATED TO N 08/2016. COLOSTOMY TAKE DOWN 2016. LAP, COLON RESECTION, COLOSTOMY . EGD/ COLONOSCOPY 03/2016. BACK SURGERY X3 L4-5. BILATERAL HERNIA REPAIR. LEFT ELBOW ORIF ANE Review of Systems Review of Systems: - Exercise capacity METS (RN): 4 METS ANE Patient History - Allergies Allergies/Adverse Reactions: gluten Allergy (Severe, Verified 10/14/17 15:31) Other-Enter Comments codeine Allergy (Verified 10/14/17 15:49) Itching Opioids - Morphine Analogues Allergy (Verified 10/14/17 15:49) Itching - Home Medications Home medications: home medication list seen and reviewed Home Medications: traZODone [traZODONE 100MG (*)] 50 - 100 mg PO HS PRN 03/27/16 [Last Taken 10/26] Herbals/Supplements -Info Only 1 ea PO DAILY 02/04/17 [Last Taken 10/21/17] Cyclobenzaprine [Flexeril 10 MG (*)] 10 mg PO HS PRN 10/09/17 [Last Taken ] Multivitamins [Multivitamin (*)] 1 each PO DAILY 10/09/17 [Last Taken 10/21/17] - NPO status NPO Status: no food or drink >8 hours NPO Since - Liquids (Date): 09/27/17 NPO Since - Liquids (Time): 22:00 NPO Since - Solids (Date): 10/27/17 NPO Since - Solids (Time): 19:20 - Anes Hx Anes Hx: no prior problems - Smoking Hx Smoking Status: Former smoker - Alcohol Use Alcohol Use: Occasionally - Family Anes Hx Family Anes Hx: none Family Hx Anesthesia Complications: NONE ANE Labs/Vital Signs - Labs Result Diagrams: 10/29/17 09:48 - Vital Signs Blood Pressure: 128/91 Heart Rate: 82 Respiratory Rate: 15 O2 Sat (%): 95 Height: 175.26 cm Weight: 78.018 kg ANE Physical Exam - Airway Neck exam: FROM Mallampati Score: Class 2 Mouth exam: normal dental/mouth exam - Pulmonary Pulmonary: no respiratory distress - Cardiovascular Cardiovascular: regular rate and rhythym - ASA Status ASA Status: II ANE Anesthesia Plan Anesthesia Plan: general endotracheal anesthesia, spinal (intrathecal morphine PSR) Regional Anesthesia: POPC/PSR Urgent/Emergent Case: Walter alonzo completed preop but documented later for safe timely pt care
--- NOTE | 2017-10-29 14:36 | POSTOPPROG ---
Post Op Note Date of Operation: 10/29/17 Surgeon: Noe Osborne Looper Fixer: Joann Aguayo Anesthesiologist: Jared Soliman MD Anesthesia: GET(General Endotracheal) Pre-op Diagnosis: diverticulitis, ventral hernia Post-op Diagnosis: same Procedure: Colostomy takedown, coloproctostomy w ileostomy, retrorectus hernia rep Findings: side to end coloproctostomy, incisional hernirepaired with Strattice Inf/Abcess present in the surg proc area at time of surgery?: Yes Depth: Organ Space EBL: 50-100 Complications: none Drains: Darron Rico (L subcutaneous) Specimen(s): Colostomy, proximal rectum, skin flap
[2017-10-29] MEDS ORDERED: fentaNYL 100 MCG/2 ML INJ IVP PRN (14:38)
[2017-10-29] MEDS ORDERED: NALOXONE HCL 0.4 MG/ML INJ IVP PRN (14:38)
[2017-10-29] MEDS ORDERED: ALBUTEROL 3 ML DEYVIAL IH PRN (14:38)
[2017-10-29] MEDS ORDERED: LR 500 ML IV PRN (14:38)
[2017-10-29] MEDS ORDERED: DEXAMETHASONE 4 MG/ML VIAL IVP PRN (14:38)
[2017-10-29] MEDS ORDERED: METOCLOPRAMIDE 10 MG/2 ML VIAL IVP PRN (14:38)
[2017-10-29] MEDS ORDERED: PROMETHAZINE HCL 25 MG/ML INJ IVP PRN (14:38)
[2017-10-29] MEDS ORDERED: MEPERIDINE 25 MG/0.5 ML AMP IVP PRN (14:38)
[2017-10-29] MEDS ORDERED: PHENYLEPHRINE HCL 100 MCG/ML SYR IVP PRN (14:38)
[2017-10-29] MEDS ORDERED: ONDANSETRON 4 MG/2 ML VIAL IVP PRN (14:38)
[2017-10-29] MEDS ORDERED: LABETALOL HCL 5 MG/ML 20 ML MDV IVP PRN (14:38)
[2017-10-29] MEDS ORDERED: HYDROmorphONE/DILAUDID 1 MG/ML INJ IVP PRN ×2 (14:38→14:40)
[2017-10-29] MEDS ORDERED: HYDROCODONE/APAP 5/325 TAB PO PRN ×2 (14:38→14:40)
[2017-10-29] MEDS ORDERED: oxyCODONE IR 5 MG TAB PO PRN (14:38)
[2017-10-29] MEDS ORDERED: traZODone 100 MG TAB PO PRN (14:42)
[2017-10-29] MEDS ORDERED: CYCLOBENZAPRINE 10 MG TAB PO PRN (14:42)
[2017-10-29] MEDS: D5W 1/2 NS W/ 20 KCl/L 1,000 ML IV SCH (17:00)
[2017-10-29] MEDS: KETOROLAC 15 MG/1 ML SDV IVP SCH ×2 (17:00→23:33)
[2017-10-29] MEDS: cefOXitin SODIUM 1 GM in NS 50 ML IV SCH ×2 (17:00→23:33)
--- NOTE | 2017-10-29 17:08 | PDMN ---
Medical Necessity Medical necessity: [id number], Bowel Surgery: Colectomy, Partial, with or without Ostomy, 4 days, inpt only: colostomy takedown, coloproctostomy w/ileostomy, retrorectus hernia repair
--- NOTE | 2017-10-29 20:27 | GOP ---
[f rep st] OPERATIVE REPORT DATE OF OPERATION: 10/29/2017 SURGEON: Noe Osborne MD FIELD ASSESSOR: Nadir Quinn MD ANESTHESIA: General with spinal. ANESTHESIOLOGIST: Dr. Soliman. PREOPERATIVE DIAGNOSIS: Recurrent diverticulitis. POSTOPERATIVE DIAGNOSIS: Recurrent diverticulitis. PROCEDURE PERFORMED: 1. Colostomy reversal with partial colectomy and low anterior pelvic reanastomosis. 2. Loop ileostomy creation. 3. Complex incisional hernia repair with mesh. 4. Bilateral abdominal wall component separation with Strattice placement. 5. Dermolipectomy. FINDINGS: See below. INDICATIONS: 67-year-old male with a history of recurrent diverticulitis. He underwent a prior resection, which had been complicated by multiple anastomotic leaks, pelvic abscess formation, enterocutaneous fistulae, as well as others. He presents with a Donald's type anatomy today for colostomy reversal. Surgical risks and benefits were explained to him in detail, including but not limited to bleeding, infection, anastomotic re-leakage, recurrent diverticulitis , ureter injury, bowel injury, heightened risk for hernia recurrence, as well as others. All questions were answered. He desires to proceed. DESCRIPTION OF PROCEDURE: General anesthesia was induced. The prior midline laparotomy skin was excised and the fascia reopened. There were multiple jordanian cheese defects throughout the entire abdominal wall. Abdominal wall adhesions were all lysed out to bilateral pericolic gutters. The colostomy was circularly excised at the level of the skin. There was an extremely large parastomal defect. The colon was reduced back in the abdominal cavity and the sac completely excised back to fascial edges. This defect measured approximately 10 to 15 cm in diameter and was near abutting the midline jordanian cheese fascial defects. Having completed the abdominal adhesiolysis and colostomy takedown, the rectal stump was next dissected away from the pelvis. The stump was configured in a candy-cane fashion. The proximal stapled end was extremely thickened and fibrotic consistent with the preoperative imaging study showed showing no contrast filling of the distal segment. There was a significant portion of a residual rectum noted within the abdominal cavity that was able to be away from the pelvis and elevated up into the operative field. The thickened segment was transected back to a healthy- appearance of usable rectum. A 25 dilator was easily passed into the unused rectum showing nice stretching without concern for stenosis. The left ureter was identified and preserved throughout prior to completion of this portion of the dissection. The end portion of the colon was transected with a GI 75 stapler. The colon was brought easily down into the pelvis. An end-to-side hand-sewn anastomosis was created in 2 layers with PDS suture. Excellent patency was established. Attention was subsequently directed to the abdominal wall re-closure. A retrorectus component separation was completed bilaterally. The retrorectus space was entered and taken all the way out toward the oblique musculature on both sides. The large parastomal hernia created a challenge in reconstructing this location. This was done by closing that defect transversely and allowing for the midline fascia to be closed vertically with a running PDS suture. The left oblique musculature had been repositioned to the right rectus midline centrally where there was a large tissue void from the parastomal hernia defect. Prior to closure, a small skin bridge had been created within the right lower quadrant to the preoperatively chosen site for the protective loop ileostomy. This was brought prior to the fascial closure. A 16 cm Strattice mesh was secured within the retrorectus space. The fascia was reapproximated with a running PDS suture. The wound was closed in layers with Vicryl suture and skin aaliyah over a 10 flat Darron-Rico drain. The ileum had been brought up and placed upon a T-bar and was subsequently matured after the skin was reclosed. The stoma was matured with multiple interrupted chromic sutures. The patient was extubated in the operating room and taken to Recovery uneventfully. /[id number]/MODL MTDD
[2017-10-30] MEDS ORDERED: ACETAMINOPHEN 325 MG TAB PO PRN (00:45)
[2017-10-30] MEDS: D5W 1/2 NS W/ 20 KCl/L 1,000 ML IV SCH ×2 (00:53→14:41)
[2017-10-30] MEDS: ACETAMINOPHEN 500 MG TAB PO PRN ×4 (00:54→20:23)
[2017-10-30] MEDS: KETOROLAC 15 MG/1 ML SDV IVP SCH ×4 (05:13→23:45)
[2017-10-30] MEDS: cefOXitin SODIUM 1 GM in NS 50 ML IV SCH (05:16)
[2017-10-30] MEDS ORDERED: NS 1,000 ML IV ONE (06:00)
--- NOTE | 2017-10-30 06:57 | POSTANESTH ---
Post Anesthetic Evaluation Cardiovascular Status: Normal, Stable Respiratory Status: Tx Decrease in SpO2 Level of Consciousness/Mental Status: Can Participate in Eval Pain Control: Adequate, Prn Tx Ordered Nausea/Vomiting Control: Adequate, Prn Tx Ordered Complications Possibly Related to Anesthesia: None Noted
--- NOTE | 2017-10-30 08:02 | SOAPPROG ---
SOAP Progress Note Assessment/Plan: Assessment: Colostomy reversal with low anterior pelvic reanastomosis and loop ileostomy creation POD#1. Overall doing very well. His complaints of itching are related to his opioid allergy, which he admits having this issue in the past. Discussed expectation of pain increasing after spinal wears off. May need to start weening off dilaudid if pain well managed in order to address the itching. Remove wilkes cath. Clear diet today. Hypotension likely d/t post surgical hypovolemia- improving with saline bolus Plan: 10/30/17 08:08 10/30/17 12:55 Subjective: Doing well. Little sleep overnight d/t itching and surrounding noise. Pain is 1- 2 when in bed, 3-4 when walking. Has been ambulating in the diaz with no complaints. Ileostomy and MIREYA with red drainage. Tolerating clear fluids okay, some nausea with broth. No emesis or bloating. BPs in 80s systolic overnight. Not lightheaded or dizzy. Objective: Vital Signs Temp Pulse Resp BP Pulse Ox 37.2 C 90 18 89/57 L 92 10/30/17 07:21 10/30/17 07:21 10/30/17 07:21 10/30/17 07:21 10/30/17 07:21 Laboratory Results 10/30/17 05:02 10/30/17 05:02 10/29/17 10/30/17 10/31/17 05:59 05:59 05:59 Intake Total 1080 Output Total 400 460 Balance 680 -460 Physical Exam: Gen: alert and oriented, appears comfortable, afebrile HEENT: normal, anicteric Skin: normal Heart: RRR Lungs: CTA bilateral Abdomen: soft, mild diffuse tenderness, appropriately distended. Incisions clean without erythema. MIREYA drain in place- serosanguinous, 235 out overnight. Ileostomy pink and productive, mostly bloody drainage. : wilkes catheter in place, 460 urine output overnight Extremities: no edema Neuro: nonfocal ICD10 Worksheet Patient Problems: Problems Problem Status Onset Anastomotic leak of intestine Acute Complication of colostomy Acute Diverticulitis large intestine Acute Incisional abscess Acute
[2017-10-30] MEDS ORDERED: diphenhydrAMINE 25 MG CAP PO PRN (09:18)
--- NOTE | 2017-10-30 14:19 | ASMTCMCOM ---
CM Note CM Note Notes: Spoke w/RN, anticipate pt will dc home w/support of when medically stable. CM available for any changes. DC Plan: Independent Date Signed: 10/30/2017 02:18 PM Electronically Signed By:Lina Mcdonald RN
[2017-10-31] MEDS: KETOROLAC 15 MG/1 ML SDV IVP SCH ×3 (05:32→17:45)
[2017-10-31] MEDS: ACETAMINOPHEN 500 MG TAB PO PRN (08:50)
[2017-10-31] MEDS: ONDANSETRON 4 MG/2 ML VIAL IVP PRN ×2 (10:19→15:07)
[2017-10-31] MEDS ORDERED: ONDANSETRON DISINTEGRATING 4 MG TAB ONE (10:32)
[2017-10-31] MEDS ORDERED: ONDANSETRON DISINTEGRATING 4 MG TAB PO ONE (10:45)
--- NOTE | 2017-10-31 11:31 | ASMTCMCOM ---
CM Note CM Note Notes: Pt is post-op day 2 colostomy reversal, loop ileostomy creation. Plan is for pt to dc home w/. Attempted to meet w/him to discuss but he was too sleepy and asked that CM come back later. Will need to determine if he will need supplies at home for new ileostomy and if he will need more education to care for this. Discussed w/RN who will talk with wound care nurse today to discuss. CM will follow. Date Signed: 10/31/2017 11:31 AM Electronically Signed By:Mildred Alan RN
[2017-10-31] MEDS ORDERED: PROMETHAZINE HCL 25 MG/ML INJ IVP PRN (17:08)
[2017-10-31] MEDS: D5W 1/2 NS W/ 20 KCl/L 1,000 ML IV SCH (17:16)
--- NOTE | 2017-10-31 17:57 | SOAPPROG ---
SOAP Progress Note Assessment/Plan: Assessment:rougher night. nausea today. no emesis yet. small stoma output. pain well controlled. afebrile. P 110's. comfortable. abd dist, soft. no splash. MIREYA thin sang. stoma pink. pod#2 s/p colostomy reversal, loop ileostomy, complex abd wall reconstruction. expected ileus. restart IVF. diet as able. cont ambulation. supportive care. Plan: 10/31/17 17:55 Objective: Vital Signs Temp Pulse Resp BP Pulse Ox 37.4 C 117 H 14 145/100 H 95 10/31/17 16:00 10/31/17 16:00 10/31/17 16:00 10/31/17 16:00 10/31/17 16:00 Laboratory Results 10/30/17 05:02 10/30/17 05:02 10/30/17 10/31/17 11/01/17 05:59 05:59 05:59 Intake Total 1080 1910 Output Total 400 7211 Balance 680 -565 ICD10 Worksheet Patient Problems: Problems Problem Status Onset Anastomotic leak of intestine Acute Complication of colostomy Acute Diverticulitis large intestine Acute Incisional abscess Acute
[2017-10-31] MEDS ORDERED: METOCLOPRAMIDE 10 MG/2 ML VIAL IVP PRN (20:20)
[2017-10-31] MEDS ORDERED: SIMETHICONE 80 MG TAB CHEW PO PRN (21:00)
[2017-10-31] MEDS: FAMOTIDINE 20 MG/NACL 50 ML IV PRN (21:01)
[2017-11-01] MEDS: KETOROLAC 15 MG/1 ML SDV IVP SCH ×5 (00:07→23:17)
[2017-11-01] MEDS: D5W 1/2 NS W/ 20 KCl/L 1,000 ML IV SCH (00:07)
[2017-11-01] MEDS: ACETAMINOPHEN 500 MG TAB PO PRN ×2 (10:29→20:44)
--- NOTE | 2017-11-01 18:25 | SOAPPROG ---
SOAP Progress Note Assessment/Plan: Assessment: Colostomy reversal with low anterior pelvic reanastomosis and loop ileostomy creation POD#3. Doing very well. Pain well managed, not complaining of itching today. Ileostomy appliance replaced today, education provided to patient and his . Hopeful d/c tomorrow if continues to do well. Post operative ileus- still some nausea today, continue with regular diet as tolerated, adequate PO fluid intake. Discussed expected course with patient and family. Plan: 10/30/17 08:08 11/01/17 18:28 Subjective: Doing very well. Minimal abdominal pain. Less nausea than yesterday, tolerating fluids and small amounts regular diet. Ileostomy with stool- bag and appliance changed today during visit. Ambulating in room and halls without concern. Objective: Vital Signs Temp Pulse Resp BP Pulse Ox 36.8 C 106 H 16 165/93 H 95 11/01/17 16:00 11/01/17 16:00 11/01/17 16:00 11/01/17 16:00 11/01/17 16:00 Laboratory Results 10/30/17 05:02 10/30/17 05:02 10/31/17 11/01/17 11/02/17 05:59 05:59 05:59 Intake Total 1910 500 250 Output Total 2475 200 350 Balance -565 300 -100 Physical Exam: Gen: A&O x3, appears comfortable afebrile HEENT: anicteric Skin: normal Abdomen: soft, appropriately distended, minimal diffuse tenderness. Incisions clean without erythema, drainage, or hernia. Ileostomy in place, pink and productive of stool and gas. MIREYA drain with serosanguinous fluid. Extremities: unremarkable, no edema Neuro: nonfocal ICD10 Worksheet Patient Problems: Problems Problem Status Onset Anastomotic leak of intestine Acute Complication of colostomy Acute Diverticulitis large intestine Acute Incisional abscess Acute
[2017-11-01] MEDS: FAMOTIDINE 20 MG/NACL 50 ML IV PRN (20:41)
[2017-11-02] MEDS: KETOROLAC 15 MG/1 ML SDV IVP SCH (05:29)
[2017-11-02 07:27] VITALS: BP 149/107
--- NOTE | 2017-11-02 07:32 | PDIAF ---
- Diagnosis Diagnosis: diverticulitis` Code Status: Full Code - Medication Management Discharge Medications: Medications to Continue on Transfer RX: traZODone [traZODONE 100MG (*)] 50 - 100 mg PO HS PRN 03/27/16 [Last Taken 10/26/17] RX: Herbals/Supplements -Info Only 1 ea PO DAILY 02/04/17 [Last Taken 10/21/17] RX: Cyclobenzaprine [Flexeril 10 MG (*)] 10 mg PO HS PRN 10/09/17 [Last Taken ] RX: Multivitamins [Multivitamin (*)] 1 each PO DAILY 10/09/17 [Last Taken ] RX: Acetaminophen [Tylenol ES 500 mg (*)] 500 - 1,000 mg PO Q4HRS PRN tab 11/02 [Last Taken Unknown] Discharge Medications: Refer to the Discharge Home Medication list for PRN reason. PICC Care - Routine: N/A - Orders Services needed: Home Care, Registered Nurse Home Care Face to Face: I certify that this patient was under my care and that I had the required [id number] encounter meeting the encounter requirements on the discharge day. My findings support the fact that the patient is homebound as defined in Home Care Face to Face Continued: CMS Chapter 7 Medicare Benefits Manual 30.1.1 , The condition of the patient is such that there exists a normal inability to leave home and consequently, leaving home would require a considerable and taxing effort. Isolation Type: None Diet Recommendation: no restrictions on diet Diet Texture: Regular Texture Diet Wound Care Instructions: strip shaw 3x daily. routine ostomy care. shower, soap, water Sutures/[place] Site: in office Activity/Weight Bearing Restrictions: no lifting >30 pounds Equipment: ostomy supplies Additional Instructions: f/u 1 wk - call for appt. strip SHAW 3x daily. shower, soap, water prn. call for fevers, chills, wound concerns, drain concerns, stoma concerns, or any other concerns. no lifting >30 pounds. no driving until pain free. no diet restrictions. maintain BP log at home. - Follow Up Care Current Providers and Referrals: Noe Osborne MD [Medical Doctor] - follow up in 1 week
--- NOTE | 2017-11-02 08:11 | GDS ---
[f rep st] DISCHARGE SUMMARY REASON FOR ADMISSION: Diverticulitis. HOSPITAL COURSE: 67-year-old male admitted for a colostomy takedown, status post prior complicated post diverticular course. He underwent a colostomy reversal with hand-sewn end-to-side colorectal anastomosis, complex ventral hernia repair with Strattice mesh placement and diverting loop ileostomy placement. He had a benign postoperative course. He was discharged to home on postop day #4 in good condition, tolerating a regular diet, ambulating in the halls independently, not requiring any further oral analgesics. He will be seen in followup by Dr. Osborne in 1 week. His stoma bridge and drain will be removed at that time. He is to resume all pre-hospital medications. He will maintain a blood pressure log given his persistent postoperative hypertension, ranging in the 150 to 90s. Home care nurse will be arranged for stoma assistance. Full instructions were explained prior to leaving. /[id number]/MODL MTDD
[2017-11-02] MEDS: ONDANSETRON 4 MG/2 ML VIAL IVP PRN (09:34)
--- NOTE | 2017-11-02 11:07 | ASMTLACE ---
LUDMILA Length of stay for Answers: 3 days current admission Acuity / Level of Answers: Yes Care: Did the patient have an inpatient admission? # of Emergency department Answers: 0 visits in the last 6 months Score: 6 Date Signed: 11/02/2017 11:07 AM Electronically Signed By:Lina Mcdonald RN
--- NOTE | 2017-11-02 11:09 | ASMTCMCOM ---
CM Note CM Note Notes: Spoke w/RN and pt, would like home health RN for new ileostomy care. Pt has used [facility] in the past, CM spoke w/nutrition representative RN August and they can accept pt. DC Plan: Home care/[facility] (RN) Date Signed: 11/02/2017 11:08 AM Electronically Signed By:Lina Mcdonald RN
--- NOTE | 2017-11-02 11:17 | ASMTDCNOTE ---
Case Management Discharge Discharge Order Complete? Answers: Yes Patient to Obtain Answers: Independently Medications Transportation Arranged Answers: Family/Friends Faxed Final Orders Answers: Yes Family Notified Answers: Yes Discharge Comments Notes: D/w RN, final orders faxed. RN to call report, [facility] notified. Date Signed: 11/02/2017 11:16 AM Electronically Signed By:Lina Mcdonald RN
--- NOTE | 2017-11-02 17:24 | ASDISCHSUM ---
Discharge Information Plan Status:Home with Home Health Medically Cleared to Leave: Discharge Date:11/02/2017 11:03 AM D/C Disposition:Home Health Service ADT D/C Disposition:Home, Routine, Self-Care Projected Discharge Date:11/02/2017 11:00 AM Transportation at D/C:Family Discharge Delay Reason: Follow-Up Date:11/02/2017 11:00 AM Discharge Slot: Final Diagnosis: Placement Information Referral Type:*Home Health Care Services Referral ID:[id number] Provider Name:[facility] Address 1:[address] [place] [address] Address 2: City:[place] Selection Factors: State:[place] Patient Contact Information Contact Name:ELINALAUREANO Relationship: Address:[address] City:[place] Phone: State/Zip Code:[place] [address] Email: Financial Information Financial Class:HMO and PPO Plans Primary Plan Desc: OUT OF STATE PPO Primary Plan Number:[id number] Secondary Plan Desc:MEDICARE INPATIENT Secondary Plan Number:[id number] Assessment Information [facility] Progress Note CM Note CM Note Notes: Spoke w/RN, anticipate pt will dc home w/support of when medically stable. CM available for any changes. DC Plan: Independent Date Signed: 10/30/2017 02:18 PM Electronically Signed By:Lina Mcdonald RN LUDMILA LUDMILA Length of stay for Answers: 3 days current admission Acuity / Level of Answers: Yes Care: Did the patient have an inpatient admission? # of Emergency department Answers: 0 visits in the last 6 months Score: 6 Date Signed: 11/02/2017 11:07 AM Electronically Signed By:Lina Mcdonald RN [facility] CM Progress Note CM Note CM Note Notes: Pt is post-op day 2 colostomy reversal, loop ileostomy creation. Plan is for pt to dc home w/. Attempted to meet w/him to discuss but he was too sleepy and asked that CM come back later. Will need to determine if he will need supplies at home for new ileostomy and if he will need more education to care for this. Discussed w/RN who will talk with wound care nurse today to discuss. CM will follow. Date Signed: 10/31/2017 11:31 AM Electronically Signed By:Mildred Alan RN [facility] CM Progress Note CM Note CM Note Notes: Spoke w/RN and pt, would like home health RN for new ileostomy care. Pt has used [facility] in the past, CM spoke w/crop nutrition scientist RANDEE August and they can accept pt. DC Plan: Home care/[facility] (RN) Date Signed: 11/02/2017 11:08 AM Electronically Signed By:Lina Mcdonald RN Case Management Discharge Plan Note Case Management Discharge Discharge Order Complete? Answers: Yes Patient to Obtain Answers: Independently Medications Transportation Arranged Answers: Family/Friends Faxed Final Orders Answers: Yes Family Notified Answers: Yes Discharge Comments Notes: D/w RN, final orders faxed. RN to call report, [facility] notified. Date Signed: 11/02/2017 11:16 AM Electronically Signed By:Lina Mcdonald RN Intervention Information
== END 2017-11-02 11:03 | disposition home or self-care (01) | DRG 331 ==
LOC: F3E 08:53
PROVIDERS: ADMIT Surgery; ATTEND Surgery
DX: K57.30 Diverticulosis of large intestine without perforation or abscess without bleeding (principal); K43.2 Incisional hernia without obstruction or gangrene; Z90.49 Acquired absence of other specified parts of digestive tract; I95.81 Postprocedural hypotension; E86.1 Hypovolemia
CPT/HCPCS: J0694; J1100; J1170; J1200; J1885; J2250; J2274; J2370; J2405; J2550; J2704; J2765; J3010; Q4130

== ENCOUNTER 2017-11-03 19:48 | Inpatient (IN) | payer BC, OTHER ==
[2017-11-03] MEDS ORDERED: NS 1,000 ML IV ONE (20:03)
[2017-11-03] MEDS ORDERED: ONDANSETRON 4 MG/2 ML VIAL IVP ONE (20:03)
[2017-11-03 20:22] LABS: PLATELET COUNT 303 10^3/uL (150-400)
--- NOTE | 2017-11-03 20:27 | EDPHY ---
H & P Stated Complaint: [place], [place] earlier this week Time Seen by Provider: 11/03/17 20:16 HPI/ROS: CHIEF COMPLAINT: Persistent vomiting HISTORY OF PRESENT ILLNESS: 67-year-old male 4 days status post colostomy takedown, ventral hernia repair and ileostomy presents with persistent vomiting. He was discharged from the hospital yesterday, tolerating oral fluids. Once he arrived home, he developed recurrent vomiting. With any oral intake, he almost immediately developed nausea and then epigastric discomfort, followed by vomiting. Zofran and Phenergan at home without relief. No fever. No change in postoperative abdominal pain. REVIEW OF SYSTEMS: complete 10 point ROS negative except at noted in the HPI - Personal History Current Tetanus Diphtheria and Acellular Pertussis (TDAP): Yes Tetanus Vaccine Date: < 10 YRS - Medical/Surgical History Hx Asthma: No Hx Chronic Respiratory Disease: No Hx Diabetes: No Hx Cardiac Disease: No Hx Renal Disease: No Hx Cirrhosis: No Hx Alcoholism: No Hx HIV/AIDS: No Hx Splenectomy or Spleen Trauma: No Other PMH: orthopedic surgeries. leg wound w/mrsa 2013. celiac disease. diverticulitis w/colectomy and colostomy placement 03/2016. colostomy reversal 07/2016. postop wound dehiscence w/stool in abdomen 08/2016. 10/2017- hernia repair, illiostomy, cholostomy take down - Social History Smoking Status: Former smoker - Physical Exam Exam: General Appearance: Alert, pleasant, appears uncomfortable Eyes: Pupils equal and round, no conjunctival pallor or injection ENT, Mouth: Mucous membranes moist Neck: Normal inspection Respiratory: Lungs are clear to auscultation Cardiovascular: Regular rate and rhythm Gastrointestinal: Abdomen is distended, surgical incision is clean dry and intact, ostomy and MIREYA drain sites are clean, without drainage Neurological: A&O, nonfocal exam Skin: Warm and dry Extremities: Normal inspection Psychiatric: Mood and affect normal Constitutional: Initial Vital Signs Temperature (C) 36.5 C 11/03/17 19:58 Heart Rate 105 H 11/03/17 19:58 Respiratory Rate 18 11/03/17 19:58 Blood Pressure 153/91 H 11/03/17 19:58 O2 Sat (%) 96 11/03/17 19:58 O2 Delivery Mode Room Air Allergies/Adverse Reactions: gluten Allergy (Severe, Verified 10/14/17 15:31) Other-Enter Comments codeine Allergy (Verified 10/14/17 15:49) Itching Opioids - Morphine Analogues Allergy (Verified 10/14/17 15:49) Itching Home Medications: Medication Instructions Recorded traZODone [traZODONE 100MG (*)] 50 - 100 mg PO HS PRN 03/27/16 Herbals/Supplements -Info Only 1 ea PO DAILY 02/04/17 Cyclobenzaprine [Flexeril 10 MG 10 mg PO HS PRN 10/09/17 (*)] Multivitamins [Multivitamin (*)] 1 each PO DAILY 10/09/17 Acetaminophen [Tylenol ES 500 mg 500 - 1,000 mg PO Q4HRS PRN tab 11/02/17 (*)] Promethazine HCl [Phenergan 12.5mg 12.5 mg PO Q4 PRN 11/03/17 tab] Medical Decision Making ED Course/Re-evaluation: IV normal saline 1 L and Zofran [address] Noe Osborne was consulted and will admit the patient for postoperative vomiting. Continues to have significant nausea after IV Zofran. Reglan 10 mg IV given. Better after IV Reglan. Abdominal exam remains benign. Clinical presentation consistent with postop ileus. Differential Diagnosis: Differential diagnosis includes though it is not limited to appendicitis, cholecystitis, diverticulitis, pyelonephritis, bowel perforation, small bowel obstruction. - Data Points Laboratory Results: Laboratory Results 11/03/17 20:05 11/03/17 20:05 11/03/17 11/03/17 20:05 20:05 WBC 10.65 10^3/uL H 10^3/uL (3.80-9.50) RBC 4.56 10^6/uL 10^6/uL (4.40-6.38) Hgb 15.0 g/dL g/dL (13.7-17.5) Hct 42.9 % % (40.0-51.0) MCV 94.1 fL fL (81.5-99.8) MCH 32.9 pg pg (27.9-34.1) MCHC 35.0 g/dL g/dL (32.4-36.7) RDW 12.9 % % (11.5-15.2) Plt Count 303 10^3/uL 10^3/uL (150-400) MPV 9.0 fL fL (8.7-11.7) Neut % (Auto) Not Reported Lymph % (Auto) Not Reported [place] % (Auto) Not Reported Eos % (Auto) Not Reported Baso % (Auto) Not Reported Nucleat RBC Rel Count Not Reported Absolute Neuts (auto) Not Reported Absolute Lymphs (auto) Not Reported Absolute Monos (auto) Not Reported Absolute Eos (auto) Not Reported Absolute Basos (auto) Not Reported Absolute Nucleated RBC Not Reported Immature Gran % Not Reported Seg Neutrophils % 89.0 % % Band Neutrophils % 0 % % Lymphocytes % 4.0 % % Monocytes % 6.0 % % Eosinophils % 0 % % Basophils % 1.0 % % Metamyelocytes % 0 % % Myelocytes % 0 % % Promyelocytes % 0 % % Blast Cells % 0 % % Immature Gran # Not Reported Absolute Seg Neuts 9.48 10^/uL H 10^/uL (1.70-6.50) Absolute Band Neuts 0.00 10^3/uL 10^3/uL (0.00-0.70) Absolute Lymphocytes 0.43 10^3/uL L 10^3/uL (1.00-3.00) Absolute Monocytes 0.64 10^3/uL 10^3/uL (0.30-0.80) Absolute Eosinophils 0.00 10^3/uL L 10^3/uL (0.03-0.40) Absolute Basophils 0.11 10^3/uL H 10^3/uL (0.02-0.10) Absolute Metamyelocyte 0.00 10^3/mL 10^3/mL (0.00-0.00) Absolute Myelocytes 0.00 10^3/mL 10^3/mL (0.00-0.00) Absolute Promyelocytes 0.00 10^3/uL 10^3/uL (0.00-0.00) Absolute Plasma Cells 0.00 10^3/uL 10^3/uL (0.00-0.00) Absolute Blast Cells 0.00 10^3/uL 10^3/uL (0.00-0.00) Plasma Cells % 0 % % Platelet Estimate ADEQUATE (ADEQ) Sodium 139 mEq/L mEq/L (135-145) Potassium 4.4 mEq/L mEq/L (3.3-5.0) Chloride 97 mEq/L mEq/L (97-110) Carbon Dioxide 23 mEq/l mEq/l (22-31) Anion Gap 19 mEq/L H mEq/L (8-16) BUN 19 mg/dL mg/dL (7-23) Creatinine 1.1 mg/dL mg/dL (0.7-1.3) Estimated GFR > 60 Glucose 148 mg/dL H mg/dL (70-100) Calcium 9.6 mg/dL mg/dL (8.5-10.4) Medications Given: Discontinued Medications Sodium Chloride (Ns) 1,000 mls @ 0 mls/hr IV EDNOW ONE; Wide Open PRN Reason: Protocol Stop: 11/03/17 20:04 Last Admin: 11/03/17 20:10 Dose: 1,000 mls Metoclopramide HCl (Reglan Injection) 10 mg IVP EDNOW ONE Stop: 11/03/17 21:22 Last Admin: 11/03/17 21:22 Dose: 10 mg Ondansetron HCl (Zofran) 4 mg IVP EDNOW ONE Stop: 11/03/17 20:04 Last Admin: 11/03/17 20:10 Dose: 4 mg Departure - Departure Disposition: [facility] Inpatient Acute Clinical Impression: Postoperative vomiting Condition: Fair
[2017-11-03] MEDS ORDERED: PROMETHAZINE HCL 25 MG/ML INJ IVP PRN (21:09)
[2017-11-03] MEDS ORDERED: CYCLOBENZAPRINE 10 MG TAB PO PRN (21:09)
[2017-11-03] MEDS ORDERED: ACETAMINOPHEN 500 MG TAB PO PRN (21:09)
[2017-11-03] MEDS ORDERED: HYDROmorphONE/DILAUDID 1 MG/ML INJ IVP PRN (21:10)
[2017-11-03] MEDS ORDERED: METOCLOPRAMIDE 10 MG/2 ML VIAL ONE (21:19)
[2017-11-03] MEDS ORDERED: METOCLOPRAMIDE 10 MG/2 ML VIAL IVP ONE (21:21)
[2017-11-03] MEDS: D5W LR 1,000 ML IV SCH (22:54)
[2017-11-03] MEDS: traZODone 100 MG TAB PO PRN (23:18)
[2017-11-04] MEDS: D5W LR 1,000 ML IV SCH (05:27)
[2017-11-04] MEDS ORDERED: METOCLOPRAMIDE 10 MG/2 ML VIAL IVP PRN (09:23)
[2017-11-04] MEDS ORDERED: METOPROLOL TARTRATE 25 MG TAB PO SCH (09:30)
[2017-11-04] MEDS: LORazepam 2 MG/ML INJ IVP PRN ×2 (09:46→15:00)
--- NOTE | 2017-11-04 10:09 | ASMTCMCOM ---
CM Note CM Note Notes: Chart reviewed. 67 year old male s/p ostomy reversal 4 days ago with ventral hernia repair presents to the ED with intractable nausea and vomiting. Needs TBD at this time. CM to follow. Plan: TBD Date Signed: 11/04/2017 10:08 AM Electronically Signed By:Kerri Garcia RN
[2017-11-04] MEDS ORDERED: METOPROLOL TARTRATE 5 MG/5 ML INJ IVP PRN (10:15)
--- NOTE | 2017-11-04 10:21 | GHP ---
[f rep st] HISTORY AND PHYSICAL DATE OF ADMISSION: 11/03/2017 CHIEF COMPLAINT: Persistent nausea and vomiting. HISTORY OF PRESENT ILLNESS: 67-year-old male well known to our clinic for complicated recurrent diverticulitis. He underwent colostomy reversal with partial colectomy and low anterior pelvic reanastomosis with loop ileostomy creation and incisional hernia repair with mesh on October 29, 2017. He was discharged to home from the hospital on November 02, 2017, in good condition. He was tolerating regular diet well at that time. He returned to the emergency department late last night with persistent nausea and vomiting. He states he was unable to tolerate liquid or food. He reports having copious ileostomy drainage and hiccups. He was given IV fluids and Zofran in the ED with little relief. He did have some relief with Reglan. He continues to have nausea, vomiting, bloating, and poor tolerance of p.o. liquids and regular diet. Denies fever or chills. No urinary complaints. No chest pain or shortness of breath. Minimal incisional abdominal pain. CURRENT MEDICATIONS: Trazodone, herbal supplements, Flexeril, multivitamin, Tylenol, Phenergan. PAST MEDICAL HISTORY: Diverticulitis, low back pain, migraines, lumbar sprain, lumbosacral degenerative disk disease, MRSA, shortness of breath. PAST SURGICAL HISTORY: Colostomy reversal with partial colectomy, low anterior pelvic reanastomosis with loop ileostomy creation, and incisional hernia repair with mesh; Laminectomy; tonsillectomy; adenoidectomy; laparoscopic left inguinal hernia repair with prophylactic right inguinal hernia repair; open sigmoid colon resection with Dutton pouch and end colostomy; laparotomy with end colostomy wound VAC placement, drainage of abscess, and wound debridement; laparotomy with resection of colocutaneous fistula. FAMILY HISTORY: Noncontributory. SOCIAL HISTORY: Occupation: Self, building construction contractor. Marital Status: to , [place]. Smoking: Nonsmoker. Alcohol: Yes. Recreational Drugs: Yes, marijuana. ALLERGIES: Codeine with rash and itching and hydromorphone with itching. PHYSICAL EXAMINATION: VITAL SIGNS: Blood pressure 170/103, heart rate 94, respiratory rate 18, O2 sat 95, temp 37.1. GENERAL: Alert and oriented. Appears uncomfortable, no acute distress. Afebrile. HEENT: Anicteric. SKIN: Normal with good turgor. CHEST: Normal shape and expansion. HEART: Regular without murmurs. LUNGS: Clear bilaterally. ABDOMEN: Soft, distended , minimal appropriate incisional tenderness. Incision clean without erythema or drainage. Ileostomy in place, pink and productive of succus. MIREYA drain in place with serosanguineous drainage. NEUROLOGIC: Nonfocal. EXTREMITIES: Unremarkable. ASSESSMENT: Postoperative ileus. TREATMENT: Plan to obtain 2-view KUB x-ray, flat and upright. Will continue IV fluids and antiemetics and reassess throughout the day. Possibility of NG tube placement if no improvement on medical management. Clear fluids today as tolerated. Activity as tolerated. May shower. Strip MIREYA drain q. shift. Patient seen with Dr. Osborne. /[id number]/MODL MTDD
--- NOTE | 2017-11-04 14:11 | PDMN ---
Medical Necessity Medical necessity: MCG: M200- ileus: 2 days - pt with N/V/ abd pain, unable to tolerate PO. copious ileostomy drainage and hiccups- pt with poss ileus - NG tube to SXN placed, clear diet, anticipate > 2 midnights ongoing med nec care, eval and tx.
[2017-11-04] MEDS: METOCLOPRAMIDE 10 MG/2 ML VIAL IVP SCH ×2 (14:36→18:50)
[2017-11-04] MEDS: ONDANSETRON 4 MG/2 ML VIAL IVP PRN (15:18)
[2017-11-04] MEDS: KETOROLAC 15 MG/1 ML SDV IVP PRN (18:49)
[2017-11-05] MEDS: METOCLOPRAMIDE 10 MG/2 ML VIAL IVP SCH ×5 (00:10→23:36)
[2017-11-05] MEDS: traZODone 100 MG TAB PO PRN (00:34)
[2017-11-05] MEDS: KETOROLAC 15 MG/1 ML SDV IVP PRN ×2 (09:37→20:39)
[2017-11-05] MEDS: D5W LR 1,000 ML IV SCH ×2 (09:51→17:23)
--- NOTE | 2017-11-05 10:30 | ASMTCMCOM ---
CM Note CM Note Notes: Chart reviewed. Patient is still experiencing issues with nausea and vomiting. NG tube placed. Needs to be determined. Current with [facility] home health care.CM to follow. Plan: Likely home with resumption of [facility] services. Date Signed: 11/05/2017 10:28 AM Electronically Signed By:Kerri Garcia RN
--- NOTE | 2017-11-05 17:50 | SOAPPROG ---
<Joann Ordoñez - Last Filed: 11/05/17 17:54> SOAP Progress Note Assessment/Plan: Assessment/Plan: Post operative ileus vs small bowel obstruction. Improvement from yesterday with NG tube placement. He appears to be more comfortable today. Will consider NG tube clamp tomorrow to reassess his gastric motility/ nausea. Continue with clear fluids. Plan to check CBC and BMP in am. Encouraged more frequent ambulation. Discussed diagnosis and plan with patient and his . 11/05/17 17:56 Subjective: No new concerns overnight. No nausea or emesis since NG tube placement. Drinking clear fluids. Mild low abdominal pain, relieved with toradol. Bloating better today. Some liquid drainage from ileostomy, no gas. He is emptying ileostomy himself- no recorded quantities. Complaining of hiccups and cough. Ambulated in halls twice yesterday. No fever or chills. No chest pain or shortness of breath. Objective: Vital Signs Temp Pulse Resp BP Pulse Ox 37.0 C 100 18 160/94 H 93 11/05/17 16:00 11/05/17 16:00 11/05/17 16:00 11/05/17 16:00 11/05/17 16:00 11/04/17 11/05/17 11/06/17 05:59 05:59 05:59 Intake Total 20194 2772 Output Total 250 6803 5970 Balance 7438 -3706 -1689 Physical Exam: Gen: A&O x3, afebrile, no acute distress HEENT: anicteric, NGT in place with thin brown/clear drainage- 5200cc output. Skin: normal Heart: mild tachycardia, regular rhythm, no murmurs Lungs: CTA bilateral Abdomen: soft, distended- improved from yesterday, mild low midline pain. Incision clean without erythema. Ileostomy pink and productive of liquid stool. MIREYA drain with serosanguinous drainage- 20cc output. Extremities: unremarkable, no edema ICD10 Worksheet Patient Problems: Problems Problem Status Onset Postoperative vomiting Acute Anastomotic leak of intestine Acute Complication of colostomy Acute Diverticulitis large intestine Acute Incisional abscess Acute <Noe Osborne - Last Filed: 11/05/17 18:16> SOAP Progress Note Assessment/Plan: Assessment: as above. improved overnight. small stoma output. continued supportive care. Plan: 11/05/17 18:15 Objective: Vital Signs Temp Pulse Resp BP Pulse Ox 37.0 C 100 18 160/94 H 93 11/05/17 16:00 11/05/17 16:00 11/05/17 16:00 11/05/17 16:00 11/05/17 16:00 11/04/17 11/05/17 11/06/17 05:59 05:59 05:59 Intake Total 2012 7032 6022 Output Total 729 5651 0053 Balance 8274 -4131 -9477
[2017-11-06] MEDS: D5W LR 1,000 ML IV SCH ×2 (00:10→07:58)
[2017-11-06] MEDS: LORazepam 2 MG/ML INJ IVP PRN (00:23)
[2017-11-06] MEDS: KETOROLAC 15 MG/1 ML SDV IVP PRN ×3 (03:47→22:37)
[2017-11-06] MEDS: ONDANSETRON 4 MG/2 ML VIAL IVP PRN ×4 (03:56→20:39)
[2017-11-06 04:46] LABS: PLATELET COUNT 285 10^3/uL (150-400)
[2017-11-06] MEDS: METOCLOPRAMIDE 10 MG/2 ML VIAL IVP SCH ×3 (05:35→17:50)
--- NOTE | 2017-11-06 08:28 | SOAPPROG ---
SOAP Progress Note Assessment/Plan: Assessment/Plan: Post operative ileus. Appears to be continually improving. Distension decreasing. Ileostomy output significantly greater compared to yesterday. He is motivated to trial oral intake again. NG tube clamped- will reassess midday for possible NGT removal and diet advancement. Clear fluids until able reassess. WBC now in normal range (7.5). Slighty low hgb (11.7) likely dilutional. Electrolytes overall stable. Pain well managed. Encouraged ambulation. 11/06/17 08:32 Subjective: No overnight concerns. Complains of throat irritation from NGT, which is disrupting his sleep. No nausea or emesis. Ileostomy output increasing with presence of stool and some gas. No fever or chills. Cough and hiccups better today. Has been ambulating halls with no concern. In good spirits today and hopeful of taking out NGT. Objective: Vital Signs Temp Pulse Resp BP Pulse Ox 37.1 C 94 14 144/89 H 95 11/06/17 04:00 11/06/17 04:00 11/06/17 04:00 11/06/17 04:00 11/06/17 04:00 Laboratory Results 11/06/17 04:24 11/06/17 04:24 11/05/17 11/06/17 11/07/17 05:59 05:59 05:59 Intake Total 2554 5534 Output Total 8519 9285 Balance -3820 -0618 Physical Exam: Gen: A&O x3, afebrile, appears comfortable HEENT: anicteric, eyes appear less tired today, NG tube in place with thin brown drainage Skin: normal, good turgor Heart: RRR Lungs: CTA bilateral Abdomen: soft, appropriately distended- improved from yesterday, minimally tender. Incisions clean without erythema. Ileostomy pink and production of stool and minimal gas. MIREYA drain in place with 20cc output. Extremities: no edema Neuro: nonfocal WBC 7.5. Hgb 11.7. ICD10 Worksheet Patient Problems: Problems Problem Status Onset Postoperative vomiting Acute Anastomotic leak of intestine Acute Complication of colostomy Acute Diverticulitis large intestine Acute Incisional abscess Acute
[2017-11-06] MEDS: ACETAMINOPHEN 325 MG TAB PO PRN (12:12)
[2017-11-06] MEDS: ONDANSETRON DISINTEGRATING 4 MG TAB PO PRN (15:22)
[2017-11-06] MEDS ORDERED: PROMETHAZINE HCL 25 MG/ML INJ IVP PRN (16:52)
[2017-11-06] MEDS ORDERED: D5W 1/2 NS W/ 20 KCl/L 1,000 ML IV SCH (17:00)
[2017-11-07] MEDS: METOCLOPRAMIDE 10 MG/2 ML VIAL IVP SCH ×4 (00:31→18:14)
--- NOTE | 2017-11-07 08:43 | SOAPPROG ---
<DajatasneemJoann - Last Filed: 11/07/17 08:39> SOAP Progress Note Assessment/Plan: Assessment/Plan: Post operative ileus. Abdominal xrays consistent with clinical findings- distension slightly improved today. Nausea and obstructive symptoms resolved again since recurring after NGT removal yesterday. Slowly advance diet as tolerated. Discussed possible nutrient supplementation if inadequate oral intake next few days. Pain well managed. Encouraged ambulation. Will reassess again after trial regular diet. 11/06/17 08:32 11/07/17 08:48 Subjective: Nausea worsened yesterday after NGT removal. Was able to tolerate small amounts of clear fluids, no regular texture foods. IV fluids restarted. No emesis. Overnight his nausea and bloating improved with large amounts of ileostomy output q hour. No fever or chills. No chest pain or shortness of breath. No urinary complaints. No nausea currently. Bloating decreased today. Motivated to retry advancing diet today. Objective: Vital Signs Temp Pulse Resp BP Pulse Ox 36.3 C 103 H 18 141/84 H 91 L 11/07/17 04:25 11/07/17 04:25 11/07/17 04:25 11/07/17 04:25 11/07/17 04:25 Laboratory Results 11/06/17 04:24 11/06/17 04:24 11/06/17 11/07/17 11/08/17 05:59 05:59 05:59 Intake Total 5811 900 Output Total 8170 20 Balance -2359 880 Physical Exam: Gen: A&O x3, afebrile, appears comfortable HEENT: anicteric, eyes appear full and alert Skin: normal Heart: RRR Lungs: CTA bilateral, no crackle or wheeze Abdomen: soft, mild distension, nontender. No succussion splash. Incision clean without erythema or drainage. MIREYA drain in place with serosanguineous fluid , 20cc output. Ileostomy pink and productive of stool, no gas. Extremities: unremarkable, no edema Neuro: nonfocal ICD10 Worksheet Patient Problems: Problems Problem Status Onset Postoperative vomiting Acute Anastomotic leak of intestine Acute Complication of colostomy Acute Diverticulitis large intestine Acute Incisional abscess Acute <Noe Osborne - Last Filed: 11/07/17 18:24> SOAP Progress Note Assessment/Plan: Assessment: as above. patient seen at noon - slow progress. less nausea - occas waves. large stoma output overnight. holding down small po. abd soft, min tenderness. drain serosang. cont supportive care. home when tolerating better po and maintaining hydration. will dc drain, 1/2 aaliyah and stoma bridge prior to discharge. Plan: 11/07/17 18:22 Objective: Vital Signs Temp Pulse Resp BP Pulse Ox 36.6 C 102 H 18 118/88 H 93 11/07/17 15:46 11/07/17 15:46 11/07/17 15:46 11/07/17 15:46 11/07/17 15:46 Laboratory Results 11/06/17 04:24 11/06/17 04:24 11/06/17 11/07/17 11/08/17 05:59 05:59 05:59 Intake Total 5811 900 1000 Output Total 8170 20 Balance -2359 880 1000
[2017-11-07] MEDS: ACETAMINOPHEN 325 MG TAB PO PRN (12:19)
[2017-11-07] MEDS ORDERED: D5W 1/2 NS 1,000 ML IV SCH (16:30)
[2017-11-07] MEDS: KETOROLAC 15 MG/1 ML SDV IVP PRN (23:28)
[2017-11-08] MEDS: METOCLOPRAMIDE 10 MG/2 ML VIAL IVP SCH ×3 (00:52→13:58)
[2017-11-08 10:46] VITALS: BP 144/84
[2017-11-08] MEDS: ONDANSETRON DISINTEGRATING 4 MG TAB PO PRN (11:33)
--- NOTE | 2017-11-08 14:11 | GDS ---
[f rep st] DISCHARGE SUMMARY ADMISSION DATE: 11/03/2017 DISCHARGE DATE: 11/08/2017 ADMISSION DIAGNOSIS: persistent nausea and vomiting DISCHARGE DIAGNOSIS: postoperative ileus, resolved 67-year-old male status post colostomy reversal with partial colectomy and low anterior pelvic re-anastomosis with loop ileostomy creation and incisional hernia repair October 29, 2017. He was discharged from the hospital last weekend in good condition. Over the weekend, he developed nausea and vomiting and unable to tolerate p.o. He was seen in the ED and re-admitted for a postoperative ileus. He was decompressed with an NG tube. Obstructive symptoms resolved with conservative measures and he was able to advance his diet. He is discharging home today in good condition. Activity as tolerated. Regular diet as tolerated. May shower. Wound instructions provided to patient and his . Prescription given for Zofran, Reglan, and Protonix. He is to follow up in the office next Saturday as scheduled. He will call our office with any further questions or concerns. CURRENT MEDICATION: Zofran, Reglan, Protonix, trazodone, herbal supplement, Flexeril, multivitamin, Tylenol, phenergan. /[id number]/MODL MTDD
--- NOTE | 2017-11-09 10:13 | PDIAF ---
- Diagnosis Diagnosis: diverticulitis Code Status: Full Code - Medication Management Discharge Medications: Medications to Continue on Transfer traZODone [traZODONE 100MG (*)] 50 - 100 mg PO HS PRN 03/27/16 [Last Taken 10/26] Herbals/Supplements -Info Only 1 ea PO DAILY 02/04/17 [Last Taken 10/21/17] Cyclobenzaprine [Flexeril 10 MG (*)] 10 mg PO HS PRN 10/09/17 [Last Taken ] Multivitamins [Multivitamin (*)] 1 each PO DAILY 10/09/17 [Last Taken 10/21/17] Acetaminophen [Tylenol ES 500 mg (*)] 500 - 1,000 mg PO Q4HRS PRN tab 11/02/17 [Last Taken 11/03/17 14:30 500MG] Promethazine HCl [Phenergan 12.5mg tab] 12.5 mg PO Q4 PRN 11/03/17 [Last Taken 11/03/17 18:00] Metoclopramide [Reglan 10 mg tab (*)] 10 mg PO ACHS #120 tab 11/08/17 [Last Taken Unknown] Ondansetron Odt [Zofran Odt 4 mg (*)] 4 mg PO Q4 PRN #30 tab 11/08/17 [Last Taken Unknown] Pantoprazole Sodium [Protonix] 20 mg PO BID #60 tablet. 11/08/17 [Last Taken Unknown] Discharge Medications: Refer to the Discharge Home Medication list for PRN reason. PICC Care - Routine: N/A - Orders Services needed: Registered Nurse Isolation Type: None Diet Recommendation: no restrictions on diet Diet Texture: Regular Texture Diet Additional Instructions: Regular diet. No lifting >35lbs for 2 weeks. May shower. May wash stoma and drain site with soap and water. Prescriptions given for Reglan and Protonix. Will see back in office next Saturday. Call if unable to tolerate food or drink, fever, pain not controlled with medication. - Follow Up Care Current Providers and Referrals: Noe Osborne MD [Medical Doctor] - follow up as scheduled () NONE *PRIMARY CARE P,. [Primary Care Provider] - As per Instructions
== END 2017-11-08 13:50 | disposition home or self-care (01) | DRG 395 ==
LOC: F1N 22:23
PROVIDERS: ADMIT Surgery; ATTEND Surgery
PROC: 0D9670Z Drainage of Stomach with Drainage Device, Via Natural or Artificial Opening (ICD-10-PCS; principal; 2017-11-04)
DX: K91.89 Other postprocedural complications and disorders of digestive system (principal); K91.0 Vomiting following gastrointestinal surgery; Z90.49 Acquired absence of other specified parts of digestive tract; M51.36 Other intervertebral disc degeneration, lumbar region; Z86.14 Personal history of Methicillin resistant Staphylococcus aureus infection; Z87.891 Personal history of nicotine dependence
CPT/HCPCS: 96374; J1885; J2060; J2405; J2550; J2765

== ENCOUNTER 2017-11-20 16:07 | Inpatient (IN) | payer BC, OTHER ==
[2017-11-20] MEDS ORDERED: ADENOSINE 6 MG/2 ML VIAL ONE ×3 (16:18→16:25)
--- NOTE | 2017-11-20 16:20 | CPEKG ---
Heart Rate: 231 RR Interval: 260 P-R Interval: 124 QRSD Interval: 80 QT Interval: 228 QTC Interval: 447 P [place]: 0 QRS [place]: -78 T Wave [place]: 27 EKG Severity - ABNORMAL ECG - EKG Impression: SUPRAVENTRICULAR TACHYCARDIA EKG Impression: ST DEPRESSION, PROBABLY RATE RELATED Electronically Signed By: Julius Garcia 24-Nov-2017 09:10:36
[2017-11-20] MEDS ORDERED: ADENOSINE 6 MG/2 ML VIAL IVP ONE ×3 (16:21→16:26)
--- NOTE | 2017-11-20 16:22 | EDPHY ---
HPI/HX/ROS/PE/MDM Narrative: CHIEF COMPLAINT: Lightheadedness, tachycardia. HPI: This patient is a healthy 67 year-old male s/p bowel surgery with Dr. Osborne . Around 14:50 this afternoon, he was sitting on his couch and his heart began "pumping up a storm". He had associated dizziness, lightheadedness, cold sweats, and confusion. The sensation of his heart racing persisted and he endorses some shortness of breath. He denies any chest pain. The patient notes that during his admission following his surgery, he had some issues with fluctuating blood pressure. His usual pressure is 120/80, but he states it was erratic following the surgery. His at bedside states the patient has a family history of heart problems in both parents. The patient denies any known personal history of cardiac problems, hypertension, or diabetes. He is a nonsmoker. The patient denies taking any antihypertensive medications, and his normal BP is 120/80. His medications include Tylenol prn, Trazodone prn insomnia and CBD and naproxen for pain prn. No fever, vomiting, diarrhea, urinary complaints, or other associated symptoms. REVIEW OF SYSTEMS: Aside from elements discussed in the HPI, a comprehensive 10-point review of systems was reviewed and is negative. PMH: Celiac disease. Diverticulitis s/p colectomy and colostomy placement 2015, reversal 07/2016. History of orthopedic surgeries. History of MRSA infection 2013. SOCIAL HISTORY: . at bedside. Employed. Works at [employer]. Lives in [place]. PHYSICAL EXAM: General:Patient is alert, in no acute distress. ENT:Eyes are normal to inspection. ENT inspection normal. Neck: Normal inspection. Full range of motion. Respiratory:No respiratory distress. Breath sounds normal bilaterally. Cardiovascular: Regular rate and rhythm. Strong peripheral pulses. Normal cap refill. Abdomen:The abdomen is nontender to palpation. There are no peritoneal signs. There are normal bowel sounds. Back: Normal to inspection. No tenderness to palpation. Skin: Normal color. No rash. Warm and dry. Extremities: Normal appearance. Full range of motion. Neuro: Oriented x3. Normal motor function. Normal sensory function. ED Course: 16:15 Met at bedside. HR 230, BP unable to obtain. 16:19 Attempted Valsalva maneuver for rate control. Plan for 6mg IV Adenosine. Explained effects of procedure to patient. 16:21 Heart rate remains elevated. Administered 6mg IV Adenosine. HR remains elevated. 230. Plan to administer 12mg IV Adenosine. 16:23 Additional 12mg administered. Briefly sinus, rate 80. Jumped back to 230bpm after several beats. I will consider metoprolol for BP control. Plan to administer one additional dose of adenosine for rate control prior to further interventions including electrocardioversion. 16:26 12mg IV Adenosine administered. Patient's HR dropped to 143. Remaining steady. Patient endorses decreased shortness of breath and decreased lightheadedness. BP 114/61. Will not administer metoprolol at this time. 16:29 EKG at bedside shows sinus tachycardia. EKG was ordered and interpreted by myself. Please see [id number] system for official reading. CXR negative for acute cardiopulmonary processes. 18:00 Patient's HR has remained steady around 110-120 since the final dose of adenosine. WBC elevated at 16,000. Patient is afebrile. BP 90/65. HR remains mildly tachycardic around 100. He has no infectious symptoms. Plan to admit. 19:25 Consulted with hospitalist service. Dr. Metcalf accepts admission for SVT. - Data Points Imaging Results: Imaging Impressions Chest X-Ray 11/20/17 17:00 Impression: 1. No acute cardiopulmonary process. 2. Probable superior compression deformity of an upper to mid thoracic vertebral body, new since 2013. Imaging: I viewed and interpreted images myself Laboratory Results: Laboratory Results 11/20/17 16:43 11/20/17 16:35 11/20/17 11/20/17 11/20/17 18:59 18:25 16:43 WBC 16.52 10^3/uL H 10^3/uL (3.80-9.50) RBC 3.89 10^6/uL L 10^6/uL (4.40-6.38) Hgb 12.4 g/dL L g/dL (13.7-17.5) POC Hgb Hct 36.2 % L % (40.0-51.0) POC Hct MCV 93.1 fL fL (81.5-99.8) MCH 31.9 pg pg (27.9-34.1) MCHC 34.3 g/dL g/dL (32.4-36.7) RDW 13.1 % % (11.5-15.2) Plt Count 455 10^3/uL H 10^3/uL (150-400) MPV 8.9 fL fL (8.7-11.7) Neut % (Auto) 85.2 % H % (39.3-74.2) Lymph % (Auto) 7.1 % L % (15.0-45.0) [place] % (Auto) 6.1 % % (4.5-13.0) Eos % (Auto) 0.2 % L % (0.6-7.6) Baso % (Auto) 0.2 % L % (0.3-1.7) Nucleat RBC Rel Count 0.0 % % (0.0-0.2) Absolute Neuts (auto) 14.08 10^3/uL H 10^3/uL (1.70-6.50) Absolute Lymphs (auto) 1.17 10^3/uL 10^3/uL (1.00-3.00) Absolute Monos (auto) 1.00 10^3/uL H 10^3/uL (0.30-0.80) Absolute Eos (auto) 0.03 10^3/uL 10^3/uL (0.03-0.40) Absolute Basos (auto) 0.04 10^3/uL 10^3/uL (0.02-0.10) Absolute Nucleated RBC 0.00 10^3/uL 10^3/uL (0-0.01) Immature Gran % 1.2 % H % (0.0-1.1) Immature Gran # 0.20 10^3/uL H 10^3/uL (0.00-0.10) PT INR APTT VBG Lactic Acid 1.1 mmol/L mmol/L (0.7-2.1) POC Sodium Sodium POC Potassium Potassium POC Chloride Chloride Carbon Dioxide Anion Gap POC BUN BUN Creatinine POC Creatinine Estimated GFR Glucose POC Glucose Calcium POC Troponin I Urine Color YELLOW Urine Appearance CLEAR Urine pH 7.0 (5.0-7.5) Ur Specific [place] 1.004 (1.002-1.030) Urine Protein NEGATIVE (NEGATIVE) Urine Ketones NEGATIVE (NEGATIVE) Urine Blood NEGATIVE (NEGATIVE) Urine Nitrate NEGATIVE (NEGATIVE) Urine Bilirubin NEGATIVE (NEGATIVE) Urine Urobilinogen NEGATIVE EU EU (0.2-1.0) Ur Leukocyte Esterase NEGATIVE (NEGATIVE) Urine Glucose NEGATIVE (NEGATIVE) 11/20/17 11/20/17 11/20/17 16:35 16:35 16:29 WBC RBC Hgb POC Hgb 13.3 gm/dL L gm/dL (13.7-17.5) Hct POC Hct 39 % L % (40-51) MCV MCH MCHC RDW Plt Count MPV Neut % (Auto) Lymph % (Auto) [place] % (Auto) Eos % (Auto) Baso % (Auto) Nucleat RBC Rel Count Absolute Neuts (auto) Absolute Lymphs (auto) Absolute Monos (auto) Absolute Eos (auto) Absolute Basos (auto) Absolute Nucleated RBC Immature Gran % Immature Gran # PT 15.3 SEC H SEC (12.0-15.0) INR 1.19 H (0.83-1.16) APTT 31.6 SEC SEC (23.0-38.0) VBG Lactic Acid POC Sodium 133 mEq/L L mEq/L (135-145) Sodium 133 mEq/L L mEq/L (135-145) POC Potassium 4.4 mEq/L mEq/L (3.3-5.0) Potassium 4.7 mEq/L mEq/L (3.3-5.0) POC Chloride 101 mEq/L mEq/L (97-110) Chloride 100 mEq/L mEq/L (97-110) Carbon Dioxide 17 mEq/l L mEq/l (22-31) Anion Gap 16 mEq/L mEq/L (8-16) POC BUN 20 mg/dL mg/dL (7-23) BUN 19 mg/dL mg/dL (7-23) Creatinine 1.5 mg/dL H mg/dL (0.7-1.3) POC Creatinine 1.5 mg/dL H mg/dL (0.7-1.3) Estimated GFR 47 Glucose 145 mg/dL H mg/dL (70-100) POC Glucose 154 mg/dL H mg/dL (70-100) Calcium 8.7 mg/dL mg/dL (8.5-10.4) POC Troponin I Urine Color Urine Appearance Urine pH Ur Specific [place] Urine Protein Urine Ketones Urine Blood Urine Nitrate Urine Bilirubin Urine Urobilinogen Ur Leukocyte Esterase Urine Glucose 11/20/17 16:27 WBC RBC Hgb POC Hgb Hct POC Hct MCV MCH MCHC RDW Plt Count MPV Neut % (Auto) Lymph % (Auto) [place] % (Auto) Eos % (Auto) Baso % (Auto) Nucleat RBC Rel Count Absolute Neuts (auto) Absolute Lymphs (auto) Absolute Monos (auto) Absolute Eos (auto) Absolute Basos (auto) Absolute Nucleated RBC Immature Gran % Immature Gran # PT INR APTT VBG Lactic Acid POC Sodium Sodium POC Potassium Potassium POC Chloride Chloride Carbon Dioxide Anion Gap POC BUN BUN Creatinine POC Creatinine Estimated GFR Glucose POC Glucose Calcium POC Troponin I 0.01 ng/mL ng/mL (0.00-0.08) Urine Color Urine Appearance Urine pH Ur Specific [place] Urine Protein Urine Ketones Urine Blood Urine Nitrate Urine Bilirubin Urine Urobilinogen Ur Leukocyte Esterase Urine Glucose Medications Given: Discontinued Medications Adenosine (Adenosine) 6 mg IVP EDNOW ONE Stop: 11/20/17 16:22 Last Admin: 11/20/17 16:21 Dose: 6 mg Adenosine (Adenosine) 12 mg IVP EDNOW ONE Stop: 11/20/17 16:24 Last Admin: 11/20/17 16:23 Dose: 12 mg Adenosine (Adenosine) 12 mg IVP EDNOW ONE Stop: 11/20/17 16:27 Last Admin: 11/20/17 16:26 Dose: 12 mg Sodium Chloride (Ns) 1,000 mls @ 0 mls/hr IV EDNOW ONE; Wide Open PRN Reason: Protocol Stop: 11/20/17 16:32 Last Admin: 11/20/17 16:39 Dose: 1,000 mls Point of Care Test Results: Chemistry 11/20/17 11/20/17 16:29 16:27 POC Sodium 133 mEq/L L mEq/L (135-145) POC Potassium 4.4 mEq/L mEq/L (3.3-5.0) POC Chloride 101 mEq/L mEq/L (97-110) POC BUN 20 mg/dL mg/dL (7-23) POC Creatinine 1.5 mg/dL H mg/dL (0.7-1.3) POC Glucose 154 mg/dL H mg/dL (70-100) POC Troponin I 0.01 ng/mL ng/mL (0.00-0.08) ISTAT H&H 11/20/17 16:29 POC Hgb 13.3 gm/dL L gm/dL (13.7-17.5) POC Hct 39 % L % (40-51) General Time Seen by Provider: 11/20/17 16:14 Initial Vital Signs: Initial Vital Signs Temperature (C) 37.5 C 11/20/17 16:08 O2 Delivery Mode Nasal Cannula O2 (L/minute) 98 Allergies/Adverse Reactions: gluten Allergy (Severe, Verified 10/14/17 15:31) Other-Enter Comments codeine Allergy (Verified 10/14/17 15:49) Itching Opioids - Morphine Analogues Allergy (Verified 10/14/17 15:49) Itching Home Medications: Medication Instructions Recorded traZODone [traZODONE 100MG (*)] 50 - 100 mg PO HS PRN 03/27/16 Herbals/Supplements -Info Only 1 ea PO DAILY 02/04/17 Cyclobenzaprine [Flexeril 10 MG 10 mg PO HS PRN 10/09/17 (*)] Acetaminophen [Tylenol ES 500 mg 500 - 1,000 mg PO Q4HRS PRN tab 11/02/17 (*)] Naproxen Sodium [Aleve 220 MG (*)] 220 mg PO BID PRN 11/20/17 Departure - Departure Disposition: [facility] Acute Clinical Impression: Supraventricular tachycardia Condition: Fair Report Scribed for: Donte Kumari Report Scribed by: Reba Obrien Date of Report: 11/20/17 Time of Report: 16:39
[2017-11-20] MEDS ORDERED: LABETALOL HCL 5 MG/ML 20 ML MDV ONE (16:27)
[2017-11-20] MEDS ORDERED: METOPROLOL TARTRATE 5 MG/5 ML INJ ONE (16:27)
[2017-11-20] MEDS ORDERED: NS 1,000 ML IV ONE ×2 (16:31→20:29)
[2017-11-20 16:45] LABS: PLATELET COUNT 455 10^3/uL (150-400)
[2017-11-20 17:06] LABS: INR 1.19 (0.83-1.16)
[2017-11-20 17:57] LABS: PROTIME(PATIENT) 15.3 SEC (12.0-15.0)
[2017-11-20] MEDS ORDERED: NS 1,000 ML IV SCH (20:00)
[2017-11-20] MEDS ORDERED: PROMETHAZINE HCL 25 MG/ML INJ IVP PRN (20:02)
[2017-11-20] MEDS ORDERED: ONDANSETRON 4 MG/2 ML VIAL IVP PRN (20:02)
[2017-11-20] MEDS ORDERED: ACETAMINOPHEN 325 MG TAB PO PRN (20:02)
[2017-11-20] MEDS ORDERED: traMADol 50 MG TAB PO PRN (20:02)
[2017-11-20] MEDS ORDERED: CYCLOBENZAPRINE 10 MG TAB PO PRN (20:03)
[2017-11-20] MEDS ORDERED: traZODone 100 MG TAB PO PRN (20:03)
--- NOTE | 2017-11-20 21:06 | GHP ---
[f rep st] HISTORY AND PHYSICAL DATE OF ADMISSION: 11/20/2017 CHIEF COMPLAINT: Shortness of breath. HISTORY: The patient is a 67-year-old male with a complicated surgical history, starting with a perf orated diverticulum last fall. He initially had a colostomy, which he underwent takedown with Dr. 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 He had an anastomotic leak with abscesses. He re-presented to the [facility] and had elective colostomy takedown with Dr. Osborne recently on October 29. Dr. Osborne took down his co lostomy, but created a new ileostomy to be in place while the colon fully healed. He had a 2nd admis yvonne 6 days after his initial surgery for postoperative ileus. He is now re-presenting to the [facility] after an episode of extreme shortness of breath. At 3 o'clock this afternoon, the patient was sitting in the recliner working at his computer, when he had acute onset of lightheadedness, dizziness, and a cold sweat. He became extremely short of breat h and confused. He checked his vital signs at home and found he was hypotensive and with a very elev ated heart rate. He has been having persistent, continuous shortness of breath ever since surgery, b ut no chest pain. Upon arrival to the emergency room, he was found to be in SVT with a heart rate of 230. He received 6, then 12, and another 12 mg of adenosine with conversion back to a normal sinus rhythm. The patient also complains that he has developed a new hernia at the top part of his incision with a strange abdominal bulging starting yesterday. He has ongoing abdominal tenderness about a 2/10. He is able to eat a regular diet without difficulty, but his ostomy output has become more liquid recent ly. PAST MEDICAL HISTORY: 1. Perforated diverticulitis with failed colostomy takedown, colocutaneous fistula, anastomotic leak with abscess. 2. Celiac disease. PAST SURGICAL HISTORY: Back surgery, multiple orthopedic surgeries. MEDICATIONS: Please see computerized record for full detailed list. ALLERGIES: Opioids. SOCIAL HISTORY: Quit smoking 25 years ago. No alcohol. He lives with his , Smiley. REVIEW OF SYSTEMS: Complete review of systems obtained. Review of systems negative regarding consti tutional, HEENT, GI, pulmonary, cardiovascular, , hematology, skin, muscular, endocrine, psych, exc ept for positives and negatives as noted as in HPI. FAMILY HISTORY: Positive for coronary disease and stroke. PHYSICAL EXAMINATION: GENERAL: Well-developed, well-nourished male, in no acute distress. VITAL SI GNS: Temperature 37.5, pulse 123, blood pressure 92/66, satting 98% 2 L. EYES: Normal conjunctivae . Pupils equal, round, and reactive to light. ENT: Normal ears and nose. Hearing intact. Normal lips and teeth. Oropharynx moist. NECK: Trachea midline. No thyromegaly. CHEST: Normal respirat ory effort. LUNGS: Clear to auscultation bilaterally. CARDIOVASCULAR: Regular rate and rhythm. N o murmur. No lower extremity edema. ABDOMEN: Soft, distended, with a very obvious bulge, probable herniation at the top part of his incision. Ileostomy in the right lower quadrant. No hepatosplenom egaly. SKIN: Warm, dry, intact, without rash. MUSCULOSKELETAL: No cyanosis or clubbing. Strength 5/5 in upper and lower extremities. NEUROLOGIC: Cranial nerves intact. Normal sensation light brian ch. PSYCH: Alert and oriented x3. Normal affect. Normal judgment and insight. Normal memory. LABS: White count 16.5, hematocrit 36.2, platelets 455. Sodium 133, potassium 4.7, chloride 100, bi carb 17, BUN 19, creatinine 1.5, glucose 145. Troponins negative. Lactate is 1.1. Chest x-ray is n egative. EKG viewed by me. My personal interpretation is SVT with a heart rate of 231. Medical rec ords reviewed. Medical records are extensive, and I reviewed them regarding complicated postoperativ e course, as detailed above. This case was discussed with Dr. Lalo Kumari regarding ER course and multiple rounds of IV adenosine. Dr. Kumari had concerns that there was an underlying process driv ing the SVT. ASSESSMENT/PLAN: 1. Supraventricular tachycardia, status post adenosine 6 mg, then 12 mg, then 12 mg, with final conv ersion to a normal sinus rhythm. We will check an echocardiogram and a TSH. I agree with Dr. Julissa quiñonez's concern that this supraventricular tachycardia may be secondary to another stressor in his body, such as sepsis or pulmonary embolus. I am concerned regarding his recent complicated surgical cours e and persistent shortness of breath since surgery. We will check a CT angiogram of the chest to rul e out pulmonary embolism. 2. Sepsis. This is evidenced by leukocytosis and tachycardia. His heart rate remains greater than 100, despite being converted back to a normal sinus rhythm. He has a recent complicated abdominal melendez rgery with ongoing pain and a new bulging at the top part of his incision. I will check a CT scan of the abdomen and pelvis. He may need possible inpatient consultation with Dr. Osborne, depending on resu lt of CAT scan. 3. Acute renal failure. This is mild. He is mildly hypovolemic. We will discontinue nonsteroidal antiinflammatory drugs and hydrate with IV fluids. 4. Celiac disease. We will continue gluten-free diet. CODE STATUS: Full. ADMISSION STATUS: Will admit to observation. Reevaluate tomorrow regarding ongoing need for hospita lization. DVT PROPHYLAXIS: He is high risk. We will place him on subcu Lovenox. /[id number]/MODL
[2017-11-20] MEDS ORDERED: IOPAMIDOL (ISOVUE 370) 100 ML BTL IV ONE (21:42)
[2017-11-20 23:05] LABS: PLATELET COUNT 301 10^3/uL (150-400)
[2017-11-20 23:21] LABS: INR 1.33 (0.83-1.16); PROTIME(PATIENT) 16.7 SEC (12.0-15.0)
[2017-11-20] MEDS: HEPARIN/DEXTROSE 500 ML IV SCH (23:42)
[2017-11-20] MEDS: HEPARIN 10,000 UNIT/10 ML MDV (1,000 UNIT/ML) IVP PRN (23:44)
[2017-11-21 05:19] LABS: PLATELET COUNT 324 10^3/uL (150-400)
[2017-11-21] MEDS: HEPARIN 10,000 UNIT/10 ML MDV (1,000 UNIT/ML) IVP PRN ×2 (05:54→19:54)
--- NOTE | 2017-11-21 07:37 | CPEKG ---
Heart Rate: 127 RR Interval: 472 P-R Interval: 136 QRSD Interval: 78 QT Interval: 300 QTC Interval: 437 P [place]: 57 QRS [place]: 72 T Wave [place]: 46 EKG Severity - OTHERWISE NORMAL ECG - EKG Impression: SINUS TACHYCARDIA Electronically Signed By: Julius Garcia 24-Nov-2017 09:08:34
[2017-11-21] MEDS ORDERED: ENOXAPARIN 40 MG/0.4 ML SYR SC SCH (09:00)
--- NOTE | 2017-11-21 09:06 | CPEKG ---
Heart Rate: 86 RR Interval: 698 P-R Interval: 164 QRSD Interval: 76 QT Interval: 364 QTC Interval: 436 P [place]: 41 QRS [place]: 4 T Wave [place]: 35 EKG Severity - OTHERWISE NORMAL ECG - EKG Impression: SINUS RHYTHM EKG Impression: LOW VOLTAGE IN FRONTAL LEADS Electronically Signed By: Reymundo Elizalde 21-Nov-2017 21:44:42
--- NOTE | 2017-11-21 10:37 | ECHO ---
[email or web address] [address] [address] Main: [phone] Fax: Transthoracic Echocardiogram Name: SHERLYN HOLDER MR#: [id number] Study Date: 11/21/2017 Study Time: 07:36 AM Date of : 1950 Age: 67 year(s) Height: 175.3 cm (69 in.) Weight: 79.38 kg (175 lb.) BSA: 1.95 m2 Gender: Male Examination: Echo Indication: New onset SVT/PE Image Quality: Contrast: Requested by: Yancy Metcalf BP: 100 mmHg/63 mmHg Heart Rate: Rhythm: Indication: New onset SVT/PE Procedure Staff Inspector Filters: Valeria Arroyo RDCS Reading Physician: Sven Archer MD Requesting Provider: Conclusions: Normal size left ventricle. Normal global systolic LV function. The ejection fraction is estimated to be 65-70 %. No regional wall motion abnormality. Normal RV function. The right atrium is normal in size. The pulmonary artery pressure is normal. No pericardial effusion. Measurements: Chambers Valvular Assessment AV/MV Valvular Assessment TV/PV Normal Normal Normal Name Value Range Name Value Range Name Value Range Ao Leanna (MM): 3.8 cm (2.2 cm-3.7 AV meanP mmHg ( - ) TR Vmax: 2.02 mm/s ( - ) cm) AR (PHT): 521 ms ( - ) TR PGmax: 16 mmHg ( - ) LVDd (2D): 5.0 cm (4.2 cm-5.9 MV E Vmax: 0.66 m/s ( - ) syst. PAP: 21 mmHg ( - ) cm) MV A Vmax: 0.66 m/s ( - ) LVEF (MOD4): 69 % (>=55 %) MV E/A: 1.00 ( - ) EF Range: 65-70 % Continued Measurements: Chambers Valvular Assessment AV/MV Valvular Assessment TV/PV Name Value Name Value Name Value LADs: 3.4 cm MV E' Septal: 0.07 m/s CVP (est.): 5 mmHg LADs Lon.1 cm MV E/E' Septal: 9.20 LA Area: 20.8 cm2 MV E/E' Lateral: 8.00 TAPSE: 2.0 cm AR Vmax: 3.37 cm/s Patient: SHERLYN HOLDER Study Date: 11/21/2017 Page 1 of 2 07:36 AM Additional Vessels Name Value Ao Ascendin.2 cm Findings: Left Ventricle: Normal size left ventricle. No LV hypertrophy. Normal global systolic LV function. The ejection fraction is estimated to be 65-70 %. No regional wall motion abnormality. Right Ventricle: Normal size right ventricle. Normal RV function. Left Atrium: The left atrium is normal in size. Right Atrium: The right atrium is normal in size. Mitral Valve: The mitral valve is normal in appearance and function. Trivial mitral valve regurgitation. Aortic Valve: The aortic valve is normal in appearance and function. The aortic valve is tri-leaflet. Mild aortic valve regurgitation is present. Tricuspid Valve: The tricuspid valve is normal in appearance and function. Trivial tricuspid valve regurgitation. The pulmonary artery pressure is normal. Pulmonic Valve: The pulmonic valve is normal in appearance and function. Aorta: The aorta is normal. Pericardium: No pericardial effusion. (No Signature Object) Patient: SHERLYN HOLDER Study Date: 11/21/2017 Page 2 of 2 07:36 AM [id number]
--- NOTE | 2017-11-21 12:27 | GCON ---
[f rep st] CONSULTATION INFECTIOUS DISEASE CONSULTATION DATE OF CONSULTATION: 11/21/2017 REASON FOR CONSULTATION: Possible incisional abscess. HISTORY OF PRESENT ILLNESS: A 67-year-old male with a complicated surgical history dating back to 2015, in which he developed diverticulitis with perforation 03/2016, and had a colon resection at that time with colostomy with culture showing E coli and Enterococcus avium group. The patient subsequently underwent a colostomy takedown starting in July 2016, with a complicated postoperative course with wound dehiscence, anastomotic leak, and colocutaneous fistulas requiring multiple wound VACs. Subsequently, patient's process resolved and 1 wound culture over that time 08/30/2016, showed E coli. The patient received ertapenem from 03/30/2016 through 04/09/2016, and again August through August 25, 2016. He also received ertapenem 02/06/2017 through the , which was at that time, he had another debridement of fistula and wound VAC placement. The patient subsequently sought a 2nd opinion and then underwent a recent surgery on 10/29/2017, which included a colostomy reversal with partial colectomy and low anterior pelvic reanastomosis, loop ileostomy, complex incisional hernia repair, and bilateral abdominal wall separation with Strattice placement. The patient only received perioperative cefoxitin for this procedure. The patient was discharged from the hospital following this recent operative procedure on 11/02/2017, and readmitted from the to for postoperative ileus. The patient returned to the emergency room 11/20/2017 , due to shortness of breath, dizziness and diaphoresis, and was found to have SVT with a heart rate of 230. The patient was treated with adenosine and converted back to normal sinus rhythm. The patient underwent evaluation with CT chest, abdomen, and pelvis. CT of the abdomen demonstrated a fairly large anterior wall abdominal abscess 10.5 x 6 cm. In addition, CT chest showed a pulmonary embolus in the right middle lobe and right lower lobe. The patient was started on anticoagulation. From the emergency room, patient was started on ceftriaxone and metronidazole. Today, ID is asked to comment on management of a large fluid collection at the incision line. PAST MEDICAL HISTORY: Patient has a remote history of MRSA in 2012, diverticulitis, and diverticulosis and celiac disease. PAST SURGICAL HISTORY: As per HPI. In addition, patient has had multiple back surgeries ranging from L2-L5 in 1982, 1999, 2000. He had a pelvis fracture and left elbow fracture requiring multiple surgeries as well. FAMILY HISTORY: Positive for heart disease in both of his parents. Denies malignancies. SOCIAL HISTORY: He is , has 2 children. He is originally from [place]. He came to [place] in 1982. 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 ALLERGIES: Gluten, codeine, and opioids. No antibiotic allergies. MEDICATIONS: Ceftriaxone 1 g IV q.24 started 11/20, metronidazole 500 mg IV q.8 , started 11/21, Ultram, trazodone, Phenergan, Zofran, and IV heparin and Flexeril. REVIEW OF SYSTEMS: A complete 10-point review of systems was performed and is negative except as mentioned in the HPI. PHYSICAL EXAM: GENERAL: This is a very pleasant, nontoxic-appearing male, sitting in bed, fluent speech. His is at bedside. VITAL SIGNS: Blood pressure 114/68, heart rate 89, respiratory rate 18, saturation 98% on room air. He has been afebrile throughout his hospital course. His temperature is 36.7 today. HEENT: Good dentition. No conjunctival hemorrhages. Moist mucous membranes. NECK: Supple. No lymphadenopathy. CARDIOVASCULAR: Regular rate no murmurs. CHEST: Clear to auscultation bilaterally with slightly decreased breath sounds in the right base. ABDOMEN: Patient has large protuberance in the mid abdominal region. He has a completely healed midline incision. The area over the protuberance which is probably in the realm of 8 inches x 4 inches, there is faint erythema and significant warmth, minimal tenderness. No peritoneal signs. Ileostomy stoma appears healthy with liquid stool in the bag. No incisional drainage. : No Bernal. EXTREMITIES: No clubbing, cyanosis, or edema. NEUROLOGIC: He is alert and oriented x4. Moving all 4 extremities equally. LABORATORY: Initially his white count was 16.5 with hematocrit 36, platelets of 455. Today's white count 10.2, hematocrit 29, platelets of 324, 79% neutrophils, 13% lymphocytes. Blood cultures were obtained on admission 11/20, and are pending. He also had a GI panel, that was a PCR that was negative. The patient's microbiologic data, abdominal wound swab 04/01/2016, that showed E coli resistant to amp/sulbactam and Bactrim, otherwise susceptible and mast susceptible Enterococcus. He had another abdominal swab 09/06/2017, that showed mast susceptible E coli and then wound culture on 01/18/2017, that showed Corynebacterium striatum. He also had a single blood culture from 08/16/2016, that was negative. Creatinine on admission was slightly elevated at 1.5, today 1.2. Urinalysis was negative. CT scans as per HPI. ASSESSMENT AND PLAN: This is a 67-year-old male with a very complex surgical history related to diverticulitis, who presented to the hospital with supraventricular tachycardia, found to have a leukocytosis, pulmonary emboli and large abdominal wall fluid collection that is suggestive of an abscess, both on imaging and physical exam. 1. Reasonable to continue IV antibiotics as already prescribed with Rocephin and metronidazole. 2. Would recommend drainage of large abdominal wall fluid collection to determine specific etiology. 3. acute renal failure: antibiotic dosing appropriate. Thank you for this consultation. We will continue to follow on a daily basis. The plan for drainage and antibiotic therapy reviewed with patient and his at bedside. Time was 80 minutes, greater 50% time spent with education and counseling regarding antibiotic risks, treatment of his likely abdominal wall abscess and ongoing management. /[id number]/MODL MTDGlenroy
--- NOTE | 2017-11-21 13:41 | SOAPPROG ---
SOAP Progress Note Assessment/Plan: Assessment:current surgical patient s/p colostomy takedown with complex abdominal wall reconstruction with biologic mesh and protective loop ileostomy. admitted postop with ileus which has subsequently resolved. readmitted last evening with PE and SVT - heparinized and rate controlled with meds. feeling much better today. imaging disclosed a large abd wall fluid collection at site of prior seroma/postop drains. abscess drained at bedside. local wound care instructions explained to patient and staff. will continue short po abx course as outpatient. Plan: 11/21/17 13:38 Objective: Vital Signs Temp Pulse Resp BP Pulse Ox 36.8 C 96 16 111/64 95 11/21/17 12:04 11/21/17 12:04 11/21/17 12:04 11/21/17 12:04 11/21/17 12:04 Microbiology 11/20/17 20:50 Gastrointestinal Tract Panel (PCR) - Final Stool No Organism Detected Laboratory Results 11/21/17 05:03 11/21/17 05:03 11/20/17 11/21/17 11/22/17 05:59 05:59 05:59 Intake Total 2730 Balance 2730 PT 16.7 SEC (12.0-15.0) H 11/20/17 22:47 INR 1.33 (0.83-1.16) H 11/20/17 22:47 ICD10 Worksheet Patient Problems: Problems Problem Status Onset Supraventricular tachycardia Acute Anastomotic leak of intestine Acute Complication of colostomy Acute Diverticulitis large intestine Acute Incisional abscess Acute Postoperative vomiting Acute
--- NOTE | 2017-11-21 14:01 | ASMTCMCOM ---
CM Note CM Note Notes: Patient admitted for SOB. He has also had bouts of SVT and has labwork concerning for sepsis - which may be the source of the SVT. He is s/p complicated abominal surgery a week ago; he discharged home with home nursing from [facility]. ID, Cardiology, and surgery have been consulted on his case. Patient lives with his . Discharge needs are TBD. Case Management will follow. Date Signed: 11/21/2017 02:00 PM Electronically Signed By:Melvi Gong RN
--- NOTE | 2017-11-21 14:20 | HOSPPROG ---
Hospitalist Progress Note Assessment/Plan: #Abd wall abscess #Sepsis, resolved #RML and RLL PE #elevated troponin, likely due to strain vs. PE. Doubt CV etiology -EKG with no e/ o ischemia -no active chest pain #Acute Kidney Injury: resolved Plan: -Rocephin, Flagyl, ID following -stop IVF -Dr. Osborne to see -Heparin drip -repeat trop. check TTE, check LE doppler Inpatient care Subjective: low bp has resolved. feels better. no cp Objective: Vital Signs Temp Pulse Resp BP Pulse Ox 36.8 C 96 16 111/64 95 11/21/17 12:04 11/21/17 12:04 11/21/17 12:04 11/21/17 12:04 11/21/17 12:04 Microbiology 11/20/17 20:50 Gastrointestinal Tract Panel (PCR) - Final Stool No Organism Detected Laboratory Results 11/21/17 05:03 11/21/17 05:03 11/20/17 11/21/17 11/22/17 05:59 05:59 05:59 Intake Total 2730 Balance 2730 PT 16.7 SEC (12.0-15.0) H 11/20/17 22:47 INR 1.33 (0.83-1.16) H 11/20/17 22:47 - Physical Exam Constitutional: no apparent distress Eyes: PERRL, EOMI Ears, Nose, Mouth, Throat: moist mucous membranes Cardiovascular: regular rate and rhythym, No edema Respiratory: no respiratory distress, no rales or rhonchi Gastrointestinal: normoactive bowel sounds Skin: warm Musculoskeletal: full muscle strength Neurologic: AAOx3 Psychiatric: interacting appropriately, not anxious, not encephalopathic Lymph, Heme, Immunologic: No petechiae ICD10 Worksheet Patient Problems: Problems Problem Status Onset Supraventricular tachycardia Acute Anastomotic leak of intestine Acute Complication of colostomy Acute Diverticulitis large intestine Acute Incisional abscess Acute Postoperative vomiting Acute
[2017-11-21] MEDS: HEPARIN/DEXTROSE 500 ML IV SCH (18:23)
--- NOTE | 2017-11-21 23:36 | GCON ---
[f rep st] CONSULTATION DATE OF CONSULTATION: 11/21/2017 REASON FOR EVALUATION: Wound infection, pulmonary embolism. HISTORY OF PRESENT ILLNESS: 67-year-old male, well known to me, status post recent colostomy reversal with complex abdominal reconstruction with Strattice mesh placement and protective loop ileostomy. He had an unremarkable initial surgical course. He was discharged to home and readmitted with a postoperative ileus. He was discharged to home recently in improved condition. He re- presented to the emergency room with acute onset of lightheadedness, dizziness, hypotension. ED workup disclosed a new pulmonary embolism with SVT. He was rate controlled with the use of adenosine and started on a heparin drip. Further imaging also included abdominal CT scan showing a large abdominal fluid collection which had otherwise been asymptomatic prior to admission. Surgery has been requested for further evaluation and management of his postoperative wound. PAST MEDICAL HISTORY: Chronic back pain. Migraine headaches. PAST SURGICAL HISTORY: 1. Elbow ORIF lumbar laminectomy, tonsillectomy and adenoidectomy, laparoscopic bilateral inguinal hernia repair, multiple prior colectomy and colostomy procedures for diverticulitis complicated by colocutaneous fistula, wound infection, and hernia placement. 2. Colostomy reversal with a complex abdominal reconstruction with loop ileostomy creation. HOME MEDICATIONS: Flexeril p.r.n. ALLERGIES: Codeine: Rash, itching. SOCIAL HISTORY: No significant alcohol or tobacco use. He is to [employer]. FAMILY HISTORY: Noncontributory. REVIEW OF SYSTEMS: Notable for above GI complaints as well as acute onset cardiorespiratory complaints. PHYSICAL EXAMINATION: VITAL SIGNS: Temperature 36.8, blood pressure 111/60, pulse 96, respirations 16. GENERAL: The patient is alert, appropriate, comfortable, in no distress. HEART: Regular. LUNGS: Clear. ABDOMEN: Soft with a nontender midline wound fluid collection with minimal overlying erythema. Stoma pink and productive of brown succus. EXTREMITIES: Without swelling or tenderness. NEUROLOGIC: Alert and appropriate. LABORATORY DATA: White count 10, hemoglobin 10, platelets 324. Electrolytes within reference range. TSH 4.5. Troponin 0.225. CT images were directly reviewed on PACS: New right middle and lower lobe pulmonary emboli. CT abdomen and pelvis with a large superficial abdominal wall fluid collection with gas. PROCEDURE: The midline wound was initially punctured with an 18-gauge needle. Purulent fluid was noted. Local anesthetic was subsequently infiltrated. The midline wound was reopened. A large volume of purulence was evacuated. Loculations were all broken up. A 1/2-inch [place] drain was placed into the wound and secured with a 3-0 nylon suture. Fluid was sent for culture and sensitivity. No immediate complications occurred. IMPRESSION: 1. Postoperative infected seroma - now status post drainage. While in the hospital can continue current intravenous antibiotics. Would recommend transition to p.o. antibiotics upon discharge once anticoagulation plans are completed. Local wound care instructions were explained to the patient's family and nursing staff. Abscess management plans were discussed with Dr. Perez. 2. New-onset pulmonary embolism with supraventricular tachycardia converted to a normal sinus rhythm. Anticoagulation appropriately started. The patient to be transitioned to an oral agent as per Hospitalist Service. /[id number]/MODL MTDD
[2017-11-22 08:38] LABS: PLATELET COUNT 395 10^3/uL (150-400)
[2017-11-22] MEDS: HEPARIN/DEXTROSE 500 ML IV SCH (08:43)
--- NOTE | 2017-11-22 09:34 | PDMN ---
Medical Necessity Medical necessity: [facility] M160 Sepsis and Other Febrile Illness, without Focal Infection, A-3 days. 67 y/o presented with SVT, thought to be secondary to infection. Noted elevated WBC, anemic H/H 03/10.4, scans show pt developed abscess abd wall, ID consulted, IV antibx and antifungals required, continue IV fluids (pt hypotensive), blood cx pending, IR drainage procedure pending. Surgical consult. New PE noted, heparin gtt started. Change from OBS to INPT 04/29 @ 1421
[2017-11-22 12:10] VITALS: BP 118/68
--- NOTE | 2017-11-22 13:25 | ASMTCMCOM ---
CM Note CM Note Notes: Pts case discussed in tx rounds. Pt has a flaquito drain in producing a fair amount of output. Pt is currently on rocephin and flagyl for iv antibiotics. It is uncertain if pt will need ivabx at time of d/c. Pt was d/c'd from [facility] on 11/15. Pt had an RN to monitor his respiratory system. Pt has been observed walking well around the unit. Needs are TBD at this time. CM to follow. Plan: TBD Date Signed: 11/22/2017 01:24 PM Electronically Signed By:AJ Cox
--- NOTE | 2017-11-22 14:11 | HOSPPROG ---
Hospitalist Progress Note Assessment/Plan: #Abd wall post operative infected seroma #Sepsis, resolved #RML and RLL PE #elevated troponin, likely due to strain vs. PE. Doubt CV etiology -EKG with no e/ o ischemia -no active chest pain #Acute Kidney Injury: resolved Plan: -Rocephin, Flagyl, ID following -stop IVF -Dr. Osborne to see -Heparin drip. Can change to Eliquis soon if no further procedure performed or scheduled -repeat trop. check TTE, check LE doppler Inpatient care Subjective: no cp or sob. no n/v. Afebrile. BP is stable Objective: Vital Signs Temp Pulse Resp BP Pulse Ox 36.6 C 92 18 118/68 98 11/22/17 12:10 11/22/17 12:10 11/22/17 12:10 11/22/17 12:10 11/22/17 12:10 Laboratory Results 11/22/17 08:15 11/21/17 11/22/17 11/23/17 05:59 05:59 05:59 Intake Total 1343 Output Total 450 Balance 893 PT 16.7 SEC (12.0-15.0) H 11/20/17 22:47 INR 1.33 (0.83-1.16) H 11/20/17 22:47 - Physical Exam Constitutional: no apparent distress Eyes: PERRL, EOMI Ears, Nose, Mouth, Throat: moist mucous membranes, hearing normal Cardiovascular: regular rate and rhythym, irregularly irregular Respiratory: no respiratory distress, no rales or rhonchi Gastrointestinal: normoactive bowel sounds, soft, non-tender abdomen Skin: warm Neurologic: AAOx3 Psychiatric: interacting appropriately, not anxious, not encephalopathic Lymph, Heme, Immunologic: No petechiae ICD10 Worksheet Patient Problems: Problems Problem Status Onset Supraventricular tachycardia Acute Anastomotic leak of intestine Acute Complication of colostomy Acute Diverticulitis large intestine Acute Incisional abscess Acute Postoperative vomiting Acute
--- NOTE | 2017-11-22 14:18 | PCMIDPN ---
Assessment/Plan: Assessment: Incisional abscess-polymicrobial. G stain is showing multiple organisms. Cultures are still pending. Patient is empirically being treated with ceftriaxone and metronidazole. Clinically he feels much better today. At this point I would continue the ceftriaxone and metronidazole empiric regimen and follow cultures going forward. 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 Plan: 1. Continue empiric coverage with ceftriaxone and metronidazole. 2. Monitor output of the open wound. 3. Follow up on culture data. 11/22/17 14:15 11/22/17 14:16 Subjective: Patient is sitting up in his hospital bed. He has no new complaints. Denies fevers or chills. Notes that he still has some output from his abdominal wound. Tolerating antibiotics without rash or itching. Objective: Ceftriaxone # 3 Metronidazole # 2 Vital Signs Temp Pulse Resp BP Pulse Ox 36.6 C 92 18 118/68 98 11/22/17 12:10 11/22/17 12:10 11/22/17 12:10 11/22/17 12:10 11/22/17 12:10 Laboratory Results 11/22/17 08:15 11/21/17 11/22/17 11/23/17 05:59 05:59 05:59 Intake Total 1343 Output Total 450 Balance 893 - Physical Exam General Appearance: WD/WN, alert, no apparent distress, non-toxic Respiratory: lungs clear, normal breath sounds, No respiratory distress Cardiac/Chest: regular rate, rhythm, No tachycardia Abdomen: non-tender, soft, distended (Mildly), other (Ostomy on right side of midline. Abdominal wound on left side of midline. Recently changed. No strike through.), No mass Skin: normal color, warm/dry Neuro/Psych: alert, normal mood/affect, oriented x 3 ICD10 Worksheet Patient Problems: Problems Problem Status Onset Supraventricular tachycardia Acute Anastomotic leak of intestine Acute Complication of colostomy Acute Diverticulitis large intestine Acute Incisional abscess Acute Postoperative vomiting Acute
[2017-11-22] MEDS ORDERED: AMOXICILLIN/CLAVULANATE POT 875/125 MG TAB PO SCH (14:30)
--- NOTE | 2017-11-22 14:30 | SOAPPROG ---
SOAP Progress Note Assessment/Plan: Assessment:no complaints. no cp or sob. no abd c/o. avss. comfortable. abd soft. drainage more serosang today. doing great. ok to dc from surg standpoint. transition to eliquis today. po augmentin x10d. office f/u next wk. current surgical patient s/p colostomy takedown with complex abdominal wall reconstruction with biologic mesh and protective loop ileostomy. admitted postop with ileus which has subsequently resolved. readmitted last evening with PE and SVT - heparinized and rate controlled with meds. feeling much better today. imaging disclosed a large abd wall fluid collection at site of prior seroma/postop drains. abscess drained at bedside. local wound care instructions explained to patient and staff. will continue short po abx course as outpatient. Plan: 11/21/17 13:38 11/22/17 14:25 Objective: Vital Signs Temp Pulse Resp BP Pulse Ox 36.6 C 92 18 118/68 98 11/22/17 12:10 11/22/17 12:10 11/22/17 12:10 11/22/17 12:10 11/22/17 12:10 Laboratory Results 11/22/17 08:15 11/21/17 11/22/17 11/23/17 05:59 05:59 05:59 Intake Total 1343 Output Total 450 Balance 893 PT 16.7 SEC (12.0-15.0) H 11/20/17 22:47 INR 1.33 (0.83-1.16) H 11/20/17 22:47 ICD10 Worksheet Patient Problems: Problems Problem Status Onset Supraventricular tachycardia Acute Anastomotic leak of intestine Acute Complication of colostomy Acute Diverticulitis large intestine Acute Incisional abscess Acute Postoperative vomiting Acute
--- NOTE | 2017-11-22 15:19 | PDDCSUM ---
Discharge Summary Discharge Summary: 67 yo male admitted with abd wall seroma, sepsis, and PE. Stared on IV abx. Stated on IV Heparin. Seroma was drained at bedside by surgery. Abx now changed to Augmentin x 10 days. Eliquis has been started. He will need treatment for 3 months. He is hemodynamically stable. DDX: #Abd wall post operative infected seroma #Sepsis, resolved #RML and RLL PE #elevated troponin, likely due to strain vs. PE. Doubt CV etiology -EKG with no e/ o ischemia -no active chest pain #Acute Kidney Injury: resolved F/U: with Dr. Osborne next week Meds: see med rec. New meds: Augment, Eliquis Exam: Please see progress note from today total time spent on discharge is 35 minutes
--- NOTE | 2017-11-22 15:34 | ASMTLACE ---
LACE Length of stay for Answers: 2 days current admission Acuity / Level of Answers: Yes Care: Did the patient have an inpatient admission? 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
--- NOTE | 2017-11-22 15:36 | ASMTDCNOTE ---
Case Management Discharge Discharge Order Complete? Answers: Yes Patient to Obtain Answers: via Family Medications Transportation Arranged Answers: Family/Friends EMTALA Complete Answers: No Case Management Transport Answers: No Form Complete Faxed Final Orders Answers: No Agency/Facility Transfer Answers: No Report Printed & Faxed to Receiving Agency Family Notified Answers: No Discharge Comments Notes: Pts case discussed in tx rounds. Dr. Osborne gave the OK to d/c pt on oral antibiotics. No other needs identified at this time. CM available for changes. Plan: Independent Date Signed: 11/22/2017 03:36 PM Electronically Signed By:AJ Cox
== END 2017-11-22 17:38 | disposition home or self-care (01) | DRG 862 ==
LOC: F2W 20:39 → OBSVTOIN 11-21 14:21
PROVIDERS: ADMIT Internal Medicine; ATTEND Family Medicine
DX: T81.4XXA Infection following a procedure, initial encounter (principal); I97.622 Postprocedural seroma of a circulatory system organ or structure following other procedure; A41.9 Sepsis, unspecified organism; B95.2 Enterococcus as the cause of diseases classified elsewhere; B96.89 Other specified bacterial agents as the cause of diseases classified elsewhere; I26.99 Other pulmonary embolism without acute cor pulmonale; N17.9 Acute kidney failure, unspecified; I47.1 Supraventricular tachycardia; K90.0 Celiac disease; Z93.2 Ileostomy status
CPT/HCPCS: 82435-PO; 82565-PO; 82947-PO; 84132-PO; 84295-PO; 84484-PO; 84520-PO; 85014-PO; 85520-90; 96374; G0378; J0153; J0696; J1644; Q9967